=== PATIENT | male | born 1955 | race Caucasian/White ===

== ENCOUNTER → 2023-12-12 06:29 | Day surgery (SDC) | payer OTHER, SELFPAY | LOC: GI 06:29 | PROVIDERS: ATTENDING PHYSICIAN Internal Medicine Gastroenterology | DX: D12.4 Benign neoplasm of descending colon (principal); D12.6 Benign neoplasm of colon, unspecified; K57.30 Diverticulosis of large intestine without perforation or abscess without bleeding; K56.699 Other intestinal obstruction unspecified as to partial versus complete obstruction; K64.8 Other hemorrhoids; R19.5 Other fecal abnormalities; K22.70 Barrett's esophagus without dysplasia; K29.80 Duodenitis without bleeding; K22.89 Other specified disease of esophagus; K44.9 Diaphragmatic hernia without obstruction or gangrene; K31.89 Other diseases of stomach and duodenum; R10.13 Epigastric pain | CPT/HCPCS: 45385; 45381; 43239; 88305; 88342 ==

== ENCOUNTER → 2024-07-21 12:49 | Outpatient (REF) | payer OTHER, SELFPAY | LOC: HWRAD 12:49 | PROVIDERS: ATTENDING PHYSICIAN Internal Medicine | DX: R06.02 Shortness of breath (principal) | CPT/HCPCS: 71046 ==

== ENCOUNTER 2024-07-25 10:20 | Inpatient (IN) | payer OTHER, SELFPAY ==
[2024-07-25] VITALS (37 sets, daily range): BP systolic 90–123; BP diastolic 72–101; PULSE 2–160; BMI 23.4; BMI 22.1
[2024-07-25] MEDS: DUONEB 3 ML INH ×3 (05:49→19:24)
[2024-07-25] MEDS: DECADRON 10 MG IV (05:49)
--- NOTE | 2024-07-25 05:53 | ED.GENMED ---
History of Present Illness
<VIKI Smith - Last Filed: 07/25/24 22:09>
General
Chief Complaint: Breathing Problem
Source: patient and family
Exam Limitations: none
Time Seen by Provider: 07/25/24 05:28
Nursing documentation reviewed up to this point in time: agreed with
History of Present Illness
History of Present Illness:
Patient is a 68yo M w/ newly diagnosed COPD who presents w/ increased work of breathing x3wks. Saw PCP Sunday, dx w/ PNA, and started on Augmentin, azithromycin, prednisone, and albuterol. Pt is visibly SOB w/ accessory muscle use. Family states he
has been like this the past few nights but pt refused to come to ER. Reports PCP told them if sxs worsen or don't improve go to ER. He admits to mild nausea, chronic dry cough, and sore throat. His family states he has not eaten in 3 days due to
SOB. He denies chest pain, palpitations, and diaphoresis.
Past History
<VIKI Smith - Last Filed: 07/25/24 22:09>
Past History
ED Past Medical History: HTN and Other (Hip DJD)
ED Past Surgical History: Orthopedic (Bilateral total hip replacement)
Social History
Tobacco: Smoker
Alcohol: None
Drug: Former user
Living: with family
Employment: Not employed
Family History
Family History: Hypertension; Negative Early CAD or CAD
Review of Systems
<VIKI Smith - Last Filed: 07/25/24 22:09>
Review of Systems
Constitutional: Reports fatigue and chills; Denies fever
EENT: Reports sore throat
Respiratory: Reports cough and trouble breathing
Cardiac: Denies chest pain
ABD/GI: Reports nausea; Denies abdominal pain, vomiting, diarrhea or constipated
: Denies dysuria
Musculoskeletal: Denies joint pain, muscle pain or back pain
Neurological: Denies dizzy, headache, weakness or numbness
Phy Exam
<VIKI Smith - Last Filed: 07/25/24 22:09>
General Physical Exam
General Presentation: severe distress
General age: appears stated age
General Skin: warm and dry
General Habitus: normal
General Mental: alert
Cardiovascular Exam
Cardiovascular Exam: no edema, no gallop, no murmur and irregularly irregular
Pulmonary Exam
Pulmonary Exam: accessory muscle use, generalized wheezing and respiratory distress
Neurological Exam
Neurological Exam: alert, oriented x3, no motor deficits, no sensory deficits and speech normal
Scores
<VIKI Smith - Last Filed: 07/25/24 22:09>
Heart Failure Risk
HF Risk Score: 5
Admission Status: VERY HIGH RISK 39.8% Consider admission to hospital
<Ramez Fernandez DO - Last Filed: 07/25/24 07:25>
Heart Failure Risk
Heart Failure Risk Score: Yes
History of Stroke or TIA: No
History of intubation for respiratory distress: No
Heart rate on ED arrival >/= 110: Yes
SaO2 <90% on arrival on room air: Yes
HR >/=110 during 3min walk test (or too ill to perform test): Yes
ECG has acute ischemic changes: No
Urea >/=12mmol/L (BUN 33.6mg/dL): Yes
Serum CO2>/=35mmol/L: No
Troponin I or T elevated to [place] Level (0.4mg/dL): No
NT-proBNP >/=5,000ng/L (5,000pg/ml): Yes
HF Risk Score: 5
Admission Status: VERY HIGH RISK 39.8% Consider admission to hospital
Sepsis
<VIKI Smith - Last Filed: 07/25/24 22:09>
Sepsis Screening
Sepsis Assessment: Sepsis Ruled Out
Sepsis Screen
Sepsis Screen: Sepsis Ruled Out
Date: 07/25/24
Time: 22:09
Course
<VIKI Smith - Last Filed: 07/25/24 22:09>
Orders/Labs/Results
Orders:
Orders
07/25/24 05:29
EKG [Electrocardiogram (*1)] Urgent
Reason for Study: Shortness of Breath
EKG- Treatment ONCE
07/25/24 05:34
Cardiac Monitoring- Treatment ONCE
07/25/24 05:35
CR Chest Portable - 1 View Urgent
Comment:
Reason For Exam: dyspneA
Reason Study Needs to be Portable: Patient Unstable
07/25/24 05:42
Dexamethasone Sod Phosphate [Decadron] 10 mg IV NOW STA
Ipratropium/Albuterol Sulfate [Duoneb] 3 ml INH R NOW ONE
07/25/24 05:46
Complete Blood Count/With Diff Urgent
Comprehensive Metabolic Panel Urgent
Magnesium Urgent
NT-proBNP Urgent
PTT Urgent
Prothrombin Time Urgent
Troponin I Urgent
07/25/24 Breakfast
Cholesterol Lowering
At Your Request: Limited Participation
Fluid Restriction: 1440 mL/day (48 oz)
Cholesterol Lowering: Sodium, 2 Gram
07/25/24 07:12
Furosemide [Lasix] 60 mg IV NOW STA
Bipap [RESP] Urgent
Patient to use own unit?: No
Inspiratory Pressure (cm H2O): 12
Expiratory Pressure (cm H2O): 5
07/25/24 07:29
Diltiazem HCl [Cardizem] 10 mg IV NOW STA
07/25/24 08:37
Diltiazem 125 mg/125 ml Nss [Cardizem] 125 mg in 125 ml IV NOW
Initial dose in mg/hr, then titrate:: 5
Titrate to keep:: Heart rate 80-100 bpm
Titrate by mg/hr:: 5 mg/hr
Frequency of titrations (minutes):: 15
Maximum dose in mg/hr:: 15
07/25/24 10:02
Admit/Transfer Patient As Directed
Co-Sign Provider:
Level of Care: Inpatient admission
Assign to:: IMU- Intermediate Care
Physician / Group: lazaro/medicine
Diagnosis: acute hypoxic resp failure
Reason for Hospitalization: acute hypoxic resp failure
Expected length of stay greater than two midnights?: Yes
ELOS- Estimated Length of Stay in days: 3
I certify the patient meets the requirements for IP care: Yes
07/25/24 10:03
PRN Pain Medication Management As Directed
May give lesser potent ordered pain med per pt: Yes
preference::
Protocol:: Medication orders for pain may be administered in a
manner that supports deferring to patient preference
when the pt is:
- Requesting an ordered lesser potent pain medication.
Least to most potent pain medications are defined
as: acetaminophen < NSAID < tramadol < opioids
(morphine, oxycodone, hydromorphone).
- Requesting a lesser dose of the same medication IF
ORDERED.
- Requesting a less intrusive route of administration
if both routes are prescribed by the provider (PO <
IV).
07/25/24 10:04
Code Status As Directed
Resuscitation Status: Full Code
07/25/24 11:03
Diltiazem 125 mg/125 ml Nss [Cardizem] 125 mg in 125 ml IV PER PROTOCOL
Initial dose in mg/hr, then titrate:: 5
Titrate to keep:: Heart rate 80-100 bpm
Titrate by mg/hr:: 5 mg/hr
Frequency of titrations (minutes):: 15
Maximum dose in mg/hr:: 15
Diltiazem Extended Release [Cardizem Cd] 120 mg PO DAILY
Ipratropium/Albuterol Sulfate [Duoneb] 3 ml INH R Q4HPRN PRN
07/25/24 11:03
Echo 2D MMode Color/Doppler Urgent
Reason for Study: heart failure
CARDIOLOGY CONSULT Routine
Consulting Provider: Blake Jalloh
Was physician already notified: Yes
HF DIETARY CONSULT Routine
HF EDUCATOR CONSULT Routine
Comment:
Activity As Directed
Activity Level: As Tolerated
Intake/ Output As Directed
Frequency: Per unit guidelines
Patient Education As Directed
Type: CHF folder
Comment: give on admission. Document in Interdisciplinary Education record
Sleep Apnea Assessment by RN As Directed
Comment:
Physician Instructions:
Vital Signs As Directed
Frequency: Other
Additional Instructions:: Q12 or per unit guidelines if more frequent.
Weight As Directed
Frequency: Daily
Type of Scale: Standing Scale
Comment: Daily morning weight. If unable to stand, use balanced bed scale.
Weight As Directed
Frequency: Once
Type of Scale: Standing Scale
Comment: Upon Admission. If unable to stand, use balanced bed scale.
Copd Education [RESP] Routine
Pulse Ox/cont/shift [RESP] Routine
Quantity: 1
Special Instructions: Daily pulse oximetry at rest. If greater than 92% at rest also obtain pulse oximetry
while ambulating as tolerated.
Ot Eval And Treat Routine
Pt Eval And Treat Routine
Activity Level: As Tolerated
US Abdomen Complete/Upper Routine
Comment:
Reason For Exam: transaminitis
DX Deep Vein Thrombosis Video Routine
07/25/24 11:28
COVID-19 Antigen Routine
Source: Nasal Swab
TSH Reflex To Free T4 Urgent
Troponin I Q6H
Comment: at admission & every 6 hours x 2 (3 total), ECG to be done with each level
Vancomycin MRSA PCR Screen Routine
WILLIE Source: Nose
Specimen Description:
07/25/24 12:00
Ipratropium/Albuterol Sulfate [Duoneb] 3 ml INH R QID
07/25/24 16:00
Furosemide [Lasix] 80 mg IV BID AT 0800,1600
Heparin 5,000 units SC Q8
07/25/24 18:15
Troponin I Q6H
Comment: at admission & every 6 hours x 2 (3 total), ECG to be done with each level
07/25/24 23:03
Troponin I Q6H
Comment: at admission & every 6 hours x 2 (3 total), ECG to be done with each level
07/26/24 06:00
Complete Blood Count/No Diff IN AM
Comprehensive Metabolic Panel IN AM
Magnesium IN AM
07/26/24 08:00
Rosuvastatin Calcium [Crestor] 20 mg PO DAILY
07/27/24 06:00
Complete Blood Count/No Diff IN AM
Comprehensive Metabolic Panel IN AM
07/28/24 06:00
Complete Blood Count/No Diff IN AM
Comprehensive Metabolic Panel IN AM
Abnormal Lab Results
07/25/24
05:46
WBC 19.7 H 10^3/uL
(4.8-10.8)
RBC 4.28 L 10^6/uL
(4.70-6.10)
MCV 100.5 H fL
(80.0-94.0)
MCH 36.0 H pg
(27.0-31.0)
Abs Immat Gran (auto) 0.2 H 10^3/uL
(0-0.05)
Absolute Neuts (auto) 15.9 H 10^3/uL
(1.4-6.5)
Absolute Monos (auto) 1.6 H 10^3/uL
(0.1-0.6)
Immature Gran % 0.8 H %
(0-0.5)
Neutrophils % 80.7 H %
(42.2-75.2)
Lymphocytes % 10.0 L %
(20.5-51.1)
PT 17.1 H Sec
(11.4-14.6)
Sodium 133 L mmol/L
(135-145)
Carbon Dioxide 12 L* mmol/L
(22-30)
BUN 45 H mg/dl
(9-20)
Creatinine 1.7 H mg/dL
(0.7-1.3)
Glucose 118 H mg/dl
(70-99)
Total Bilirubin 1.5 H mg/dl
(0.2-1.3)
AST 122 H U/L
(17-59)
ALT 139 H U/L
(0-50)
Troponin I 0.041 H* ng/ml
07/25/24 05:46
07/25/24 05:46
Vital Signs
Initial and Last Documented VS:
Initial Vital Signs
Pulse Resp Pulse Ox
177 30 96
07/25/24 05:25 07/25/24 05:25 07/25/24 05:25
Last Documented Vital Signs
Temp Pulse Resp BP Pulse Ox
97.8 F 128 15 115/78 93
07/25/24 19:19 07/25/24 22:02 07/25/24 19:27 07/25/24 22:02 07/25/24 19:27
Mariselalt;Ramez Fernandez, - Last Filed: 07/25/24 07:25>
Orders/Labs/Results
Orders:
Orders
07/25/24 05:29
EKG [Electrocardiogram (*1)] Urgent
Reason for Study: Shortness of Breath
EKG- Treatment ONCE
07/25/24 05:34
Cardiac Monitoring- Treatment ONCE
07/25/24 05:35
CR Chest Portable - 1 View Urgent
Comment:
Reason For Exam: dyspneA
Reason Study Needs to be Portable: Patient Unstable
07/25/24 05:42
Dexamethasone Sod Phosphate [Decadron] 10 mg IV NOW STA
Ipratropium/Albuterol Sulfate [Duoneb] 3 ml INH R NOW ONE
07/25/24 05:46
Complete Blood Count/With Diff Urgent
Comprehensive Metabolic Panel Urgent
Magnesium Urgent
NT-proBNP Urgent
PTT Urgent
Prothrombin Time Urgent
Troponin I Urgent
07/25/24 Breakfast
Cholesterol Lowering
At Your Request: Limited Participation
Fluid Restriction: 1440 mL/day (48 oz)
Cholesterol Lowering: Sodium, 2 Gram
07/25/24 07:12
Furosemide [Lasix] 60 mg IV NOW STA
Bipap [RESP] Urgent
Patient to use own unit?: No
Inspiratory Pressure (cm H2O): 12
Expiratory Pressure (cm H2O): 5
07/25/24 07:29
Diltiazem HCl [Cardizem] 10 mg IV NOW STA
07/25/24 08:37
Diltiazem 125 mg/125 ml Nss [Cardizem] 125 mg in 125 ml IV NOW
Initial dose in mg/hr, then titrate:: 5
Titrate to keep:: Heart rate 80-100 bpm
Titrate by mg/hr:: 5 mg/hr
Frequency of titrations (minutes):: 15
Maximum dose in mg/hr:: 15
07/25/24 10:02
Admit/Transfer Patient As Directed
Co-Sign Provider:
Level of Care: Inpatient admission
Assign to:: IMU- Intermediate Care
Physician / Group: lazaro/medicine
Diagnosis: acute hypoxic resp failure
Reason for Hospitalization: acute hypoxic resp failure
Expected length of stay greater than two midnights?: Yes
ELOS- Estimated Length of Stay in days: 3
I certify the patient meets the requirements for IP care: Yes
07/25/24 10:03
PRN Pain Medication Management As Directed
May give lesser potent ordered pain med per pt: Yes
preference::
Protocol:: Medication orders for pain may be administered in a
manner that supports deferring to patient preference
when the pt is:
- Requesting an ordered lesser potent pain medication.
Least to most potent pain medications are defined
as: acetaminophen < NSAID < tramadol < opioids
(morphine, oxycodone, hydromorphone).
- Requesting a lesser dose of the same medication IF
ORDERED.
- Requesting a less intrusive route of administration
if both routes are prescribed by the provider (PO <
IV).
07/25/24 10:04
Code Status As Directed
Resuscitation Status: Full Code
07/25/24 11:03
Diltiazem 125 mg/125 ml Nss [Cardizem] 125 mg in 125 ml IV PER PROTOCOL
Initial dose in mg/hr, then titrate:: 5
Titrate to keep:: Heart rate 80-100 bpm
Titrate by mg/hr:: 5 mg/hr
Frequency of titrations (minutes):: 15
Maximum dose in mg/hr:: 15
Diltiazem Extended Release [Cardizem Cd] 120 mg PO DAILY
Ipratropium/Albuterol Sulfate [Duoneb] 3 ml INH R Q4HPRN PRN
07/25/24 11:03
Echo 2D MMode Color/Doppler Urgent
Reason for Study: heart failure
CARDIOLOGY CONSULT Routine
Consulting Provider: Blake Jalloh
Was physician already notified: Yes
HF DIETARY CONSULT Routine
HF EDUCATOR CONSULT Routine
Comment:
Activity As Directed
Activity Level: As Tolerated
Intake/ Output As Directed
Frequency: Per unit guidelines
Patient Education As Directed
Type: CHF folder
Comment: give on admission. Document in Interdisciplinary Education record
Sleep Apnea Assessment by RN As Directed
Comment:
Physician Instructions:
Vital Signs As Directed
Frequency: Other
Additional Instructions:: Q12 or per unit guidelines if more frequent.
Weight As Directed
Frequency: Daily
Type of Scale: Standing Scale
Comment: Daily morning weight. If unable to stand, use balanced bed scale.
Weight As Directed
Frequency: Once
Type of Scale: Standing Scale
Comment: Upon Admission. If unable to stand, use balanced bed scale.
Copd Education [RESP] Routine
Pulse Ox/cont/shift [RESP] Routine
Quantity: 1
Special Instructions: Daily pulse oximetry at rest. If greater than 92% at rest also obtain pulse oximetry
while ambulating as tolerated.
Ot Eval And Treat Routine
Pt Eval And Treat Routine
Activity Level: As Tolerated
US Abdomen Complete/Upper Routine
Comment:
Reason For Exam: transaminitis
DX Deep Vein Thrombosis Video Routine
07/25/24 11:28
COVID-19 Antigen Routine
Source: Nasal Swab
TSH Reflex To Free T4 Urgent
Troponin I Q6H
Comment: at admission & every 6 hours x 2 (3 total), ECG to be done with each level
Vancomycin MRSA PCR Screen Routine
WILLIE Source: Nose
Specimen Description:
07/25/24 12:00
Ipratropium/Albuterol Sulfate [Duoneb] 3 ml INH R QID
07/25/24 16:00
Furosemide [Lasix] 80 mg IV BID AT 0800,1600
Heparin 5,000 units SC Q8
07/25/24 18:15
Troponin I Q6H
Comment: at admission & every 6 hours x 2 (3 total), ECG to be done with each level
07/25/24 23:03
Troponin I Q6H
Comment: at admission & every 6 hours x 2 (3 total), ECG to be done with each level
07/26/24 06:00
Complete Blood Count/No Diff IN AM
Comprehensive Metabolic Panel IN AM
Magnesium IN AM
07/26/24 08:00
Rosuvastatin Calcium [Crestor] 20 mg PO DAILY
07/27/24 06:00
Complete Blood Count/No Diff IN AM
Comprehensive Metabolic Panel IN AM
07/28/24 06:00
Complete Blood Count/No Diff IN AM
Comprehensive Metabolic Panel IN AM
Abnormal Lab Results
07/25/24
05:46
WBC 19.7 H 10^3/uL
(4.8-10.8)
RBC 4.28 L 10^6/uL
(4.70-6.10)
MCV 100.5 H fL
(80.0-94.0)
MCH 36.0 H pg
(27.0-31.0)
Abs Immat Gran (auto) 0.2 H 10^3/uL
(0-0.05)
Absolute Neuts (auto) 15.9 H 10^3/uL
(1.4-6.5)
Absolute Monos (auto) 1.6 H 10^3/uL
(0.1-0.6)
Immature Gran % 0.8 H %
(0-0.5)
Neutrophils % 80.7 H %
(42.2-75.2)
Lymphocytes % 10.0 L %
(20.5-51.1)
PT 17.1 H Sec
(11.4-14.6)
Sodium 133 L mmol/L
(135-145)
Carbon Dioxide 12 L* mmol/L
(22-30)
BUN 45 H mg/dl
(9-20)
Creatinine 1.7 H mg/dL
(0.7-1.3)
Glucose 118 H mg/dl
(70-99)
Total Bilirubin 1.5 H mg/dl
(0.2-1.3)
AST 122 H U/L
(17-59)
ALT 139 H U/L
(0-50)
Troponin I 0.041 H* ng/ml
07/25/24 05:46
07/25/24 05:46
Vital Signs
Initial and Last Documented VS:
Initial Vital Signs
Pulse Resp Pulse Ox
177 30 96
07/25/24 05:25 07/25/24 05:25 07/25/24 05:25
Last Documented Vital Signs
Temp Pulse Resp BP Pulse Ox
97.8 F 128 15 115/78 93
07/25/24 19:19 07/25/24 22:02 07/25/24 19:27 07/25/24 22:02 07/25/24 19:27
<VIKI Smith - Last Filed: 07/25/24 22:09>
*Critical Care Note
Total Time (30-74mins, 75-104mins- exclusive of procedures): Not Applicable
<Ramez Fernandez DO - Last Filed: 07/25/24 07:25>
*Radiology
Radiology exam reviewed: radiology read reviewed
*Pulse Oximetry
Patient hypoxic: yes
*Critical Care Note
Total Time (30-74mins, 75-104mins- exclusive of procedures): 45 (Critical care statement: A total of 45 minutes of critical care time was provided for this patient. This time is separate from time utilized to perform the aforementioned documented
procedures. Aggregate critical care time includes only time during which I was engaged in work directl)
<VIKI Smith - Last Filed: 07/25/24 22:09>
Update Note
Update Note:
07/25/2024 06:50 AM - Patient states he does not feel any better after breathing tx. Continues to endorse SOB and deny chest pain. Pt appears in less respiratory distress than before.
ED Attending Note
<VIKI Smith - Last Filed: 07/25/24 22:09>
-
Portions of this chart may have been created with voice recognition software.� Occasional wrong word or��sound alike� substitutions may have occurred due to the inherent limitations of voice recognition software.
<Ramez Fernandez DO - Last Filed: 07/25/24 07:25>
ED Attending Note
Patient seen and examined by attending physician: Yes
I performed the substantive portion of visit, reviewed & personally made and approve the management plan that is documented in note by myself or LISA.: Yes
ED Attending Note:
This a pleasant 68-year-old male presents to the emergency department with 8 days of severe shortness of breath. According to family he has been struggling with breathing and has progressively been worsening. Family states that he has been in his
current condition for the last 4 days. He does not have home oxygen. He is a lifelong smoker, but he quit recently. Patient has refused to come to the emergency department until tonight. Patient reports no chest pain. He denies any weight gain.
He does have some nausea with a dry cough. He denies any vomiting. Patient has not been able to eat or speak in complete sentences for the last 3 days due to his severe shortness of breath. Patient was seen by his family doctor and advised to
come to the emergency department several days ago.
Vital signs are stable. Patient is hypoxic on room air
Nursing note reviewed. I agree with nursing documentation up to this point in time.
Home Meds and allergies reviewed.
NUMBER AND COMPLEXITY OF PROBLEMS ADDRESSED AT THE ENCOUNTER
� Chronic conditions affecting care: Chronic smoker,
� Acute Exacerbation and/or Progression of Chronic Illness: Exacerbation of newly diagnosed COPD.
� Differential Diagnosis includes: Suspicion of congestive heart failure, COPD exacerbation, pneumonia
AMOUNT AND/OR COMPLEXITY OF DATA TO BE REVIEWED AND ANALYZED
I performed an independent evaluation of the following and my interpretation is:
EKG: EKG shows a atrial fibrillation with rapid ventricular response rate of 172 right axis.
Pulse Ox: Hypoxic on room air
Swaging Machine Adjuster: Sinus Rhythm
CT:
X-rays: Chest x-ray shows pulmonary vascular congestion consistent with congestive heart failure. There are curly B-lines present.
Ultrasound:
Laboratory Studies: White blood cell count of 19.7. proBNP of 21,000. Bicarb of 12. Troponin of 0.041.
Other:
Review of other/old records: Echocardiogram from 2018 minimally thickened mitral valve leaflets with mild mitral regurg. Otherwise normal
Clinical information was obtained by an independent historian:
Prescriptions/Medications Considered but not given:
Further testing considered but not performed:
RISK OF COMPLICATIONS AND/OR MORBIDITY OR MORTALITY OF PATIENT MANAGEMENT
Social determinants of health affecting care: Poor medical compliance
Discussion with other providers:
Escalation of care including admission/observation vs risk of discharge considered: After being observed in the emergency department, patient is unstable for discharge and will be admitted for congestive heart failure
CRITICAL CARE NOTE:
Critical care statement: A total of 45 minutes of critical care time was provided for this patient. This time is separate from time utilized to perform the aforementioned documented procedures. Aggregate critical care time includes only time
during which I was engaged in work directly related to the patient's care, as described above, whether at the bedside or elsewhere in the Emergency Department.
Total Time (exclusive of procedures):
Update:
Discharge Plan
Departure
Patient Disposition: Admit
Date of Disposition: 07/25/24
Time of Disposition: 07:21
Admit to: ICU
Presentation/result/management discussed w/ accepting MD/DO: Hospitalist
Condition: Critical
Discharge Problem:
CHF (congestive heart failure), COPD (chronic obstructive pulmonary disease)
Interventions
Interventions:
*Risk Screen - Suicide Last Done: 07/25/24 05:32
*General Assessment Last Done: 07/25/24 06:06
*Neglect/Abuse Screening Last Done: 07/25/24 06:06
ED- Fall Risk Assessment Last Done: 07/25/24 06:02
*ED COVID-19 Vaccine History Last Done: 07/25/24 06:06
*Nursing Disposition Last Done: 07/25/24 11:26
ED- Cardiac Assessment Last Done: 07/25/24 06:02
ED- Pulmonary Assessment Last Done: 07/25/24 06:02
Discharge Date and Time
Discharge Date/Time: 07/25/24 11:27
[2024-07-25 05:58] LABS: % Basophils 0.2 % (0-2); % Immature Granulocytes 0.8 % (0-0.5); % Monocytes 8.3 % (1.7-9.3); % Neutrophils 80.7 % (42.2-75.2); Absolute Immature Granulocytes 0.2 10^3/uL (0-0.05); Absolute Monocytes 1.6 10^3/uL (0.1-0.6); Absolute Neutrophils 15.9 10^3/uL (1.4-6.5); Hemoglobin 15.4 g/dL (13.0-18.0); Mean Corp Hgb Conc. 35.8 g/dL (33.0-37.0); Mean Corpuscular Volume 100.5 fL (80.0-94.0); Mean Platelet Volume 10.3 fL (7.4-10.4); Nucleated Red Blood Cells % 0 % (-); Platelet Count 221 10^3/uL (130-400); Red Blood Cell Count 4.28 10^6/uL (4.70-6.10); Red Cell Dist. Width 13.3 % (11.5-14.5); White Blood Cell Count 19.7 10^3/uL (4.8-10.8)
[2024-07-25 06:08] LABS: APTT 24.8 Sec (23.4-35.0); INR 1.34; PT 17.1 Sec (11.4-14.6)
[2024-07-25 06:16] LABS: AST (SGOT) 122 U/L (17-59); Albumin 4.4 g/dl (3.5-5.0); Alkaline Phosphatase 118 U/L (38-126); Blood Urea Nitrogen 45 mg/dl (9-20); Calcium 9.8 mg/dl (8.4-10.2); Carbon Dioxide 12 mmol/L (22-30); Chloride 98 mmol/L (98-107); Estimated Creatinine Clearance 43 ml/min; Glucose 118 mg/dl (70-99); Magnesium 2.3 mg/dl (1.6-2.3); Potassium 4.6 mmol/L (3.5-5.1); Sodium 133 mmol/L (135-145); Total Bilirubin 1.5 mg/dl (0.2-1.3); Total Protein 6.7 g/dl (6.3-8.2); eGFR 43.37
[2024-07-25 06:22] LABS: NT-proBNP 21000 pg/ml
[2024-07-25 06:28] LABS: ALT (SGPT) 139 U/L (0-50)
[2024-07-25 06:35] LABS: Troponin I 0.041 ng/ml
[2024-07-25] MEDS: LASIX 60 MG IV (07:18)
[2024-07-25] MEDS: CARDIZEM 10 MG IV (07:52)
[2024-07-25] MEDS: CARDIZEM 125 IV ×2 (08:53→15:36)
--- NOTE | 2024-07-25 11:11 | PTCARENOTE ---
1055: Patient arrived to IMU with ED RN and RT. Patient wearing 6L NC with SpO2 94%. Patient slightly tachypneic. Patient in afib on tele with HR in the 160-170's. BP 99/84 with MAP of 90. Cardizem gtt running at 10 mg/hr. Dr. Ware, Dr. Peña,
and Tracy zepeda texted regarding HR and BP. Care going at this time.
[2024-07-25 11:51] LABS: COVID-19 Antigen Negative (Negative)
[2024-07-25 12:04] LABS: Troponin I 0.046 ng/ml
[2024-07-25 12:24] LABS: TSH Reflex To Free T4 2.57 uIU/ml (0.47-4.68)
--- NOTE | 2024-07-25 12:29 | CON.CAR ---
Addendum entered and electronically signed by Blake Jalloh MD 07/25/24 16:49:
I saw and examined the patient.
The Staffing Director's note was reviewed and I agree with the note.
Comment:
GEN: No distress, awake, Ox3
HEENT: supple, anicteric, mmm
LUNGS: bilat rhonchi
CV: Irreg, S1/S2, 1/6 syst LSB, S3+
ABD: soft, BS+, NT/ND
EXT: No edema
NEURO: Gross non-focal
SKIN: No rash
PLan:
68-year-old male with past medical history of hypertension, hyperlipidemia and COPD with longstanding tobacco and alcohol use presents with acute on chronic heart failure of unknown EF. He states for several weeks has had progressive shortness of
breath, orthopnea, PND, and cough. He was treated with antibiotics albuterol and prednisone with no improvement. He also was found to have a rapid heart rate and was sent to the emergency room he was found to be in new onset rapid atrial
fibrillation and acute congestive heart failure.
Check echocardiogram. I suspect his ejection fraction might be depressed.
Continue IV Cardizem for now. Heart rates remain very poorly controlled. Will start amiodarone with IV bolus and 400 mg p.o. 3 times daily load.
Start IV Lasix 80 mg IV twice daily and follow kidney function. Creatinine is at 1.7 we will need to follow this closely on IV Lasix.
Start IV heparin for anticoagulation. Clinically if he does not improved he likely will need a right and left heart catheterization on Sunday.
If ejection fraction is depressed we will need to initiate beta-simone therapy and wean off Cardizem. Would hold on SONU/ARB/aldosterone blocking agents with creatinine at 1.7. Continue to follow.
Original Note:
Consultation
Consultation Request
Date/Time Consultation Requested: 07/25/2024
Date/Time Consultation Performed: 07/25/2024
Requesting Provider: Dr. Ware
Performing Provider: Aisha Wolfe PA-C for Dr. Jalloh
Reason for Consultation: A-fib with rapid ventricular response
Medical History
-
History of Present Illness:
Patient is a 68-year-old male with past medical history significant for hypertension, hyperlipidemia, COPD with longstanding tobacco abuse and daily alcohol use who presents to emergency department 07/25/2024 with progressively worsening shortness of
breath. Patient and his family report his longtime smoker who has been weaning off cigarettes for approximately 6 months and recently stopped smoking 2 months ago. Patient has had ongoing dyspnea on exertion for at least 6 to 9 months. He is
rather sedentary and does little activity around the house or outside. Over the last 3-4 weeks shortness of breath has gotten worse and he has noted an ongoing cough. He saw primary care physician 07/21/2024 who ordered a chest x-ray which was
concerning for pneumonia and emphysema and he was started on azithromycin, Augmentin, Albuterol and prednisone. In the last 2 days patient developed chest heaviness associated with worsening dyspnea and rapid heartbeat prompting him to seek
emergency medical attention. Patient reports he has had poor appetite over the last 3 days and little oral intake.
In emergency department patient was found to be in atrial fibrillation with rapid ventricular response. Chest x-ray showed diffusely increased interstitial markings bilaterally with more focal opacities within the right midlung and left lung base.
proBNP elevated at 21,000. WBC 19.7, BUN/creatinine 45/1.7. Troponin initially 0.041. Patient was negative for COVID. Patient was given IV steroids, IV Lasix 60 mg and placed on IV diltiazem drip in emergency department. At time of this
evaluation patient is on 15 mL/h of diltiazem and heart rates remain poorly controlled. He continues to have shortness of breath and chest heaviness
Past medical history:
Hypertension
Hyperlipidemia
Tobacco abuse
COPD
Daily alcohol use
Bilateral hip replacements and shoulder replacement
Past Medical History
Past Medical History: Other (see HPI)
Past Surgical History: Orthopedic (Bilateral hip replacements and shoulder replacement)
Social History
Tobacco: Former Smoker (quit 2 months ago (May 2024))
Alcohol: Daily (3-4 vodka drinks daily)
Drug: None
Personal:
Living: With Family
Employment: Retired
Family History
Family History: Other (Father of brain aneurysm, hypertension. Brother of [place])
Allergies / Home Medications
Allergy/AdvReac Type Severity Reaction Status Date / Time
No Known Allergies Allergy Verified 07/25/24 05:24
�Medication �Instructions �Recorded �Confirmed �Type
amlodipine 10 mg tablet 10 mg PO DAILY Blood Pressure 07/25/24 07/25/24 History
amoxicillin 875 mg-potassium 1 tab PO Q12H Infection 07/25/24 07/25/24 History
clavulanate 125 mg tablet
azithromycin 250 mg tablet 250 mg PO DAILY Infection 07/25/24 07/25/24 History
bupropion HCl 150 mg 24 hr tablet, 300 mg PO DAILY Mental 07/25/24 07/25/24 History
extended release Health/Anxiety
ipratropium 0.5 mg-albuterol 3 mg 3 ml inhalation R BID 07/25/24 07/25/24 History
(2.5 mg base)/3 mL nebulization Lung/Breathing Issues
soln
prednisone 20 mg tablet 40 mg PO DAILY Anti-Inflammatory 07/25/24 07/25/24 History
rosuvastatin 20 mg tablet 20 mg PO DAILY High Cholesterol 07/25/24 07/25/24 History
umeclidinium 62.5 mcg-vilanterol 1 inh inhalation DAILY 07/25/24 07/25/24 History
25 mcg/actuation powdr for Lung/Breathing Issues
inhalation (Anoro Ellipta)
Review of Systems
-
History Source: Patient and Family
All other systems: Negative unless noted
Physical Exam
Vital Signs
Temp Pulse Resp BP Pulse Ox
97.8 F 157 27 101/77 94
07/25/24 11:02 07/25/24 12:15 11/08/24 12:15 07/25/24 12:00 07/25/24 12:18
GEN: Appears dyspneic with conversation on 6 L of oxygen lying in bed
HEENT: supple, anicteric, mmm
LUNGS: Diminished breath sounds otherwise CTA, no wheezes/rales
CV: Irregularly irregular, rapid/tachycardic, S1/S2, 1/6 syst murmur, no rub or gallop
ABD: soft, BS+, NT/ND
EXT: No edema, clubbing or cyanosis
NEURO: Gross non-focal
SKIN: No rash, warm, dry
Lab Results
07/25/24 05:46
07/25/24 05:46
Troponin I 0.046 ng/ml H* 07/25/24 11:28
Ruo-F-Ggcxykivdju Pept 17221 pg/ml 07/25/24 05:46
Impression / Plan
-
PCP: Antonieta Green
Can Crimper: Saw Dr. Sherice Perez once in 2018
Impression:
Presents 07/25/2024 with acute shortness of breath
Acute hypoxic respiratory insufficiency
Atrial fibrillation with rapid ventricular response, unknown duration
Acute heart failure with unknown ejection fraction, proBNP 21,000
MT
Abnormal LFTs
Abnormal troponin
Hypertension
Hyperlipidemia
Tobacco abuse
COPD
Daily alcohol use
Bilateral hip replacements and shoulder replacement
Echo 07/25/2024: Ordered
Echo 07/31/2018: EF 55 to 60%. Mild concentric LVH. Mild MR, mild TR, PAP 15 to 20 mmHg
Plan:
-Presents 07/25/2024 with acute shortness of breath
Acute hypoxic respiratory insufficiency initially arrived requiring BiPAP. Now on 6 L nasal cannula
--Longstanding history of tobacco abuse with abnormal PFTs in 2018 suggesting emphysema.
--Outpatient chest x-ray 07/21/2024 showed COPD with diaphragmatic flattening and increased retrosternal airspace as well as interstitial prominence and right perihilar distribution suggesting pneumonia. Treated with Augmentin and Zithromax by PCP
--Now on oral steroids and nebulizer. Would avoid albuterol and consider Xopenex given patient is in rapid atrial fibrillation
Atrial fibrillation with rapid ventricular response, unknown duration
--This is new diagnosis
-- Patient on diltiazem 15 mg/hr. Continues to have rapid ventricular response. May need to consider amiodarone as an alternative if heart rates remain difficult to control
--Would start heparin drip with eventual transition to oral anticoagulation
--Check echocardiogram once heart rate has improved
Acute heart failure with unknown ejection fraction, proBNP 21,000
--Patient got 60 mg IV Lasix in emergency department. Monitor and assess response. Continue IV diuresis
--Check echocardiogram when heart rate improves
--MT with admitting creatinine of 1.7. Continue to follow with diuresis. Creatinine was normal on outpatient labs in 2022
Abnormal troponin: Initial 0.041, repeat 0.046. Trend to peak. Suspect nonischemic myocardial injury secondary to atrial fibrillation with rapid ventricular response and acute heart failure exacerbation
Abnormal LFTs; suspect multifactorial secondary to hepatic congestion from acute heart failure as well as daily alcohol use
Daily alcohol use: Patient admits to having 1 vodka drink yesterday but normally has 3-4 drinks. Initiate MSAS protocol
HPI 07/25/2024:
Patient is a 68-year-old male with past medical history significant for hypertension, hyperlipidemia, COPD with longstanding tobacco abuse and daily alcohol use who presents to emergency department 07/25/2024 with progressively worsening shortness of
breath. Patient and his family report his longtime smoker who has been weaning off cigarettes for approximately 6 months and recently stopped smoking 2 months ago. Patient has had ongoing dyspnea on exertion for at least 6 to 9 months. He is
rather sedentary and does little activity around the house or outside. Over the last 3-4 weeks shortness of breath has gotten worse and he has noted an ongoing cough. He saw primary care physician 07/21/2024 who ordered a chest x-ray which was
concerning for pneumonia and emphysema and he was started on azithromycin, Augmentin, Albuterol and prednisone. In the last 2 days patient developed chest heaviness associated with worsening dyspnea and rapid heartbeat prompting him to seek
emergency medical attention. Patient reports he has had poor appetite over the last 3 days and little oral intake.
In emergency department patient was found to be in atrial fibrillation with rapid ventricular response. Chest x-ray showed diffusely increased interstitial markings bilaterally with more focal opacities within the right midlung and left lung base.
proBNP elevated at 21,000. WBC 19.7, BUN/creatinine 45/1.7. Troponin initially 0.041. Patient was negative for COVID. Patient was given IV steroids, IV Lasix 60 mg and placed on IV diltiazem drip in emergency department. At time of this
evaluation patient is on 15 mL/h of diltiazem and heart rates remain poorly controlled. He continues to have shortness of breath and chest heaviness
Data Reviewed
-
EKG: Report Reviewed by me, Discussed with Physician, Discussed with Nurse, Discussed with Patient and Discussed with Family
Radiology: Report Reviewed by me, Discussed with Physician, Discussed with Nurse, Discussed with Patient and Discussed with Family
Labs: Labs Reviewed by me, Discussed with Physician, Discussed with Nurse, Discussed with Patient and Discussed with Family
Old Records: Reviewed
--- NOTE | 2024-07-25 13:56 | PTCARENOTE ---
Patients HR remains elevated 150's-180's BP 123/85. Patient c/o of nausea and is dry heaving. 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
[2024-07-25] MEDS: ATIVAN 1 MG PO ×2 (14:07→22:00)
[2024-07-25] MEDS: VITAMIN B1 100 MG PO (14:07)
[2024-07-25] MEDS: FOLVITE 1 MG PO (14:07)
[2024-07-25] MEDS: HEPARIN 25000 UNITS/250 ML IV (14:19)
[2024-07-25] MEDS: CORDARONE 103 MG IV (14:36)
[2024-07-25 14:47] LABS: Hematocrit 42.5 % (39.0-52.0); Hemoglobin 15.4 g/dL (13.0-18.0); Mean Corp Hgb Conc. 36.2 g/dL (33.0-37.0); Mean Corpuscular Hgb 36.8 pg (27.0-31.0); Mean Corpuscular Volume 101.7 fL (80.0-94.0); Mean Platelet Volume 10.5 fL (7.4-10.4); Platelet Count 206 10^3/uL (130-400); Red Blood Cell Count 4.18 10^6/uL (4.70-6.10); Red Cell Dist. Width 13.3 % (11.5-14.5); White Blood Cell Count 11.3 10^3/uL (4.8-10.8)
[2024-07-25 14:52] LABS: APTT 26.3 Sec (23.4-35.0)
--- NOTE | 2024-07-25 14:54 | HPS.HSE ---
Family Physician
-
Family Physician: Jenna Green DO
Chief Complaint
-
Shortness of breath
History of Present Illness
60-year-old male with past medical history of hypertension, hyperlipidemia, recent diagnosis of COPD, daily alcohol use now presents for progressive shortness of breath. Over the last 3 to 4 weeks shortness of breath has gotten worse, associated
with coughing. Was started initially on antibiotics for possible pneumonia as well as COPD and started on Anora Ellipta as well as prednisone. Patient continues to have worsening symptoms along with palpitations seeking medical attention. Also
complains of poor appetite. Found to have rapid atrial fibrillation with RVR, x-ray with evidence of marked increased interstitial markings bilaterally with focal opacities within the right midlung and left lung, suspect fluid overload. proBNP
elevated at 21,000, white count 19.7 although on steroids. Creatinine 1.7. Troponin initially 0.041. SARS-CoV-2 negative. Was given IV steroids, IV Lasix, diltiazem drip. Patient was initially on noninvasive ventilation and quickly weaned down
to 6 L. Patient states he feels much better. Patient still requires additional regimen as patient is on diltiazem drip, max rate with borderline blood pressures with heart rate in the 140s.
Medical History
Past Medical History
Past Medical History: Reports Other
Additional Past Medical History:
Hypertension, hyperlipidemia, COPD, alcohol use
Past Surgical History: Reports None
Social History
Tobacco: Former Smoker
Alcohol: Daily
Drug: None
Personal:
Family History
Family History: Not pertinent
Allergies / Home Medications
Allergies reflects when Allergies were last updated in [employer].
Home Medications with original date entered in [employer]
Allergy/Medication List:
Allergies
Allergy/AdvReac Type Severity Reaction Status Date / Time
No Known Allergies Allergy Verified 07/25/24 05:24
Home Medications
amlodipine 10 mg tablet 10 mg PO DAILY Blood Pressure 07/25/24
amoxicillin 875 mg-potassium clavulanate 125 mg tablet 1 tab PO Q12H Infection 07/25/24
azithromycin 250 mg tablet 250 mg PO DAILY Infection 07/25/24
bupropion HCl 150 mg 24 hr tablet, extended release 300 mg PO DAILY Mental Health/Anxiety 07/25/24
ipratropium 0.5 mg-albuterol 3 mg (2.5 mg base)/3 mL nebulization soln 3 ml inhalation R BID Lung/Breathing Issues 07/25/24
prednisone 20 mg tablet 40 mg PO DAILY Anti-Inflammatory 07/25/24
rosuvastatin 20 mg tablet 20 mg PO DAILY High Cholesterol 07/25/24
umeclidinium 62.5 mcg-vilanterol 25 mcg/actuation powdr for inhalation (Anoro Ellipta) 1 inh inhalation DAILY Lung/Breathing Issues 07/25/24
Review of Systems
-
History Source: Patient
A 12 point ROS was completed and negative except as noted: Yes
Physical Exam
Vital Signs
Vital Signs
Temp Pulse Resp BP Pulse Ox
97.8 F 153 32 123/85 93
07/25/24 11:02 07/25/24 13:53 07/25/24 13:53 07/25/24 13:53 07/25/24 13:53
Physical Exam
General: Respiratory Distress and Appears in Distress
HEENT: NormoCephalic
Respiratory: Other (Diminished, 6 L)
Cardiac: Irregular Rhythm
GI: Non Tender
Musculoskeletal: No Clubbing
Skin: Warm and Dry
Neuro: Awake, Alert, Oriented and AO x 3
Hematologic/Lymphatic: No Lymphadenopathy
Psych: Calm
Laboratory Results
-
07/25/24 14:31
07/25/24 05:46
Laboratory Results
PT 17.1 Sec (11.4-14.6) H 07/25/24 05:46
INR 1.34 07/25/24 05:46
APTT 24.8 Sec (23.4-35.0) 07/25/24 05:46
Total Bilirubin 1.5 mg/dl (0.2-1.3) H 07/25/24 05:46
AST 122 U/L (17-59) H 07/25/24 05:46
ALT 139 U/L (0-50) H 07/25/24 05:46
Alkaline Phosphatase 118 U/L (38-126) 07/25/24 05:46
Troponin I 0.046 ng/ml H* 07/25/24 11:28
Data Reviewed
-
Diagnostic Radiology: Image Personally Visualized and interpreted and Report Reviewed by me
Lab Data: Labs Reviewed by me
Impression/Plan
-
IMPRESSION:
68-year-old male presenting for shortness of breath found to have atrial fibrillation with RVR, most likely CHF, COPD exacerbation
PLAN:
#Acute hypoxic respiratory failure
� Most likely secondary to CHF, atrial fibrillation, acute along with subsequent COPD exacerbation
� Treat COPD, CHF, A-fib
� Wean O2 as tolerated, was on noninvasive ventilation, weaned down to 6 L
� Doubt any pneumonia, monitor fever curve, blood pressure
� Low threshold to initiate antibiotics if needed
#Shortness of breath
Suspect secondary to atrial fibrillation, CHF, known type
� Troponins to rule out any cardiac ischemia
� Continue IV diuresis, 80 mg IV Lasix twice daily
� Echocardiogram
� Heart rate control
�DuoNebs standing, as needed
#Atrial fibrillation with RVR
� Diltiazem drip
� Starting amiodarone
� Start heparin drip
� Check cardiac echocardiogram
#COPD exacerbation
� Suspect exacerbation due to bronchospasm from CHF, atrial fibrillation
� Can continue prednisone for now, likely improving with IV diuretics
#Elevate troponin
� Mostly nonischemic myocardial injury
� Trend to peak
#Leukocytosis
� Mostly secondary steroids, acute stress
Monitor fever curve
#Metabolic acidosis
� Mostly secondary MT
� Continue to monitor with resuscitation
#MT
� Continue to monitor with diuresis, most likely cardiorenal
#Transaminitis
� Most likely congestive hepatopathy
� No right upper quadrant tenderness
� Follow-up complete abdominal ultrasound
#Alcohol abuse
� [facility] protocol
[2024-07-25] MEDS: DUONEB INH (15:46)
[2024-07-25] MEDS: LASIX 80 MG IV (16:25)
[2024-07-25] MEDS: PACERONE 400 MG PO ×2 (16:25→22:02)
--- NOTE | 2024-07-25 16:52 | PTCARENOTE ---
Patient AOx3. Patient can be anxious at times. MSAS completed per order and medication provided per order and MAR. Patient wearing 6L NC with SpO2 94%. Patient is tachypneic with RR in 20's. A fib on tele with HR in 130's-160's. Amiodarone bolus
completed per order. Cardizem gtt running per order. Heparin gtt running per order. Call mtz within reach, bed in lowest position and wheels locked.
[2024-07-25 18:49] LABS: Troponin I 0.052 ng/ml
[2024-07-25 21:54] LABS: APTT 44.2 Sec (23.4-35.0)
[2024-07-25] MEDS: OCEAN, SALINE MIST 1 SPRAYS NASAL (22:04)
[2024-07-26] VITALS (54 sets, daily range): BP systolic 75–126; BP diastolic 45–96; PULSE 87–88; O2SAT 92; BMI 22.0
[2024-07-26] MEDS: CARDIZEM 125 IV (00:01)
[2024-07-26 04:26] LABS: Hematocrit 43.3 % (39.0-52.0); Hemoglobin 15.2 g/dL (13.0-18.0); Mean Corp Hgb Conc. 35.1 g/dL (33.0-37.0); Mean Corpuscular Volume 102.6 fL (80.0-94.0); Mean Platelet Volume 10.8 fL (7.4-10.4); Platelet Count 199 10^3/uL (130-400); Red Blood Cell Count 4.22 10^6/uL (4.70-6.10); Red Cell Dist. Width 13.4 % (11.5-14.5); White Blood Cell Count 15.3 10^3/uL (4.8-10.8)
[2024-07-26 04:35] LABS: APTT 55.1 Sec (23.4-35.0)
[2024-07-26 04:55] LABS: Albumin 4.3 g/dl (3.5-5.0); Alkaline Phosphatase 101 U/L (38-126); Blood Urea Nitrogen 63 mg/dl (9-20); Calcium 9.1 mg/dl (8.4-10.2); Carbon Dioxide 10 mmol/L (22-30); Chloride 96 mmol/L (98-107); Estimated Creatinine Clearance 29 ml/min; Glucose 131 mg/dl (70-99); Magnesium 2.4 mg/dl (1.6-2.3); Potassium 4.9 mmol/L (3.5-5.1); Sodium 131 mmol/L (135-145); Total Bilirubin 1.7 mg/dl (0.2-1.3); Total Protein 6.7 g/dl (6.3-8.2); eGFR 28.67
--- NOTE | 2024-07-26 05:17 | PTCARENOTE ---
EKG to confirm Pt converted to SR early this morning, night PRACTICE MANAGEMENT CONSULTANT made aware along with morning labs that were critical. Cardizem gtt going at 5. Pt scoring low on MSAS throughout the night. Pt heparin gtt currently going at 12.5ml/hr. Assessment care
and vitals as charted.
[2024-07-26 05:21] LABS: ALT (SGPT) 1484 U/L (0-50); AST (SGOT) 2182 U/L (17-59)
--- NOTE | 2024-07-26 06:02 | W.PN.UPDATE ---
Update Note
Progress Note Update
RN notified RECORD FILING CLERK, Significantly Elevated ALT AST, Patient with no new complaints. Abdomen distended and round, non tender. Patient on Amiodarone PO, will place hold and repeat CMP. Patient had transaminitis upon admission, US abdomen noted, will
repeat CMP, consider GI consult.
[2024-07-26 07:10] LABS: ALT (SGPT) 1785 U/L (0-50); Albumin 4.1 g/dl (3.5-5.0); Alkaline Phosphatase 103 U/L (38-126); Blood Urea Nitrogen 65 mg/dl (9-20); Calcium 8.8 mg/dl (8.4-10.2); Carbon Dioxide 14 mmol/L (22-30); Chloride 97 mmol/L (98-107); Estimated Creatinine Clearance 30 ml/min; Glucose 141 mg/dl (70-99); Sodium 133 mmol/L (135-145); Total Bilirubin 1.6 mg/dl (0.2-1.3); Total Protein 6.5 g/dl (6.3-8.2); eGFR 30.17
[2024-07-26 07:22] LABS: AST (SGOT) 2872 U/L (17-59)
[2024-07-26] MEDS: DUONEB 3 ML INH ×3 (08:16→15:11)
[2024-07-26] MEDS: LASIX IV ×2 (10:30→12:08)
--- NOTE | 2024-07-26 10:31 | W.PN.CARDCBS ---
Addendum entered and electronically signed by Mireille Bleivns MD 07/26/24 10:51:
Below please ignore statement regarding atrial fibrillation. Paroxysmal atrial fibrillation noted.
Given cardiogenic shock and severe cardiomyopathy immediately stop the diltiazem.
Oral amiodarone for rate control of atrial fibrillation. It was held inadvertently given LFT abnormality.
LFT abnormality is not related to amiodarone
Resuming amiodarone. If needed we will switch to IV.
Original Note:
Today's Communication / Plan
-
Cardiogenic shock with multisystem organ dysfunction start milrinone 0.3 mcg/kg/min
Diuresis as able
Consider cardiac catheterization both right heart cath and left heart cath as able when stabilized.
If no improvement with empiric milrinone s consider [place]-Sharri cath
Discussed with primary service and nursing consider transfer to intensive care unit.
ABG and lactate ordered.
Watch for alcohol withdrawal
Impression / Plan
-
PCP: Antonieta Green
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
Impression:
Cardiogenic shock with multisystem organ dysfunction
Presents 07/25/2024 with acute shortness of breath
Heart failure with reduced ejection fraction acute proBNP 21,000; mildly dilated RV with moderate hypokinesis.
Moderate to severe MR
Pulmonary hypertension, likely secondary to heart failure
Acute hypoxic respiratory insufficiency
Atrial fibrillation with rapid ventricular response, unknown duration
MT
Abnormal LFTs�severely elevated
Abnormal troponin
Hypertension
Hyperlipidemia
Tobacco abuse
COPD
Daily alcohol use
Bilateral hip replacements and shoulder replacement
Echo 07/25/2024: LVEF 10 to 15% with global hypokinesis. Mildly dilated right ventricle with moderate RV hypokinesis. Moderate to severe eccentric MR. Moderate TR with PA pressure 40 to 45 mmHg.
Echo 07/31/2018: EF 55 to 60%. Mild concentric LVH. Mild MR, mild TR, PAP 15 to 20 mmHg
Plan:
Cardiogenic shock with multisystem organ dysfunction. New severe heart failure with volume overload, biventricular dysfunction, increased pulmonary pressures and moderate to severe mitral regurgitation. Discussed degree of illness with patient.
Both acute liver dysfunction and renal dysfunction. Chronic smoker with COPD. Low bicarbonate. ABG and lactate pending.
-Presents 07/25/2024 with acute shortness of breath
Acute hypoxic respiratory insufficiency initially arrived requiring BiPAP. Now on 6 L nasal cannula in the setting of cardiogenic shock.
-Heart failure with reduced ejection fraction
-Start milrinone 0.3 mcg/kg/min
-Diuresis as able
-Multisystem organ dysfunction, follow
-Consider cardiac catheterization both right heart cath and left heart cath as able when stabilized. If no improvement consider [place]-Sharri catheter.
-Discussed with primary service and nursing consider transfer to intensive care unit.
-ABG and lactate ordered.
-COPD shortness of breath
--Longstanding history of tobacco abuse with abnormal PFTs in 2018 suggesting emphysema.
--Initial question of pneumonia defer to primary service
--Now on oral steroids and nebulizer. Would avoid albuterol and consider Xopenex given patient is in rapid atrial fibrillation
Atrial fibrillation with rapid ventricular response, unknown duration
--This is new diagnosis
-- Patient on diltiazem 15 mg/hr. Continues to have rapid ventricular response. May need to consider amiodarone as an alternative if heart rates remain difficult to control
--Would start heparin drip with eventual transition to oral anticoagulation
--Check echocardiogram once heart rate has improved
-MT likely on the basis of cardiogenic shock. Making urine. Continue to follow. Defer to primary service.
-Nonischemic troponin elevation peak so far 0.052. Suspect non-NM myocardial injury secondary to cardiogenic shock in the setting of reduced ejection fraction, atrial fibrillation with rapid ventricular response and acute heart failure exacerbation
-Shock liver likely with abnormal LFTs; suspect multifactorial secondary to hepatic congestion from acute heart failure, shock liver as well as daily alcohol use. Defer to primary service
Daily alcohol use: Feels a little shaky initiate MSAS protocol
Hiccups currently noted
Spoke with primary service/hospitalist and nursing.
33 minutes total critical care time.
HPI 07/25/2024:
Patient is a 68-year-old male with past medical history significant for hypertension, hyperlipidemia, COPD with longstanding tobacco abuse and daily alcohol use who presents to emergency department 07/25/2024 with progressively worsening shortness of
breath. Patient and his family report his longtime smoker who has been weaning off cigarettes for approximately 6 months and recently stopped smoking 2 months ago. Patient has had ongoing dyspnea on exertion for at least 6 to 9 months. He is
rather sedentary and does little activity around the house or outside. Over the last 3-4 weeks shortness of breath has gotten worse and he has noted an ongoing cough. He saw primary care physician 07/21/2024 who ordered a chest x-ray which was
concerning for pneumonia and emphysema and he was started on azithromycin, Augmentin, Albuterol and prednisone. In the last 2 days patient developed chest heaviness associated with worsening dyspnea and rapid heartbeat prompting him to seek
emergency medical attention. Patient reports he has had poor appetite over the last 3 days and little oral intake.
In emergency department patient was found to be in atrial fibrillation with rapid ventricular response. Chest x-ray showed diffusely increased interstitial markings bilaterally with more focal opacities within the right midlung and left lung base.
proBNP elevated at 21,000. WBC 19.7, BUN/creatinine 45/1.7. Troponin initially 0.041. Patient was negative for COVID. Patient was given IV steroids, IV Lasix 60 mg and placed on IV diltiazem drip in emergency department. At time of this
evaluation patient is on 15 mL/h of diltiazem and heart rates remain poorly controlled. He continues to have shortness of breath and chest heaviness
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
Subjective
Date of Service: July 26, 2024
Feels short of breath. Now has hiccups. Denies chest pain.
Objective
Labs:
07/26/24 03:48
07/26/24 06:14
Labs
Hgb 15.2 g/dL (13.0-18.0) 07/26/24 03:48
Hct 43.3 % (39.0-52.0) 07/26/24 03:48
Plt Count 199 10^3/uL (130-400) 07/26/24 03:48
PT Cancelled 07/26/24 03:48
INR Cancelled 07/26/24 03:48
APTT 55.1 Sec (23.4-35.0) H 07/26/24 03:48
Sodium 133 mmol/L (135-145) L 07/26/24 06:14
Potassium 4.0 mmol/L (3.5-5.1) 07/26/24 06:14
BUN 65 mg/dl (9-20) H 07/26/24 06:14
Creatinine 2.3 mg/dL (0.7-1.3) H 07/26/24 06:14
Glucose 141 mg/dl (70-99) H 07/26/24 06:14
Troponins
07/25/24 07/25/24 07/25/24
05:46 11:28 18:15
Troponin I 0.041 H* 0.046 H* 0.052 H*
07/25/24
23:03
Troponin I Cancelled
Vital Signs and I&O:
Vital Signs
Temp Pulse Resp BP Pulse Ox
97.1 F 91 20 121/83 94
07/26/24 07:29 07/26/24 08:20 07/26/24 08:20 07/26/24 06:00 07/26/24 08:20
Vital Signs
Temp Pulse Resp BP Pulse Ox
97.1 F 91 20 121/83 94
07/26/24 07:29 07/26/24 08:20 07/26/24 08:20 07/26/24 06:00 07/26/24 08:20
Intake & Output
07/24/24 07/25/24 07/26/24 07/27/24
06:59 06:59 06:59 06:59
Intake Total 833 / 833
Output Total 375 / 375
Balance 458 / 458
Physical Exam
Physical Exam
General: Ill-appearing man on oxygen
Neck: JVD to mandible
Heart: Distant heart sounds a right
Lungs: Oxygen in place with coarse breath sounds.
Abdomen: distended.
Neuro: Grossly nonfocal, awake, alert and oriented x3.
[2024-07-26 10:33] LABS: B.E. -4.2 mmol/L; HCO3 17.5 mmol/L (21-28); O2 Saturation % 83.7 % (94-98); PCO2 24 mmHg (35-48); pH 7.47 (7.35-7.45)
[2024-07-26 10:34] LABS: O2 Therapy 94% on 4 L NC
[2024-07-26 10:35] LABS: PO2 52 mmHg (83-108)
[2024-07-26] MEDS: VITAMIN B1 100 MG PO (10:37)
[2024-07-26] MEDS: PACERONE 400 MG PO ×2 (10:37→16:59)
[2024-07-26] MEDS: FOLVITE 1 MG PO (10:37)
[2024-07-26] MEDS: DELTASONE 40 MG PO (10:37)
[2024-07-26] MEDS: CRESTOR 20 MG PO (10:38)
[2024-07-26 10:54] LABS: Lactic Acid 3.4 mmol/L (0.7-2.0)
[2024-07-26 11:08] LABS: APTT 75.1 Sec (23.4-35.0)
[2024-07-26] MEDS: PRIMACOR 20 MG 100 IV (12:04)
--- NOTE | 2024-07-26 13:04 | CHAP ---
Mr. Mcmahan was welcoming - said he's doing okay. He mentioned quitting smoking a while back, and wondered if that was related to his present situation. He said he has good support - enjoys fishing with his son and gardening. He declined prayer.
Emotional support provided.
--- NOTE | 2024-07-26 14:48 | PTCARENOTE ---
this am dose lasix not given d/t low urine output, low bp., increased creatinine. 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 ptt therapeutic at 1030 am draw. abgs and lactic acid sent per order and results relayed to . cardizem drip stopped and milrinone
initiated at 0.3 mcg/kg. pt ordered for transfer to icu. report given to Jose and pt transferred with belongings.
--- NOTE | 2024-07-26 14:57 | PTCARENOTE ---
Pt transferred to ICU awake and alert. denies pain. NS with BBB. Lungs are diminished throughout. BENNETT on 6L. abd soft, NT. cont b&b 200 yellow urine in urinal. skin CDI. No edema, weak PP b/l. MSAS per protocol. monitoring Heparin and milirione Gtt.
Next PTT ordered. CB in reach.
--- NOTE | 2024-07-26 15:22 | W.PN.HOSP.TC ---
Today's Communication/Plan
-
Restart amiodarone, please do not stop unless confirmed by cardiology. Transaminitis not related to amiodarone
Appropriately stopped Cardizem
Continue heparin drip
Switch to Xopenex, ipratropium nebs in setting of atrial fibrillation with RVR
Monitor LFTs closely with treatment of shock
Initiate milrinone
Continue aggressive IV diuresis
Maintain MAP greater than 65
Monitor urine output
Remain on O2, NIV as tolerated; O2 goal greater than 90%
Ativan as needed, CIWA protocol
Can continue prednisone for now
Follow-up repeat lactate
CBC, CMP closely
Assessment / Plan
Assessment / Plan
Physical Exam
General: 4L NC
HEENT: NormoCephalic
Respiratory: Other (Diminished, 4 L)
Cardiac: Irregular Rhythm; JVP
GI: Non Tender
Musculoskeletal: No Clubbing
Skin: Warm and Dry
Neuro: Awake, Alert, Oriented and AO x 3
Hematologic/Lymphatic: No Lymphadenopathy
Psych: Calm
68-year-old male presenting for shortness of breath found to have atrial fibrillation with RVR, most likely Cardiogenic Shock +/- COPD exacerbation
PLAN:
#Acute hypoxic respiratory failure
� Most likely secondary to Cardiogenic Shock and atrial fibrillation, +/- COPD exacerbation
� Treat COPD, CHF, A-fib
� Wean O2 as tolerated, was on noninvasive ventilation, weaned down to 6 L
�May benefit from NIV at this time, as needed
� Doubt any pneumonia, monitor fever curve, blood pressure
� Low threshold to initiate antibiotics if needed
#Cardiogenic shock with multisystem organ failure
#Acute HFrEF
#Lactic acidosis
�EF 10% with global hypokinesis, moderate to severe eccentric MR
� Continue IV diuresis as tolerated
� Maintain maps greater than 65
� Start milrinone
� Cardiac arrhythmia precludes norepinephrine, epinephrine use at this time
� Should consider cardiac cath once stabilized, monitoring serum creatinine
� Transfer over to ICU
�Trend lactate until under 2
#Atrial fibrillation with RVR, paroxysmal
� Stop diltiazem drip due to heart failure
� Restart amiodarone, please do not hold at this time�unrelated to transaminitis
� heparin drip
#COPD exacerbation
� Suspect exacerbation due to bronchospasm from CHF, atrial fibrillation
� Can continue prednisone for now, likely improving with IV diuretics, volume status
�Switch to Xopenex
#Elevate troponin
� Mostly nonischemic myocardial injury secondary to seizure exacerbation, shock, atrial fibrillation
� No chest pain
� Trend to peak
� Will need right/left heart cath
#Leukocytosis
� Mostly secondary steroids, acute stress
Monitor fever curve
#Metabolic acidosis
� Mostly secondary MT
� Continue to monitor with resuscitation
#MT�most likely cardiorenal, cardiogenic shock
� Still urinating, monitor I's and O's, urine output
� Continue to monitor with diuresis, shock treatment
#Transaminitis
� Most likely congestive hepatopathy, shock liver
� No right upper quadrant tenderness
-� Alk phos normal, bili mildly elevated, low clinical suspicion of gallbladder pathology
-monitor and engage GI if worsening
#Hyponatremia
# Mild�continue to monitor
#Alcohol abuse
� [facility] protocol
- ativan prn
# Abdominal aortic aneurysm measuring 3.7 cm in diameter.
#DVT ppx
-heparin ggt
Total time spent on today's encounter was 55 minutes which included time spent in counseling the patient/family regarding diagnosis and treatment plan as listed above, goals of care, and symptom management. Case was discussed with nursing staff,
specialists, and care coordinators/case management. All labs and imaging personally reviewed by me. Remainder the time spent in detailed review of previous records, lab data, imaging, and other medical provider documentation.
Anticipated Discharge: > 48 hours
Subjective/Interval History
-
Date of Service: July 26, 2024
Remained on 4 L, states he feels better than yesterday
Objective Data
-
Labs:
Laboratory Results
07/26/24 07/26/24 07/26/24
03:48 06:14 10:25
WBC 15.3 H
Hgb 15.2
Hct 43.3
Plt Count 199
PT Cancelled
INR Cancelled
APTT 55.1 H
HCO3 17.5 L
Sodium 131 L 133 L
Potassium 4.9 4.0
Chloride 96 L 97 L
Carbon Dioxide 10 L* 14 L*
BUN 63 H 65 H
Creatinine 2.4 H 2.3 H
Glucose 131 H 141 H
Calcium 9.1 8.8
Total Bilirubin 1.7 H 1.6 H
AST 2182 H* 2872 H*
ALT 1484 H* 1785 H*
Alkaline Phosphatase 101 103
07/26/24 07/26/24
10:35 17:00
WBC
Hgb
Hct
Plt Count
PT
INR
APTT 75.1 H Pending
HCO3
Sodium
Potassium
Chloride
Carbon Dioxide
BUN
Creatinine
Glucose
Calcium
Total Bilirubin
AST
ALT
Alkaline Phosphatase
Vital Signs:
Vital Signs
Temp Pulse Resp BP Pulse Ox
98.3 F 85 22 95/64 95
07/26/24 14:42 07/26/24 15:11 07/26/24 15:11 07/26/24 15:00 07/26/24 15:11
I&O
07/25/24 07/26/24 07/27/24
06:59 06:59 06:59
Intake Total 833 / 833 712.6 / 712.6
Output Total 375 / 375 450 / 450
Balance 458 / 458 262.6 / 262.6
Review of Systems
-
History Source: Patient
All other systems: Not reviewed unless documented
Data Reviewed
-
Diagnostic Radiology: Image personally visualized and interpreted and Report Reviewed by me
CT Scan: Image personally visualized and interpreted
Ultrasound: Image personally visualized and interpreted
Labs: Labs Reviewed by me
[2024-07-26] MEDS: ATROVENT NEBULES INH (15:54)
--- NOTE | 2024-07-26 16:06 | CON.INTV ---
Consultation
Consultation Request
Date/Time Consultation Requested: 07/26/2024
Date/Time Consultation Performed: 07/26/2024
Requesting Provider: Dr. Ware
Performing Provider: Dr. Sunil Henry
Reason for Consultation: Cardiogenic shock
Medical History
-
History of Present Illness:
60-year-old man with a past medical history significant for hypertension, hyperlipidemia, COPD, alcohol abuse who presented with exertional shortness of breath. Reports 3 to 4 weeks of progressive symptoms associated with coughing. Initially
treated for COPD with inhalers and steroids. Found to have rapid atrial fibrillation and x-ray suggestive of pulmonary edema. proBNP was significantly elevated.
He was found to be on acute kidney injury with increased troponins as well.
Patient was managed with IV Cardizem and diuretics. Also required noninvasive mechanical ventilation for increased work of breathing and supplemental oxygen.
Subsequently developed shock liver, metabolic acidosis and worsening acute kidney injury.
Discussed with cardiology, repeat echocardiogram showed ejection fraction of 10%. Patient was seen by cardiology several years ago and he lost to follow-up.
He was transferred to the critical care unit for inotrope support.
Past Medical History
Past Medical History: Other (See assessment and plan)
Social History
Tobacco: Former Smoker
Alcohol: Daily
Drug: None
Personal:
Living: With Family
Family History
Family History: Reviewed & Not Pertinent
Allergies / Home Medications
Allergies
Allergy/AdvReac Type Severity Reaction Status Date / Time
No Known Allergies Allergy Verified 07/25/24 05:24
Home Medications
�Medication �Instructions �Recorded �Confirmed �Last Taken �Type
amlodipine 10 mg tablet 10 mg PO DAILY Blood Pressure 07/25/24 07/25/24 07/24/24 History
amoxicillin 875 mg-potassium 1 tab PO Q12H Infection 07/25/24 07/25/24 07/24/24 History
clavulanate 125 mg tablet
azithromycin 250 mg tablet 250 mg PO DAILY Infection 1107/25/24 07/24/24 History
bupropion HCl 150 mg 24 hr tablet, 300 mg PO DAILY Mental 07/25/24 07/25/24 07/24/24 History
extended release Health/Anxiety
ipratropium 0.5 mg-albuterol 3 mg 3 ml inhalation R BID 07/25/24 07/25/24 07/24/24 History
(2.5 mg base)/3 mL nebulization Lung/Breathing Issues
soln
prednisone 20 mg tablet 40 mg PO DAILY Anti-Inflammatory 07/25/24 07/25/24 07/24/24 History
rosuvastatin 20 mg tablet 20 mg PO DAILY High Cholesterol 07/25/24 07/25/24 07/24/24 History
umeclidinium 62.5 mcg-vilanterol 1 inh inhalation DAILY 07/25/24 07/25/24 07/24/24 History
25 mcg/actuation powdr for Lung/Breathing Issues
inhalation (Anoro Ellipta)
Review of Systems
-
History Source: Patient
All other systems: Negative unless noted
Vitals / Labs / Diagnostic Testing
Vital Signs
Temp Pulse Resp BP Pulse Ox
98.3 F 86 20 100/64 95
07/26/24 14:42 07/26/24 15:45 07/26/24 15:45 07/26/24 15:45 07/26/24 15:45
Lab Data
07/26/24 03:48
07/26/24 06:14
Laboratory Results
07/25/24 07/26/24 07/26/24
21:33 03:48 10:25
PT Cancelled
INR Cancelled
APTT 44.2 H 55.1 H
pH 7.47 H
pCO2 24 L
pO2 52 L*
HCO3 17.5 L
O2 Delivery Level 94% on 4 l nc
07/26/24
10:35
PT
INR
APTT 75.1 H
pH
pCO2
pO2
HCO3
O2 Delivery Level
Microbiology
07/25/24 11:28 Nose Nasal Screen MRSA (PCR) - Final
MRSA not detected - performed by PCR methodology.
Diagnostic Testing:
Physical Exam
-
HEENT: Normocephalic
Cardiovascular: S1/S2
Respiratory: Wheeze (n) and Rales
GI: Soft
Neurology: Awake, Alert, AO x 3 and No Motor Deficits
Skin: Warm
General: Respiratory Distress (Mild with activity)
Assessment
-
Cardiogenic shock
Systolic cardiomyopathy, probably mediated by atrial fibrillation plus or minus alcohol
Cannot rule out coronary artery disease.
Echocardiogram 07/25/2024: Ejection fraction 10-15%. Stage II diastolic dysfunction. Global hypokinesis. RV hypokinesis. Moderate to severe MR. Moderate TR. Pulmonary pressures of 40 to 45 mmHg. Decreased compared to prior
Chest x-ray: Reviewed 07/26/2024: Mild pulmonary vascular congestion. Bilateral pleural effusion
Atrial fibrillation with rapid ventricular response-heart rate improved
Increased troponin: Non-HI
Acute kidney injury-cardiorenal syndrome
Anion gap metabolic acidosis-secondary to shock
Shock liver
COPD with possible exacerbation
Leukocytosis possibly reactive
Conditions present prior admission:
COPD
Former smoker
Alcohol abuse
Assessment and plan:
Critically ill, cardiogenic shock with ischemic liver, acute kidney injury, respiratory failure requiring noninvasive mechanical ventilation.
AB. on 4 L
-
Ejection fraction decreased to 10% compared to 2018.
Cardizem has been discontinued
Amiodarone has been started for rate control
Heparin drip-follow PTT
Discussed with cardiology: Inotrope support-milrinone. Dobutamine also may be an option down the line.
Continue with goal-directed therapy for heart failure per cardiology
Continue oxygen implementation currently 6 L nasal cannula with pulse ox 96%.
Will obtain a PICC line
Patient may need right heart catheterization and left heart catheterization.
Arterial line may be necessary depending on hemodynamics
Meza urinary output and renal function
Trend lactic acid
-
Follow LFTs
Ultrasound of the liver was normal
-
From the COPD perspective, not significantly bronchospastic.
Okay to continue prednisone taper
Avoid beta agonist
Okay to use Xopenex/Atrovent for nebulizer.
-
Okay to use BiPAP as needed at at bedtime for hemodynamic support.
-
MSAS protocol
Currently he calm and cooperative
Folic and thiamine
-
Continue diet
Aspiration precaution
-
High risk situation
-
Critical care statement: A total of 45 minutes of critical care time was provided for this patient today. This includes management of unstable vital signs, evaluation of the patient at bedside, reviewing the patient's pertinent medical records
including ventilator settings, arterial blood gases, radiographs, microbiology, laboratory evaluations and discussion with primary team, critical care nursing, and respiratory therapy.
[2024-07-26] MEDS: LASIX 80 MG IV (16:59)
[2024-07-26 17:19] LABS: APTT 105.1 Sec (23.4-35.0)
[2024-07-26 17:20] LABS: Lactic Acid 1.8 mmol/L (0.7-2.0)
--- NOTE | 2024-07-26 17:31 | PTCARENOTE ---
PTT therapeutic x2. Continue same dose per protocol. Lactic <2. 94% on 6L, continues with BENNETT/rest. Discussed Lasix r/t BP. 200ml urine output. Pt remains awake and alert with family at bedside. CB in reach
[2024-07-26] MEDS: ATIVAN 1 MG PO (17:52)
--- NOTE | 2024-07-26 17:57 | PTCARENOTE ---
Pt HR increased 160's. obtain EKG Afib RVR. pt only complaint of feeling w/d MSAS 6 continue with protocol. reaching out to cardiology. new orders rc'd. family updated.
[2024-07-26] MEDS: CORDARONE 103 MG IV (18:30)
[2024-07-26] MEDS: CORDARONE 518 MG IV (18:35)
--- NOTE | 2024-07-26 18:40 | PTCARENOTE ---
updated cardiology d/t afib RVR. Picc placed, pending CXR. amiodarone bolus and gtt. see MAR
[2024-07-26] MEDS: XOPENEX 1.25 MG INHALANT SOLUTION INH (19:31)
[2024-07-26] MEDS: ATROVENT NEBULES 0.5 MG INH (19:54)
--- NOTE | 2024-07-26 20:00 | PTCARENOTE ---
Received pt via handoff. Pt AAOx3, MSAS of 6, ALBRIGHT. Patient in rapid Afib, palpable pulses on all extremities w/ no edema. Pt 96% on 6L, lung sounds diminished throughout. Hypoactive bowel sounds in all 4Q. Pt using urinal, clear yellow urine. Skin
intact with scattered ecchymosis. Right double lumen PICC placed. Amio, Milrinone and heparin gtts running see flowsheet. Call mtz at bedside, will continue to monitor.
--- NOTE | 2024-07-26 23:12 | PTCARENOTE ---
Pt's rapid AFIB broke. Call mtz at bedside, will continue to monitor.
[2024-07-27] VITALS (53 sets, daily range): BP systolic 81–114; BP diastolic 40–84; PULSE 2–103; O2SAT 91; BMI 22.4
[2024-07-27] MEDS: PRIMACOR 20 MG 100 IV ×2 (00:22→16:18)
--- NOTE | 2024-07-27 00:33 | PTCARENOTE ---
Pt placed on Bipap, tolerating well. Gtts running per worklist.
--- NOTE | 2024-07-27 03:59 | PTCARENOTE ---
Pt requested Bipap mask to be removed, back on 6L NC. Labs drawn and hygiene performed.
[2024-07-27 04:04] LABS: Hematocrit 34.7 % (39.0-52.0); Hemoglobin 12.9 g/dL (13.0-18.0); Mean Corp Hgb Conc. 37.2 g/dL (33.0-37.0); Mean Corpuscular Hgb 36.5 pg (27.0-31.0); Mean Corpuscular Volume 98.3 fL (80.0-94.0); Mean Platelet Volume 10.9 fL (7.4-10.4); Platelet Count 177 10^3/uL (130-400); Red Blood Cell Count 3.53 10^6/uL (4.70-6.10); Red Cell Dist. Width 12.9 % (11.5-14.5); White Blood Cell Count 16.1 10^3/uL (4.8-10.8)
[2024-07-27 04:32] LABS: APTT 181.6 Sec (23.4-35.0)
[2024-07-27 04:35] LABS: Albumin 3.5 g/dl (3.5-5.0); Alkaline Phosphatase 106 U/L (38-126); Blood Urea Nitrogen 67 mg/dl (9-20); Calcium 8.1 mg/dl (8.4-10.2); Carbon Dioxide 23 mmol/L (22-30); Chloride 96 mmol/L (98-107); Estimated Creatinine Clearance 35 ml/min; Glucose 169 mg/dl (70-99); Magnesium 2.5 mg/dl (1.6-2.3); Phosphorus 4.3 mg/dl (2.5-4.5); Potassium 3.3 mmol/L (3.5-5.1); Sodium 133 mmol/L (135-145); Total Bilirubin 0.9 mg/dl (0.2-1.3); Total Protein 5.8 g/dl (6.3-8.2); eGFR 35.68
[2024-07-27 04:42] LABS: ALT (SGPT) 1368 U/L (0-50); AST (SGOT) 1073 U/L (17-59)
[2024-07-27] MEDS: KCL 270 MEQ IV (06:01)
[2024-07-27] MEDS: ATROVENT NEBULES 0.5 MG INH ×2 (07:53→11:20)
[2024-07-27] MEDS: XOPENEX 1.25 MG INHALANT SOLUTION INH ×2 (07:53→11:20)
[2024-07-27] MEDS: FOLVITE 1 MG PO (07:56)
[2024-07-27] MEDS: CRESTOR 20 MG PO (07:56)
[2024-07-27] MEDS: VITAMIN B1 100 MG PO (07:56)
[2024-07-27] MEDS: DELTASONE 40 MG PO (07:57)
--- NOTE | 2024-07-27 09:22 | W.PN.INTV ---
Today's Communication / Plan
Recommendations
Continue milrinone per cardiology
Follow hemodynamics
Follow renal function
Potassium has been repleted
Continue nebulizer
Prednisone taper
Eventual catheterization during this admission
MSAS protocol continues
Assessment
-
68-year-old man with history of tobacco abuse, alcohol abuse, initially admitted with shortness of breath, hypoxemia. Treated for COPD exacerbation, found to be in heart failure. Subsequently developed rapid atrial fibrillation-acute kidney
injury, liver injury. Clinical picture consistent with cardiogenic shock-he was transferred to the critical care unit 07/26/2024 for inotrope support.
Cardiogenic shock
Systolic cardiomyopathy, probably mediated by atrial fibrillation and alcohol abuse
Cannot rule out coronary artery disease.
Echocardiogram 07/25/2024: Ejection fraction 10-15%. Stage II diastolic dysfunction. Global hypokinesis. RV hypokinesis. Moderate to severe MR. Moderate TR. Pulmonary pressures of 40 to 45 mmHg. Decreased compared to prior in 2018 when it
was normal.
Chest x-ray: 07/26/2024: Mild pulmonary vascular congestion. Bilateral pleural effusion
Atrial fibrillation with rapid ventricular response-heart rate improved
Increased troponin: Non-OH
Acute kidney injury-cardiorenal syndrome
Anion gap metabolic acidosis-secondary to shock
Shock liver
COPD with possible milid exacerbation
Leukocytosis possibly reactive
Conditions present prior admission:
COPD
Former smoker
Alcohol abuse
Assessment and plan:
Critically ill, cardiogenic shock with ischemic liver, acute kidney injury, respiratory failure requiring noninvasive mechanical ventilation. Transferred to the critical care unit 07/26/2024
Ejection fraction decreased to 10% compared to 2018.
-
Overnight remain on milrinone-titrate per cardiology
IV diuretics as able
PICC line has been placed
Blood pressures remain borderline
Renal function improved
LFTs improved
Lactic acid trending lower-1.8 on 07/26/2024
-
Cardizem has been discontinued
Amiodarone has been started for rate control
Heparin drip-follow PTT
Continue with goal-directed therapy for heart failure per cardiology
Patient will need right heart catheterization and left heart catheterization-dorimg this hospital stay - Cardiology planning possibly Sunday, depending on renal function.
Arterial line may be necessary depending on hemodynamics
Follow urinary output and renal function
-
Follow YHQm-twffsapar-rxealk shock liver
Ultrasound of the liver was normal
-
Hypokalemia: Repleted
Follow BMP/magnesium later today.
-
From the COPD perspective, not significantly bronchospastic.
Patient states that he stopped smoking 3 months ago.
Patient has a CT of the chest from 05/02/2018: Reviewed, showed at that time moderate emphysema. Small 3 mm lung nodule on the left mainstem bronchus. No other significant abnormalities. Patient is due for low-dose radiation CAT scan for lung
cancer screening. He is aware.
Chest x-ray this admission: Cardiomegaly, possible layering bilateral pleural effusion.
On Anoro in outpx, recently started-no PFT available. He has not seen pulmonary.
Continue oxygen implementation currently 6 L nasal cannula with pulse ox 96%. Not previously on supplemental oxygen.
ABG 07/26/2024: 7.47/
Okay to continue prednisone taper
Avoid beta agonist-atrial fibrillation
Continue Xopenex/Atrovent for nebulizer.
-
Okay to use BiPAP-at bedtime and as needed.
-
MSAS protocol
Currently he calm and cooperative
Folic and thiamine
-
Continue diet
Aspiration precaution
-
Critical care statement: A total of 35 minutes of critical care time was provided for this patient today. This includes management of unstable vital signs, evaluation of the patient at bedside, reviewing the patient's pertinent medical records
including ventilator settings, arterial blood gases, radiographs, microbiology, laboratory evaluations and discussion with primary team, critical care nursing, and respiratory therapy.
Subjective Dataa
Subjective Data
Date of Service:
Date of Service: July 27, 2024
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
Subjective:
Patient offers no new complaints
Denies lightheadedness or chest pain
Denies nausea or vomiting
Review of Systems
General: Fever (n)
Cardiopulmonary: Dyspnea (None at rest), Cough (Chronic) and Sputum Production (Not significant)
GI: Abdominal Pain (n) and Nausea (n)
Objective Data
Data Reviewed
Vital Signs / I&O / Oxygen:
Vital Signs
Temp Pulse Resp BP Pulse Ox
98.6 F 75 17 81/62 94
07/27/24 03:59 07/27/24 07:56 07/27/24 07:56 07/27/24 06:00 07/27/24 07:56
Intake and Output
07/26/24 07/27/24 07/28/24
06:59 06:59 06:59
Intake Total 833 / 833 1573.4 / 1606.8 100.2 / 100.2
Output Total 375 / 375 1050 / 1300 400 / 400
Balance 458 / 458 523.4 / 306.8 -299.8 / -299.8
SaO2 94
Nasal Cannula flow liters per 6
minute
Physical Exam
General: Comfortable
HEENT: Normocephalic
Cardiovascular: S1-S2
Respiratory: Non-Labored Respirations
GI: Soft and Non Distended
Neurology: Awake, Alert, AO x 3 and No Motor Deficits
Skin: Warm
Labs/Micro/Reports
Lab Data
07/27/24 03:40
07/27/24 03:40
Laboratory Results
07/26/24 07/26/24 07/26/24
10:25 10:35 16:57
APTT 75.1 H 105.1 H
pH 7.47 H
pCO2 24 L
pO2 52 L*
HCO3 17.5 L
O2 Delivery Level 94% on 4 l nc
07/27/24
03:40
APTT 181.6 H*
pH
pCO2
pO2
HCO3
O2 Delivery Level
Microbiology
07/25/24 11:28 Nose Nasal Screen MRSA (PCR) - Final
MRSA not detected - performed by PCR methodology.
[2024-07-27] MEDS: LASIX IV (09:59)
--- NOTE | 2024-07-27 10:39 | W.PN.CARDCBS ---
Today's Communication / Plan
-
Continue milrinone 0.3 mcg/kg/min. If blood pressure starts to decrease consider the addition of low-dose dobutamine 3 mcg/kg/min
Will resume Lasix later today 40 mg IV twice daily. Follow input/output and weights.
Cardiac catheterization as able , likely Sunday as long as renal function remains stable.
Contribution of critical illness from rapid atrial fibrillation continue to try to maintain sinus rhythm.
Continue heparin drip.
Switch IV to oral amiodarone.
QT interval is prolonged and likely multifactorial. Reassess EKG in the morning. Replete potassium. Avoid other QT prolonging medication. Follow on amiodarone.
Impression / Plan
-
PCP: Antonieta Green
Sporting Goods Salesperson: Saw Dr. Sherice Perez once in 2017
Impression:
Cardiogenic shock with multisystem organ dysfunction
Presents 07/25/2024 with acute shortness of breath
Heart failure with reduced ejection fraction acute proBNP 21,000; mildly dilated RV with moderate hypokinesis.
Prolonged QT
Moderate to severe MR
Pulmonary hypertension, likely secondary to heart failure
Acute hypoxic respiratory insufficiency
Atrial fibrillation with rapid ventricular response, unknown duration
MT
Abnormal LFTs�severely elevated
Abnormal troponin
Hypertension
Hyperlipidemia
Tobacco abuse
COPD
Daily alcohol use
Bilateral hip replacements and shoulder replacement
Echo 07/25/2024: LVEF 10 to 15% with global hypokinesis. Mildly dilated right ventricle with moderate RV hypokinesis. Moderate to severe eccentric MR. Moderate TR with PA pressure 40 to 45 mmHg.
Echo 07/31/2018: EF 55 to 60%. Mild concentric LVH. Mild MR, mild TR, PAP 15 to 20 mmHg
Plan:
Cardiogenic shock with multisystem organ dysfunction. New severe heart failure with volume overload, biventricular dysfunction, increased pulmonary pressures and moderate to severe mitral regurgitation. I once again today discussed degree of
illness with patient. On inotropic therapy he is feeling better and renal function/liver function have slightly improved. He is diuresing however given low blood pressure earlier today I held morning diuretic. Will resume at lower dose. Low
blood pressures earlier today now improved.
Both acute liver dysfunction and renal dysfunction noted. Chronic smoker with COPD. Alcohol use disorder.
-Initially he presented 07/25/2024 with acute shortness of breath. Acute hypoxic respiratory insufficiency initially arrived requiring BiPAP. Now on 6 L nasal cannula stable.
-Heart failure with reduced ejection fraction
-Given cardiogenic shock milrinone 0.3 mcg/kg/min was started 07/26/2024. Stable. Blood pressure acceptable. If blood pressure starts to decrease consider the addition of low-dose dobutamine 3 mcg/kg/min
-Diuresis as able, held a.m. 07/27/2024. Will resume later today at reduced dose 40 mg IV twice daily. Follow input/output and weights.
-Multisystem organ dysfunction, follow. Slightly improved.
-Cardiac catheterization both right heart cath and left heart cath as able when stabilized. Likely Sunday as long as renal function remains stable.
-Lactate improved with current treatment.
-Contribution from rapid atrial fibrillation continue to try to maintain sinus rhythm.
-Unclear if mitral regurgitation is a primary issue or secondary. Continue to follow.
-Guideline directed medical therapy for heart failure with reduced ejection fraction eventually when stabilized.
-COPD shortness of breath
--Longstanding history of tobacco abuse with abnormal PFTs in 2018 suggesting emphysema.
--Now on oral steroid taper and nebulizer.
Paroxysmal atrial fibrillation with rapid ventricular response, unknown duration now in sinus rhythm
--This is new diagnosis
--Avoid negative inotropic agents
--Continue heparin drip with eventual transition to oral anticoagulation
--On IV amiodarone. Switch to oral 200 mg 3 times daily.
-- QT interval is prolonged and likely multifactorial. Reassess EKG in the morning. Replete potassium. Magnesium is normal. Avoid other QT prolonging medication. Follow on amiodarone.
-MT likely on the basis of cardiogenic shock. Making urine. Continue to follow. Defer to primary service. Creatinine improving.
-Nonischemic troponin elevation peak so far 0.052. Suspect non-RI myocardial injury secondary to cardiogenic shock in the setting of reduced ejection fraction, atrial fibrillation with rapid ventricular response and acute heart failure exacerbation
-Shock liver likely with abnormal LFTs; suspect multifactorial secondary to hepatic congestion from acute heart failure, shock liver as well as daily alcohol use. Defer to primary service. Improving.
Daily alcohol use: Feels a little shaky initiate [facility] protocol
Discussed with traffic incident management manager and nursing. Patient understands the plan and the critical nature of his illness.
32 minutes total critical care time.
HPI 07/25/2024:
Patient is a 68-year-old male with past medical history significant for hypertension, hyperlipidemia, COPD with longstanding tobacco abuse and daily alcohol use who presents to emergency department 07/25/2024 with progressively worsening shortness of
breath. Patient and his family report his longtime smoker who has been weaning off cigarettes for approximately 6 months and recently stopped smoking 2 months ago. Patient has had ongoing dyspnea on exertion for at least 6 to 9 months. He is
rather sedentary and does little activity around the house or outside. Over the last 3-4 weeks shortness of breath has gotten worse and he has noted an ongoing cough. He saw primary care physician 07/21/2024 who ordered a chest x-ray which was
concerning for pneumonia and emphysema and he was started on azithromycin, Augmentin, Albuterol and prednisone. In the last 2 days patient developed chest heaviness associated with worsening dyspnea and rapid heartbeat prompting him to seek
emergency medical attention. Patient reports he has had poor appetite over the last 3 days and little oral intake.
In emergency department patient was found to be in atrial fibrillation with rapid ventricular response. Chest x-ray showed diffusely increased interstitial markings bilaterally with more focal opacities within the right midlung and left lung base.
proBNP elevated at 21,000. WBC 19.7, BUN/creatinine 45/1.7. Troponin initially 0.041. Patient was negative for COVID. Patient was given IV steroids, IV Lasix 60 mg and placed on IV diltiazem drip in emergency department. At time of this
evaluation patient is on 15 mL/h of diltiazem and heart rates remain poorly controlled. He continues to have shortness of breath and chest heaviness
Progress Note - Sporting Goods Salesperson
Subjective
Date of Service: July 27, 2024
Feeling a bit better today. Denies chest pain and palpitations.
Objective
Labs:
07/27/24 03:40
Labs
Hgb 12.9 g/dL (13.0-18.0) L 07/27/24 03:40
Hct 34.7 % (39.0-52.0) L 07/27/24 03:40
Plt Count 177 10^3/uL (130-400) 07/27/24 03:40
PT Cancelled 07/26/24 03:48
INR Cancelled 07/26/24 03:48
APTT 181.6 Sec (23.4-35.0) H* 07/27/24 03:40
Sodium 133 mmol/L (135-145) L 07/27/24 03:40
Potassium 3.3 mmol/L (3.5-5.1) L 07/27/24 03:40
BUN 67 mg/dl (9-20) H 07/27/24 03:40
Creatinine 2.0 mg/dL (0.7-1.3) H 07/27/24 03:40
Glucose 169 mg/dl (70-99) H 07/27/24 03:40
Troponins
07/25/24 07/25/24 07/25/24
05:46 11:28 18:15
Troponin I 0.041 H* 0.046 H* 0.052 H*
07/25/24
23:03
Troponin I Cancelled
Vital Signs and I&O:
Vital Signs
Temp Pulse Resp BP Pulse Ox
98.6 F 75 17 81/62 94
07/27/24 03:59 07/27/24 07:56 07/27/24 07:56 07/27/24 06:00 07/27/24 07:56
Vital Signs
Temp Pulse Resp BP Pulse Ox
98.6 F 75 17 81/62 94
07/27/24 03:59 07/27/24 07:56 07/27/24 07:56 07/27/24 06:00 07/27/24 07:56
Intake & Output
07/25/24 07/26/24 07/27/24 07/28/24
06:59 06:59 06:59 06:59
Intake Total 833 / 833 1573.4 / 1606.8 100.2 / 100.2
Output Total 375 / 375 1050 / 1300 400 / 400
Balance 458 / 458 523.4 / 306.8 -299.8 / -299.8
Physical Exam
Physical Exam
General: Ill-appearing man
Neck: JVD difficult to assess
Heart: N distant heart sounds RRR,
Lungs: Coarse breath sounds decreased at the bases
Extremities: No clubbing, cyanosis or edema bilaterally.
Neuro: Grossly nonfocal, awake, alert and oriented x3.
[2024-07-27] MEDS: KCL ELIXIR 40 MEQ PO (10:43)
[2024-07-27] MEDS: PACERONE 200 MG PO ×3 (10:48→21:12)
[2024-07-27] MEDS: HEPARIN 25000 UNITS/250 ML IV (10:50)
--- NOTE | 2024-07-27 11:08 | PTCARENOTE ---
Pt remains awake and alert. offers no c/o pain. tolerated breakfast, AM hygiene. AM lasix held. MSAS and heparin protocols continue. HR NS with BBB. No change in assessment. CB in reach.
[2024-07-27 11:50] LABS: APTT 119.7 Sec (23.4-35.0)
--- NOTE | 2024-07-27 13:00 | CM ---
CM following re: d/c planning.
Pt remains in ICU.
CM completed IA.
Pt reports he resides in the home with , daughter, and son in law.
He reports he is independent with mobility and ADLs.
No DME (aside from neb) or VN.
PCP is Dr. Green and pharmacy [facility].
Pt drives,
Pt acknowledges etoh use, but denies abuse, nor is he interested in any treatment.
CM remains available if d/c needs arise.
--- NOTE | 2024-07-27 14:18 | W.PN.HOSP.TC ---
Today's Communication/Plan
-
Switch to p.o. amiodarone
Continue IV heparin
Continue IV diuresis
Continue milrinone
Stop standing Xopenex, ipratropium�continue as needed
Add Spiriva
Steroid taper, course per pulmonology/compensation intern
Monitor LFTs, Renal Function - plan for possible left and right heart cath Sunday as long as renal function stable/improves
MSAS protocol
Assessment / Plan
Assessment / Plan
Physical Exam
General: 4L NC
HEENT: NormoCephalic
Respiratory: Other (Diminished, 4 L)
Cardiac: Irregular Rhythm; JVP
GI: Non Tender
Musculoskeletal: No Clubbing
Skin: Warm and Dry
Neuro: Awake, Alert, Oriented and AO x 3
Hematologic/Lymphatic: No Lymphadenopathy
Psych: Calm
68-year-old male presenting for shortness of breath found to have atrial fibrillation with RVR, most likely Cardiogenic Shock +/- COPD exacerbation
PLAN:
#Acute hypoxic respiratory failure
� Most likely secondary to Cardiogenic Shock and atrial fibrillation, +/- COPD exacerbation
� Treat COPD, CHF, A-fib
� Wean O2 as tolerated, was on noninvasive ventilation, weaned down to 6 L
�May benefit from NIV, as needed
� Doubt any pneumonia, monitor fever curve, blood pressure
� Low threshold to initiate antibiotics if needed
#Cardiogenic shock with multisystem organ failure
#Acute HFrEF
#Lactic acidosis
�EF 10% with global hypokinesis, moderate to severe eccentric MR
� Continue IV diuresis as tolerated
� Maintain maps greater than 65
� Continue milrinone
� Cardiac arrhythmia precludes norepinephrine, epinephrine use at this time
� Should consider cardiac cath once stabilized, monitoring serum creatinine; tentative Sunday as long as renal function remains stable, improved
� Transfer over to ICU
�Trend lactate until under 2
#Atrial fibrillation with RVR, paroxysmal
� Stop diltiazem drip due to heart failure
� Can switch IV amiodarone to oral
� heparin drip
#COPD exacerbation
� Suspect exacerbation due to bronchospasm from CHF, atrial fibrillation
� Can continue prednisone, switch to taper
�Switch to Xopenex, make as needed
� Add Spiriva
#Elevate troponin
� Mostly nonischemic myocardial injury secondary to seizure exacerbation, shock, atrial fibrillation
� No chest pain
� Trend to peak
� Will need right/left heart cath
#Leukocytosis
� Mostly secondary steroids, acute stress
Monitor fever curve
#Metabolic acidosis
� Mostly secondary MT
� Continue to monitor with resuscitation
#MT�most likely cardiorenal, cardiogenic shock
� Still urinating, monitor I's and O's, urine output
� Continue to monitor with diuresis, shock treatment
#Transaminitis
� Most likely congestive hepatopathy, shock liver
� Improving
� No right upper quadrant tenderness
-� Alk phos normal, bili mildly elevated, low clinical suspicion of gallbladder pathology
-monitor and engage GI if worsening
#Hypokalemia
Monitor and replete
#Hyponatremia
# Mild�continue to monitor
#Alcohol abuse
� CIWA protocol
- ativan prn
# Abdominal aortic aneurysm measuring 3.7 cm in diameter.
#DVT ppx
-heparin ggt
Total time spent on today's encounter was 51 minutes which included time spent in counseling the patient/family regarding diagnosis and treatment plan as listed above, goals of care, and symptom management. Case was discussed with nursing staff,
specialists, and care coordinators/case management. All labs and imaging personally reviewed by me. Remainder the time spent in detailed review of previous records, lab data, imaging, and other medical provider documentation.
Anticipated Discharge: > 48 hours
Subjective/Interval History
-
Date of Service: July 27, 2024
Converted to sinus rhythm yesterday evening
Objective Data
-
Labs:
Laboratory Results
07/27/24 07/27/24 07/27/24
03:40 11:31 15:00
WBC 16.1 H
Hgb 12.9 L
Hct 34.7 L
Plt Count 177
APTT 181.6 H* 119.7 H
Sodium 133 L Pending
Potassium 3.3 L Pending
Chloride 96 L Pending
Carbon Dioxide 23 Pending
BUN 67 H Pending
Creatinine 2.0 H Pending
Glucose 169 H Pending
Calcium 8.1 L Pending
Total Bilirubin 0.9
AST 1073 H*
ALT 1368 H*
Alkaline Phosphatase 106
07/27/24
18:00
WBC
Hgb
Hct
Plt Count
APTT Pending
Sodium
Potassium
Chloride
Carbon Dioxide
BUN
Creatinine
Glucose
Calcium
Total Bilirubin
AST
ALT
Alkaline Phosphatase
Vital Signs:
Vital Signs
Temp Pulse Resp BP Pulse Ox
97.8 F 90 25 107/76 91
07/27/24 11:05 07/27/24 13:00 07/27/24 13:00 07/27/24 13:00 07/27/24 12:30
I&O
07/26/24 07/27/24 07/28/24
06:59 06:59 06:59
Intake Total 833 / 833 1573.4 / 1606.8 591.8 / 591.8
Output Total 375 / 375 1050 / 1300 680 / 680
Balance 458 / 458 523.4 / 306.8 -88.2 / -88.2
Review of Systems
-
History Source: Patient
All other systems: Not reviewed unless documented
Data Reviewed
-
Diagnostic Radiology: Image personally visualized and interpreted and Report Reviewed by me
CT Scan: Image personally visualized and interpreted
Ultrasound: Image personally visualized and interpreted
Labs: Labs Reviewed by me
[2024-07-27] MEDS: ATIVAN 1 MG PO (14:37)
--- NOTE | 2024-07-27 14:41 | PTCARENOTE ---
PO ativan administered per protocol
[2024-07-27] MEDS: SPIRIVA RESPIMAT 2.5 MCG INH (15:43)
[2024-07-27 16:03] LABS: Blood Urea Nitrogen 58 mg/dl (9-20); Carbon Dioxide 23 mmol/L (22-30); Chloride 97 mmol/L (98-107); Estimated Creatinine Clearance 42 ml/min; Glucose 166 mg/dl (70-99); Sodium 134 mmol/L (135-145); eGFR 43.37
[2024-07-27] MEDS: LASIX 40 MG IV (16:09)
[2024-07-27 16:12] LABS: Calcium 9.1 mg/dl (8.4-10.2); Magnesium 2.6 mg/dl (1.6-2.3); Potassium 4.6 mmol/L (3.5-5.1)
[2024-07-27 18:01] LABS: APTT 101.7 Sec (23.4-35.0)
--- NOTE | 2024-07-27 18:15 | PTCARENOTE ---
Ptt resulted 101.7. No change in heparin gtt per protocol. continues with Milrinone gtt and MSAS protocol. No change in assessment. Family at bedside. CB in reach.
--- NOTE | 2024-07-27 19:28 | PTCARENOTE ---
Received pt via handoff. Pt AAOx3, ALBRIGHT. NSR, palpable pulses on all extremities w/ no edema. Pt 96% on 6L, lung sounds diminished throughout. Hypoactive bowel sounds in all 4Q. Pt using urinal, clear yellow urine. Skin intact with scattered
ecchymosis. Right double lumen PICC placed. Milrinone and heparin gtts running see flowsheet. Call mtz at bedside.
--- NOTE | 2024-07-27 23:48 | PTCARENOTE ---
All systems reassessed, ptt drawn, gtt running see flowsheet, call mtz at bedside.
[2024-07-28] VITALS (48 sets, daily range): BP systolic 84–121; BP diastolic 38–97; PULSE 78–80; O2SAT 93; BMI 22.2
[2024-07-28 00:10] LABS: APTT 102.8 Sec (23.4-35.0)
[2024-07-28 04:00] LABS: Hematocrit 34.9 % (39.0-52.0); Hemoglobin 12.6 g/dL (13.0-18.0); Mean Corp Hgb Conc. 36.1 g/dL (33.0-37.0); Mean Corpuscular Hgb 36.3 pg (27.0-31.0); Mean Corpuscular Volume 100.6 fL (80.0-94.0); Platelet Count 175 10^3/uL (130-400); Red Blood Cell Count 3.47 10^6/uL (4.70-6.10); Red Cell Dist. Width 13.3 % (11.5-14.5)
[2024-07-28 04:06] LABS: APTT 92.4 Sec (23.4-35.0)
[2024-07-28] MEDS: PRIMACOR 20 MG 100 IV ×2 (04:31→20:12)
[2024-07-28 04:47] LABS: AST (SGOT) 370 U/L (17-59); Albumin 3.3 g/dl (3.5-5.0); Alkaline Phosphatase 113 U/L (38-126); Blood Urea Nitrogen 47 mg/dl (9-20); Calcium 8.3 mg/dl (8.4-10.2); Carbon Dioxide 25 mmol/L (22-30); Chloride 100 mmol/L (98-107); Estimated Creatinine Clearance 50 ml/min; Glucose 143 mg/dl (70-99); Potassium 4.1 mmol/L (3.5-5.1); Sodium 135 mmol/L (135-145); Total Bilirubin 0.9 mg/dl (0.2-1.3); Total Protein 5.6 g/dl (6.3-8.2); eGFR 54.75
[2024-07-28 05:07] LABS: ALT (SGPT) 1012 U/L (0-50)
--- NOTE | 2024-07-28 05:12 | PTCARENOTE ---
All systems reassessed, labs drawn. Call mtz at bedside.
--- NOTE | 2024-07-28 07:02 | RESPNOTE ---
PT refused the BIPAP for the night , he only wanted the nasal O2.
--- NOTE | 2024-07-28 07:30 | PTCARENOTE ---
Received patient from maintenance supervisor 2nd shift. patient is awake, pleasant, oriented to time, place situation. unsure of the day, but per patient and family, he never knows what day it is. He is still having tremors, MSAS 4 due to tremors and HR. He is on
6L nasal cannula, did not use bipap last night. slight inspiratory wheeze on right side. coarse non productive cough, 93% oxygen saturation. Patient is sinus rhythm on monitor. AMIO gtt is off, oral due this morning. On milrinone gtt and
heparin gtt as ordered. no edema. Patient is NPO for cath this morning, using urinal appropriately, all meds to be given except for lasix. skin is intact, some scattered ecchymosis. Milrinone infusing into right double lumen picc. will review
all orders. call mtz within reach, patient is able to make needs known.
[2024-07-28] MEDS: CRESTOR 20 MG PO (07:39)
[2024-07-28] MEDS: VITAMIN B1 100 MG PO (07:39)
[2024-07-28] MEDS: DELTASONE 40 MG PO (07:39)
[2024-07-28] MEDS: PACERONE 200 MG PO ×2 (07:39→15:08)
[2024-07-28] MEDS: FOLVITE 1 MG PO (07:40)
[2024-07-28] MEDS: SPIRIVA RESPIMAT 2.5 MCG 2 PUFF INH (07:55)
--- NOTE | 2024-07-28 08:04 | W.PN.INTV ---
Today's Communication / Plan
Recommendations
Continue milrinone per cardiology + monitor for arrhythmias
Start ASA; hold statin given high LFTs
PO amio
Maintain MAP>65
Trend sCr + BNP
Prednisone x 5 days
Spiriva with prn xopenex/atrovent
NPO for LHC/RHC tomorrow
MSAS
Outpatient pulmonary follow up for PFTs and discuss LDCT chest for lung cancer screening
Patient is stable for downgrade out of ICU to IVU. Given his reported history of COPD with acute exacerbation, acute respiratory failure on supplemental oxygen, with recent need for NIV, pulmonary service will continue to briefly follow along.
Assessment
-
68-year-old man with history of tobacco abuse, alcohol abuse, initially admitted with shortness of breath, hypoxemia. Treated for COPD exacerbation, found to be in heart failure. Subsequently developed rapid atrial fibrillation-acute kidney
injury, liver injury. Clinical picture consistent with cardiogenic shock-he was transferred to the critical care unit 07/26/2024 for inotrope support.
Impression:
Cardiogenic shock on milrinone
Systolic cardiomyopathy, probably mediated by atrial fibrillation and alcohol abuse
Cannot rule out coronary artery disease.
Echocardiogram 07/25/2024: Ejection fraction 10-15%. Stage II diastolic dysfunction. Global hypokinesis. Moderate RV hypokinesis. Moderate to severe MR. Moderate TR. Systolic pulmonary pressures of 40 to 45 mmHg. Decreased LVEF compared to
prior in 2018 when it was normal.
Chest x-ray: 07/26/2024: Mild pulmonary vascular congestion. Bilateral pleural effusions
Atrial fibrillation with rapid ventricular response - now in NSR
Increased troponin: Likely due to demand ischemia with type II PR (peaked at 0.052 on 07/25/24)
Acute kidney injury-cardiorenal syndrome
Anion gap metabolic acidosis-secondary to shock - acidosis now resolved
Shock liver - improving
COPD with suspected acute exacerbation (mild)
Leukocytosis possibly reactive
Conditions present prior admission:
COPD
Former smoker
Alcohol abuse
Assessment and plan:
Although he remains on milrinone, he is improving both objectively and subjectively.
He was transferred to the ICU on 07/26/2024 due to requiring noninvasive mechanical ventilation.
He is now stable on supplemental oxygen and no longer requires PAP
-
Continue with milrinone as per cardiology with plans for left heart catheterization tomorrow (07/29/2024); would favor also doing RHC as well
NPO past midnight
Continue IV lasix 40mg BID --> trend UOP, strict I/O and trend sCr
PICC line in place
Maintain MAP>65
Trend LFTs --> hold statin for now
Lactate has normalized on 07/26, so no longer need to continue trending
-
Cardizem has been discontinued
Continue PO amiodarone; hold if HR<50 or if MAP<65
Heparin drip-follow PTT
Continue with goal-directed therapy for heart failure per cardiology
Start ASA
-
Hypokalemia: Keep K>4, Mg>2
-
From the COPD perspective, not bronchospastic as of 07/28/2024
Patient states that he stopped smoking 3 months ago.
Patient has a CT of the chest from 05/02/2018: Reviewed - showed at that time moderate emphysema. Small 3 mm lung nodule on the left mainstem bronchus, likely mucous No other significant abnormalities. Patient is due for low-dose radiation CT scan
for lung cancer screening. He is aware - this can be addressed in the outpatient setting
On Anoro in outpx, recently started-no PFT available. He has not seen pulmonary.
Continue oxygen implementation currently 6 L nasal cannula with pulse ox 96%. Not previously on supplemental oxygen.
ABG 07/26/2024: 7.47/24/52
Okay to continue prednisone course - start at 40mg daily x 5 days then stop
Avoid beta agonist-atrial fibrillation
Continue prn Xopenex/Atrovent and spiriva
-
He needed BiPAP due to respiratory distress - he is now breathing comfortably
- Can DC BiPAP
-
MSAS protocol
Currently he is calm and cooperative
Folic and thiamine
No need for precedex at this time
Can consider libirum taper if need better control of withdrawal symptoms as long as not severe
-
Continue cardiac diet
Aspiration precautions
Patient is stable for downgrade out of ICU to IVU. Given his reported history of COPD with acute exacerbation, acute respiratory failure on supplemental oxygen, with recent need for NIV, pulmonary service will continue to briefly follow along.
Outpatient follow-up will be arranged.
-
Total time spent today was 77 minutes for this encounter. Time includes reviewing laboratory test/imaging results, reviewing pertinent medical records, obtaining and reviewing medical history, performing an appropriate exam, ordering medications,
tests and procedures. Time also includes documentation of this encounter, coordinating patient care and communicating with other healthcare professionals. Total time does not include separately billed tests performed on this date of service.
Subjective Dataa
Subjective Data
Date of Service:
Date of Service: July 28, 2024
Chief Complaint: Vibration Analyst Follow Up (Cardiogenic shock)
Subjective:
Pt seen and evaluated this AM. Patient's mmzibub-[id number], Unruly, at bedside � all questions were answered . Pt's HR 85, BP 121/97. Still at milrinone gtt at 0.3mcg/kg/min, and heparin gtt. Saturating 95% on 6L/min. MSAS this AM is 4. He is not
confused, and has minimal complaints. He has a mild cough with clear phlegm production but it is not bothersome. He says he feels a lot better overall compared to when he first was admitted. He currently denies chest pain, MORALES, abdominal pain,
nausea, vomiting, diarrhea, fevers or
Review of Systems
General: Other (Negative unless mentioned above)
Objective Data
Data Reviewed
Vital Signs / I&O / Oxygen:
Vital Signs
Temp Pulse Resp BP Pulse Ox
98.2 F 80 24 93/72 94
07/28/24 07:37 07/28/24 08:02 07/28/24 08:02 07/28/24 07:39 07/28/24 08:02
Intake and Output
07/27/24 07/28/24 07/29/24
06:59 06:59 06:59
Intake Total 1573.4 / 1606.8 1802.6 / 1818.3 31.4 / 31.4
Output Total 1050 / 1300 2405 / 2405 300 / 300
Balance 523.4 / 306.8 -602.4 / -586.7 -268.6 / -268.6
SaO2 94
Nasal Cannula flow liters per 6
minute
Physical Exam
General: Respiratory Distress (negative), Comfortable, Chills (negative) and Sweats (negative)
HEENT: Normocephalic and Anicteric
Cardiovascular: S1-S2 and Peripheral Edema (negative)
Respiratory: Wheeze (negative), Crackles (bibasilar), Rhonchi (negative) and Non-Labored Respirations
GI: Soft, Non Distended, Non Tender and Normal Bowel Sounds
Neurology: AO x 3 and Tremors (negative)
Skin: Warm, Dry, Cyanosis (negative) and Jaundice (negative)
Labs/Micro/Reports
Lab Data
07/28/24 03:13
07/28/24 03:13
Laboratory Results
07/27/24 07/27/24 07/27/24
17:27 23:42
APTT 119.7 H 101.7 H 102.8 H
07/28/24
03:13
APTT 92.4 H
Microbiology
07/25/24 11:28 Nose Nasal Screen MRSA (PCR) - Final
MRSA not detected - performed by PCR methodology.
[2024-07-28] MEDS: LASIX 40 MG IV ×2 (08:35→15:07)
--- NOTE | 2024-07-28 08:43 | PTCARENOTE ---
Per Dr. Espinal, patient will go to lab rep tomorrow due to creatinine. [facility] patient updated
--- NOTE | 2024-07-28 09:52 | W.PN.CARDCBS ---
Today's Communication / Plan
-
Remains hypoxic but renal function continues to improve on IV milrinone and Lasix and will continue
Plan on cardiac catheterization 07/29 depending on renal function
Continue amiodarone 200 mg p.o. 3 times daily and follow QT interval on ECG
Start aspirin
Impression / Plan
-
PCP: Antonieta Green
Manager Cardiac: Saw Dr. Sherice Perez once in 2017
Impression:
Cardiogenic shock with multisystem organ dysfunction
Heart failure with reduced ejection fraction acute proBNP 21,000; mildly dilated RV with moderate hypokinesis.
Prolonged QT
Moderate to severe MR
Pulmonary hypertension, likely secondary to heart failure
Acute hypoxic respiratory insufficiency
Atrial fibrillation with rapid ventricular response, spontaneously converted to sinus rhythm
MT
Abnormal LFTs�improving
Non-[place] myocardial ischemic troponin elevation
Hypertension
Hyperlipidemia
Tobacco abuse
COPD
Daily alcohol use
Bilateral hip replacements and shoulder replacement
Echo 07/25/2024: LVEF 10 to 15% with global hypokinesis. Mildly dilated right ventricle with moderate RV hypokinesis. Moderate to severe eccentric MR. Moderate TR with PA pressure 40 to 45 mmHg.
Echo 07/31/2018: EF 55 to 60%. Mild concentric LVH. Mild MR, mild TR, PAP 15 to 20 mmHg
Plan:
His renal function continues to improve with creatinine down to 1.4.
He remains hypoxic on 6 L
Will continue IV milrinone as well as IV Lasix
Will plan on cardiac catheterization possibly on 07/29/2024 depending on renal function
Will continue IV heparin until catheterization is performed
Start aspirin
Eventual change to Eliquis given atrial fibrillation which spontaneously converted to sinus rhythm
Continue amiodarone 200 mg 3 times daily which was started on 07/27/2024
Continue to follow QT interval on amiodarone
Liver function test continue to improve as well
Unclear if mitral regurgitation is a primary or secondary issue. Consider rechecking echocardiogram prior to discharge
Guideline directed medical therapy may be difficult given hypotension but will consider when off of milrinone
Continue therapy for COPD with steroids and nebulizer
Discussed with head knitting machine fixer, hospitalist and nursing. Patient understands the plan
Progress Note - Manager Cardiac
Subjective
Date of Service: July 28, 2024
No complaints
Objective
Labs:
07/28/24 03:13
07/28/24 03:13
Labs
Hgb 12.6 g/dL (13.0-18.0) L 07/28/24 03:13
Hct 34.9 % (39.0-52.0) L 07/28/24 03:13
Plt Count 175 10^3/uL (130-400) 07/28/24 03:13
PT Cancelled 07/26/24 03:48
INR Cancelled 07/26/24 03:48
APTT 92.4 Sec (23.4-35.0) H 07/28/24 03:13
Sodium 135 mmol/L (135-145) 07/28/24 03:13
Potassium 4.1 mmol/L (3.5-5.1) 07/28/24 03:13
BUN 47 mg/dl (9-20) H 07/28/24 03:13
Creatinine 1.4 mg/dL (0.7-1.3) H 07/28/24 03:13
Glucose 143 mg/dl (70-99) H 07/28/24 03:13
Troponins
07/25/24 07/25/24 07/25/24
11:28 18:15 23:03
Troponin I 0.046 H* 0.052 H* Cancelled
Vital Signs and I&O:
Vital Signs
Temp Pulse Resp BP Pulse Ox
98.2 F 82 22 108/77 95
07/28/24 07:37 07/28/24 09:23 07/28/24 09:23 07/28/24 09:23 07/28/24 08:30
Vital Signs
Temp Pulse Resp BP Pulse Ox
98.2 F 82 22 108/77 95
07/28/24 07:37 07/28/24 09:23 07/28/24 09:23 07/28/24 09:23 07/28/24 08:30
Intake & Output
07/26/24 07/27/24 07/28/24 07/29/24
06:59 06:59 06:59 06:59
Intake Total 833 / 833 1573.4 / 1606.8 1802.6 / 1818.3 287.1 / 287.1
Output Total 375 / 375 1050 / 1300 2405 / 2405 750 / 750
Balance 458 / 458 523.4 / 306.8 -602.4 / -586.7 -462.9 / -462.9
Physical Exam
Physical Exam
General: Well developed, well nourished in NAD.
Neck: Supple, no JVD, HJR, carotids +2 B/L, no bruits bilaterally.
Heart: Non displaced PMI, RRR, no murmurs, No S3, S4, no rubs.
Lungs: Scattered rhonchi
Extremities: No clubbing, cyanosis or edema bilaterally.
Neuro: Grossly nonfocal, awake, alert and oriented x3.
[2024-07-28] MEDS: ASPIRIN ENTERIC COATED 325 MG PO (11:24)
[2024-07-28] MEDS: HEPARIN 25000 UNITS/250 ML IV (11:38)
--- NOTE | 2024-07-28 12:00 | PTCARENOTE ---
No change in patient's assessment. Patient in chair at bedside, worked with PT.
[2024-07-28 12:26] LABS: Vitamin D, 25-OH*** 14.6 ng/mL (30-80)
[2024-07-28 12:59] LABS: Vitamin B12 > 1000 pg/ml (239-931)
--- NOTE | 2024-07-28 13:52 | W.PN.HOSP.TC ---
Today's Communication/Plan
-
Milrinone
heparin drip
Diuresis
Assessment / Plan
Assessment / Plan
68-year-old male presented with shortness of breath found to have A-fib.
CVS: S1-S2 irregular, systolic murmur at apex and right heart border
Chest: Rales bilaterally
Abdomen: Soft, NT / Bowel sounds present
Extremities: No edema
# Acute hypoxic respiratory failure
Likely secondary to cardiogenic shock and A-fib
Possible COPD exacerbation also entertained
Was on noninvasive ventilation-now weaned down to nasal cannula
# Cardiogenic shock with multisystem organ failure. Hold amlodipine
# Acute HFrEF-proBNP over 21,000
IV diuresis as tolerated
On milrinone
May need a cardiac catheterization once stable renal function
Planning for 07/29/2024
Echo 07/25/2024-EF 10 to 15% with global hypokinesis. Mildly dilated RV with moderate RV hypokinesis. Moderate to severe eccentric MR. Moderate TR with PA pressure 40 to 45 mmHg.
# Lactic acidosis-resolved
# Atrial fibrillation with RVR-new diagnosis
Diltiazem stopped
Continue heparin drip and amiodarone
# COPD exacerbation
On Anoro Ellipta as outpatient
Continue Xopenex, Spiriva
Steroids-prednisone
# Elevated troponin-nonischemic myocardial injury likely recent
Will need cardiac catheterization
Continue aspirin and hold statin
# Prolonged QTc
# Moderate to severe MR
# Pulmonary hypertension
# Leukocytosis
# Acute kidney injury-likely cardiorenal from cardiogenic shock
# Transaminitis likely secondary to hepatic congestion and shock liver. Hold statin. Watch with Amio.
# Hyperlipidemia-hold statin secondary elevated LFTs
# Hypokalemia-replace as needed
# Aycpvggatorg-sebbaxmbvegm-tkoydqrs diuresis as possible
# Alcohol abuse- MSAS protocol, thiamine
# Aortic lwcshhzr-jwfphwkvx-0.7 cm
# Depression-on Wellbutrin 300 mg daily as outpatient
# Ex Smoker
# DVT prophylaxis-heparin drip
# Full code
D/W RN at bed side
D/W Cards
D/W Tapping Machine Operator
seen earlier. Late documentation
Total Critical Care Time 32 minutes. I was immediately available to the patient and staff. I personally examined, reviewed labs, diagnostic images/reports, interpretations, treatment plans, discussed patient care with other providers and ,
entered orders as appropriate and documented the medical record.
Part of this note was created using voice recognition system. Occasional wrong word or��sound alike� substitutions may have inadvertently occurred due to the inherent limitations of voice recognition software. If noted kindly bring it to my
attention for correction.
Anticipated Discharge: > 48 hours
Subjective/Interval History
-
Date of Service: July 28, 2024
Objective Data
-
Labs:
Laboratory Results
07/28/24
03:13
WBC 16.0 H
Hgb 12.6 L
Hct 34.9 L
Plt Count 175
APTT 92.4 H
Sodium 135
Potassium 4.1
Chloride 100
Carbon Dioxide 25
BUN 47 H
Creatinine 1.4 H
Glucose 143 H
Calcium 8.3 L
Total Bilirubin 0.9
AST 370 H
ALT 1012 H*
Alkaline Phosphatase 113
Vital Signs:
Vital Signs
Temp Pulse Resp BP Pulse Ox
98 F 69 17 98/70 95
07/28/24 11:20 07/28/24 11:00 07/28/24 11:00 07/28/24 11:00 07/28/24 11:00
I&O
07/27/24 07/28/24 07/29/24
06:59 06:59 06:59
Intake Total 1573.4 / 1606.8 1802.6 / 1818.3 438.5 / 438.5
Output Total 1050 / 1300 2405 / 2405 1550 / 1550
Balance 523.4 / 306.8 -602.4 / -586.7 -1111.5 / -1111.5
[2024-07-28] MEDS: DRISDOL (VITAMIN D2) 50000 UNITS PO (14:20)
--- NOTE | 2024-07-28 14:58 | CM ---
CM following re: discharge planning.
Reviewed pt's chart, met with pt.
Pt reports he lives with spouse and a son with his family in a 2[place], has 2 supportive sons and a stepson. Pt described himself as independent in all areas [employer]. Pt reports he has a cane and a walker at them and uses them as needed.
PT and OT evaluations noted - home PT/OT recommended. Pt is aware, expressed his agreement. A list of VN vendors provided. pt preferred [facility].
Pt admitted to significant h/o alcohol abuse, has been drinking for years, currently drinking 5-6 shots of vodka daily. Pt reports he drinks with his but she drinks less then he does. Pt expressed no desire in inpatient or outpatient D&A
related treatment, pt stated he has many friends that are sober for years and he will get a good experience from them. In the beginning, pt declined meeting with [facility] and as interview progresses pt expressed his agreement to meet with [facility] team.
Pt stated he lost his siblings due to their drinking habits and pt stated 'i want to live'. A referral to [facility] made, spoke to JHON Villatoro and he will meet with the pt tomorrow.
D/C plan: home with [facility] and [facility] to follow.
CM will follow with discharge plan updates as hospitalization progresses
[2024-07-28] MEDS: LOPRESSOR 5 MG IV (17:07)
[2024-07-28] MEDS: ATIVAN 1 MG IV (17:21)
[2024-07-28] MEDS: ProAmatine 10 MG PO (17:56)
[2024-07-28] MEDS: CORDARONE 518 MG IV (17:56)
[2024-07-28] MEDS: CORDARONE 103 MG IV (17:56)
--- NOTE | 2024-07-28 18:34 | PTCARENOTE ---
Addendum entered by Jade Heart RN 07/28/24 18:40:
Did give Ativan per MSAS for possible withdrawal symptoms with HR. MSAS now at q2 hours.
Original Note:
Patient back into afib rhythm 150s-160s. Asymptomatic, did not feel as though his heart was racing. Dr. Hernandez at bedside. Gave metoprolol, gave midodrine, started amio gtt bolus/drip. Patient back in sinus rhythm at 1820.
--- NOTE | 2024-07-28 20:30 | PTCARENOTE ---
conduit bender, pt aaox3, MSAS continues, SR HR 60s, LA IV/RUE PICC WNL- Milrinone, Amio, Heparin gtt infusing per work list. Sat 94% on 4LNC. POC discussed, call mtz w/patient, bed alarm on.
[2024-07-29] VITALS (40 sets, daily range): BP systolic 88–108; BP diastolic 57–82; PULSE 60; BMI 22.0
--- NOTE | 2024-07-29 00:16 | PTCARENOTE ---
vss, reported called to IVU for transfer.
--- NOTE | 2024-07-29 01:57 | PTCARENOTE ---
Received pt from ICU,report from Aide THRASHER,pt tolerated transfer well.Pt asking about pending cardiac cath.NPO at this time.Physical assessment preformed,pt turns without difficulty,slight sob,pt on 4lnc.Amiodarone gtt, Milrinone gtt and Heparin gtt
maintained.VS stable,SR court monitor.Sleeping after assessment close observation ongoing throughout the night.
--- NOTE | 2024-07-29 02:17 | PTCARENOTE ---
Pt s bp 89/70 map of 78,88/62 map of 78.SR 60s,O2 sat 94% on 4lnc,resp rate 14,pt comfortable.This Rn notified Ed PA in CVICU,regarding numbers,informed him of Amiodarone gtt and Milrinone gtt,we are to watch patient closely at this time.
[2024-07-29 05:04] LABS: Hematocrit 37.3 % (39.0-52.0); Hemoglobin 13.4 g/dL (13.0-18.0); Mean Corp Hgb Conc. 35.9 g/dL (33.0-37.0); Mean Corpuscular Hgb 36.5 pg (27.0-31.0); Mean Corpuscular Volume 101.6 fL (80.0-94.0); Mean Platelet Volume 10.9 fL (7.4-10.4); Platelet Count 178 10^3/uL (130-400); Red Blood Cell Count 3.67 10^6/uL (4.70-6.10); White Blood Cell Count 17.3 10^3/uL (4.8-10.8)
[2024-07-29 05:13] LABS: APTT 109.8 Sec (23.4-35.0)
[2024-07-29 05:32] LABS: NT-proBNP 9540 pg/ml
[2024-07-29 05:35] LABS: AST (SGOT) 346 U/L (17-59); Albumin 3.3 g/dl (3.5-5.0); Alkaline Phosphatase 122 U/L (38-126); Blood Urea Nitrogen 44 mg/dl (9-20); Calcium 8.6 mg/dl (8.4-10.2); Carbon Dioxide 29 mmol/L (22-30); Chloride 96 mmol/L (98-107); Estimated Creatinine Clearance 50 ml/min; Glucose 107 mg/dl (70-99); Magnesium 2.2 mg/dl (1.6-2.3); Phosphorus 3.2 mg/dl (2.5-4.5); Potassium 4.1 mmol/L (3.5-5.1); Sodium 133 mmol/L (135-145); Total Protein 5.5 g/dl (6.3-8.2); eGFR 54.75
[2024-07-29 05:41] LABS: ALT (SGPT) 871 U/L (0-50)
[2024-07-29] MEDS: LASIX 40 MG IV (07:34)
[2024-07-29] MEDS: FLUSH (NSS) 1 FLUSH IV (07:37)
[2024-07-29] MEDS: VITAMIN B1 100 MG PO ×2 (07:39→20:30)
[2024-07-29] MEDS: ASPIR LOW (ENTERIC COATED) 81 MG PO (07:39)
[2024-07-29] MEDS: FOLVITE 1 MG PO (07:39)
[2024-07-29] MEDS: SPIRIVA RESPIMAT 2.5 MCG 2 PUFF INH (07:40)
[2024-07-29] MEDS: DELTASONE 40 MG PO (07:40)
[2024-07-29] MEDS: VITAMIN D3 (cholecalciferol) 25 MCG PO (07:42)
--- NOTE | 2024-07-29 09:30 | W.PN.PUL.V3 ---
Today's Communication / Plan
-
Wean oxygen
Prednisone 40 mg with slow taper
Nebulizers if needed
Diuresis
Potential cardiac catheterization
Outpatient pulmonary follow-up
Assessment
-
68-year-old man with history of tobacco abuse, alcohol abuse, initially admitted with shortness of breath, hypoxemia. Treated for COPD exacerbation, found to be in heart failure. Subsequently developed rapid atrial fibrillation-acute kidney
injury, liver injury. Clinical picture consistent with cardiogenic shock-he was transferred to the critical care unit 07/26/2024 for inotrope support.
Impression:
Cardiogenic shock on milrinone
Systolic cardiomyopathy, probably mediated by atrial fibrillation and alcohol abuse
Cannot rule out coronary artery disease.
Echocardiogram 07/25/2024: Ejection fraction 10-15%. Stage II diastolic dysfunction. Global hypokinesis. Moderate RV hypokinesis. Moderate to severe MR. Moderate TR. Systolic pulmonary pressures of 40 to 45 mmHg. Decreased LVEF compared to
prior in 2018 when it was normal.
Chest x-ray: 07/26/2024: Mild pulmonary vascular congestion. Bilateral pleural effusions
Atrial fibrillation with rapid ventricular response - now in NSR
Increased troponin: Likely due to demand ischemia with type II NV (peaked at 0.052 on 07/25/24)
Acute kidney injury-cardiorenal syndrome
Anion gap metabolic acidosis-secondary to shock - acidosis now resolved
Shock liver - improving
COPD with suspected acute exacerbation (mild)
Leukocytosis possibly reactive
Conditions present prior admission:
COPD
Former smoker-quit 04/2024
Alcohol abuse
Plan
Respiratory status slowly improving
Supplemental oxygen as needed
Avoiding beta agonist with his atrial fibrillation
Continue Xopenex/Atrovent as needed in addition to Spiriva-on Anoro as an outpatient
Prednisone 40 mg with taper
NIV/BiPAP as needed
Aspiration precautions
Incentive spirometry
Diuresis as tolerated
Monitor renal function, electrolytes, intake/output, lower extremity edema and weight
Replace electrolytes as needed
Cardiology following-correspondence reviewed
Milrinone per cardiology
Amiodarone 200 mg 3 times a day
Heparin drip
Aspirin initiated
Cardiac catheterization-left and right heart 07/29/2024-depending on renal function-serum creatinine currently 1.4
Alcohol withdrawal treatment protocol
Follow MSAS
Thiamine and folic acid continue
DVT prophylaxis-on heparin
Nutrition
Early mobilization
Outpatient pulmonary xhzoxx-qk-[id number], yearly low-dose lung cancer screening CT, ongoing smoking cessation counseling
Data:
Patient has a CT of the chest from 05/02/2018: - showed at that time moderate emphysema. Small 3 mm lung nodule on the left mainstem bronchus, likely mucous No other significant abnormalities.
Subjective Data
-
Date of Service:
Date of Service: July 29, 2024
Chief Complaint: Pulmonary Follow Up and Dyspnea Follow Up
Subjective:
Denies any shortness of breath at rest, chest pain, productive cough, pleurisy, abdominal pain
Review of Systems
General: Other (Per HPI)
Objective Data
Data Reviewed
Vital Signs / I&O:
Vital Signs
Temp Pulse Resp BP Pulse Ox
98.0 F 67 20 90/66 94
07/29/24 07:05 07/29/24 07:43 07/29/24 07:43 07/29/24 06:00 07/29/24 07:43
Intake and Output
07/28/24 07/29/24 07/30/24
06:59 06:59 06:59
Intake Total 1802.6 / 1818.3 1520.1 / 1520.1
Output Total 2405 / 2405 3025 / 3025
Balance -602.4 / -586.7 -1504.9 / -1504.9
SaO2: 94
Nasal Cannula flow liters per minute: 6
Physical Exam
General: Respiratory Distress (n) and Comfortable
HEENT: Normocephalic, Anicteric and Moist Mucous Membranes
Cardiovascular: Regular Rhythm and Murmur
Respiratory: Clear (Diminished breath sounds and prolonged expiratory time), Wheeze (n), Crackles (n), Rhonchi (n), Non-Labored Respirations, Accessory Resp Muscle Use (n) and Stridor (n)
GI: Soft, Non Distended and Non Tender
Neurology: Awake, Alert and No Motor Deficits
Skin: Warm, Good Color, Cyanosis (n) and Jaundice (n)
Labs/Micro/Reports
Lab Data
07/29/24 04:46
07/29/24 04:46
Laboratory Results
07/29/24
04:46
APTT 109.8 H
--- NOTE | 2024-07-29 10:42 | ITS.CL.CATH ---
Diagnostic Radiologist - Catheterization
Cardiac Catheterization
Procedure Report:
LEFT AND RIGHT HEART CATHETERIZATION
Date of Procedure: July 29, 2024
Referring: Dutch Espinal
PROCEDURES:
1. Left heart catheterization, coronary angiogram.
2. Right heart catheterization.
3. Ultrasound-guided access
INDICATION: Cardiomyopathy, LVEF of 10 to 15%, recent cardiogenic shock with MT and acute liver injury on milrinone
ACCESS:
1. Right radial artery, 6 Arabic sheath, under ultrasound guidance.
2. Right common femoral vein, 6 Arabic sheath, under ultrasound guidance using a micropuncture kit
HEMODYNAMICS : (mmHg)
RA (m) : 10
RV (s/d,m) : 45/8, 14
PA (s/d, m) : 46/19, 29
PCWP (m) : 25
PA saturation: 63.5% on 2 L of oxygen via nasal cannula
AO saturation: 90.8% on 2 L of oxygen via nasal cannula
RA saturation: 62.4% on 2 L of oxygen via nasal cannula
Cardiac Output : 3.91 L/min
Cardiac Index : 2.1 L/min/m-2
Systemic vascular resistance: 1310 dsc^(-5)
Pulmonary vascular resistance:1.02 amato unit
Heart rate: 64 beats minute
AO (s/d) : 92/57
LV (s/d) : 92/12
LVEDP : 28
CORONARY FINDINGS
DOMINANCE: Right
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 The left coronary artery extends into the LAD. There is 20% ostial stenosis
LEFT ANTERIOR DESCENDING: The left coronary artery is a medium to large caliber vessel which gives rise to 1 major diagonal branch as it courses to the anterior interventricular groove towards the apex. There is mild diffuse atherosclerotic plaque.
Ostial diagonal branch has eccentric 40% stenosis
CIRCUMFLEX: The left circumflex artery has an anomalous takeoff from the right coronary cusp just below the RCA takeoff and was selectively engaged using a 6 Arabic MPA-1 diagnostic catheter. There is 20 to 30% stenosis in the proximal portion.
OM1 has moderate degree of tortuosity with 30% stenosis diffusely in the proximal portion.
RIGHT CORONARY ARTERY: The right coronary artery is a medium to large caliber, dominant vessel which gives rise to the right posterior descending artery and the right posterolateral system. There is mild to moderate degree of tortuosity in the
proximal portion. There is mild diffuse atherosclerotic plaque.
SEDATION:39 minutes of procedural sedation was utilized. An independent medical laboratory manager was present to assist with and help manage the patient's level of consciousness and physiologic status.
RADIATION SUMMARY: Fluoro Time (min): 6.1, Dose (mGy): 363.09, DAP (Gy.cm2) : 26.5
Closure Device:
1. Vascular band over right radial artery, 10 cc of air.
2. Manual pressure was held over the right common femoral venous access site with successful hemostasis.
CONCLUSIONS
1. No obstructive coronary artery disease.
2. 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
3. Significantly elevated right and left-sided filling pressures with borderline cardiac output.
RECOMMENDATIONS
1. Optimization of goal-directed medical therapy for nonischemic cardiomyopathy with attempt to wean milrinone.
2. Continue aggressive IV diuresis.
3. Aggressive management of cardiovascular risk factors.
4. Wean radial band per protocol.
5. Eventual referral for outpatient cardiac rehab.
Copy to: Dutch Espinal
Nery Olivares MD, [facility], [facility]
--- NOTE | 2024-07-29 10:56 | W.PN.HOSP.TC ---
Today's Communication/Plan
-
Cath today
Assessment / Plan
Assessment / Plan
68-year-old male presented with shortness of breath found to have A-fib.
CVS: S1-S2 irregular, systolic murmur at apex and right heart border
Chest: Rales bilaterally
Abdomen: Soft, NT / Bowel sounds present
Extremities: No edema
Echo 07/25/2024-EF 10 to 15% with global hypokinesis. Mildly dilated RV with moderate RV hypokinesis. Moderate to severe eccentric MR. Moderate TR with PA pressure 40 to 45 mmHg.
# Acute hypoxic respiratory failure
Likely secondary to cardiogenic shock and A-fib
Possible COPD exacerbation also entertained
Was on noninvasive ventilation-now weaned down to nasal cannula
# Cardiogenic shock with multisystem organ failure. Shock resolved. Hold amlodipine
# Acute HFrEF-proBNP over 21,000
EF 10 to 15%
IV diuresis as tolerated
On milrinone
Cardiac catheterization planned today 07/29/24.
Will do Bicarb prophylaxis with elevated creat
# Lactic acidosis-resolved
# Atrial fibrillation with RVR-new diagnosis
Diltiazem stopped
Continue heparin drip and amiodarone
# COPD exacerbation
On Anoro Ellipta as outpatient
Continue Xopenex, Spiriva
Steroids-prednisone
# Elevated troponin-nonischemic myocardial injury likely recent
Will need cardiac catheterization
Continue aspirin and hold statin
# Prolonged QTc
# Moderate to severe MR
# Pulmonary hypertension
# Leukocytosis
# Acute kidney injury-likely cardiorenal from cardiogenic shock
# Transaminitis likely secondary to hepatic congestion and shock liver. Hold statin. Watch with Amio.
# Hyperlipidemia-hold statin secondary elevated LFTs
# Hypokalemia-replace as needed
# Mmcsrkmpcabs-afnpwsbxanaw-seonjeul diuresis as possible
# Alcohol abuse- MSAS protocol, thiamine
# Aortic fbbethyy-gwhkygahk-6.7 cm
# Depression-on Wellbutrin 300 mg daily as outpatient, restarted
# Ex Smoker
# DVT prophylaxis-heparin drip
# Full code
D/W RN
Spoke to son and updated.
Part of this note was created using voice recognition system. Occasional wrong word or��sound alike� substitutions may have inadvertently occurred due to the inherent limitations of voice recognition software. If noted kindly bring it to my
attention for correction.
Anticipated Discharge: > 48 hours
Subjective/Interval History
-
Date of Service: July 29, 2024
Objective Data
-
Labs:
Laboratory Results
07/29/24
04:46
WBC 17.3 H
Hgb 13.4
Hct 37.3 L
Plt Count 178
APTT 109.8 H
Sodium 133 L
Potassium 4.1
Chloride 96 L
Carbon Dioxide 29
BUN 44 H
Creatinine 1.4 H
Glucose 107 H
Calcium 8.6
Total Bilirubin 1.0
AST 346 H
ALT 871 H*
Alkaline Phosphatase 122
Vital Signs:
Vital Signs
Temp Pulse Resp BP Pulse Ox
98.0 F 68 20 99/73 94
07/29/24 07:05 07/29/24 08:00 07/29/24 07:43 07/29/24 09:00 07/29/24 09:30
I&O
07/28/24 07/29/24 07/30/24
06:59 06:59 06:59
Intake Total 1802.6 / 1818.3 1520.1 / 1520.1
Output Total 2405 / 2405 3025 / 3025 800 / 800
Balance -602.4 / -586.7 -1504.9 / -1504.9 -800 / -800
--- NOTE | 2024-07-29 11:55 | CM ---
Pricing on Eliquis is $47 for a 30 day supply through the patients prescription plan.
Pricing on Xarelto is $47 for a 30 day supply through the patients prescription plan.
--- NOTE | 2024-07-29 12:11 | CM ---
Chart reviewed. Patient is independent of ADLS lives with his , son and DIL, in a 2 STH, 2 LISSETTE, 0 DME but has a SPC and RW at home. Patient is current with [facility]. Plan is to resume services once medically stable for discharge. Plan is for
the patient to return home with [facility]. CM to follow
[2024-07-29] MEDS: PRIMACOR 20 MG 100 IV (12:25)
[2024-07-29] MEDS: WELLBUTRIN XL (24 hour extended release) 300 MG PO (12:29)
--- NOTE | 2024-07-29 13:48 | VNURNOTE ---
Home Health Liaison spoke with patient's spouse to discuss [facility] nurse/therapy, visits, schedule and homebound status. She is agreeable and understands that visits at home will be 2-3 x per week to assess and teach medical management. Spouse is
aware that [facility] will contact them for start of care in 1-2 days after discharge from .
[facility] referral completed in [facility].
[2024-07-29] MEDS: LASIX 80 MG IV (16:10)
[2024-07-29] MEDS: PACERONE 200 MG PO ×2 (17:15→21:09)
--- NOTE | 2024-07-29 18:00 | PTCARENOTE ---
Pt received this am with no c/o of any chest pain or sob. O2 decreased to 2LNC, sat 95%. Pt returned post cath with right rad band and right groin sites WNL. Pt encouraged to sit oob in the chair but pt preferred to stay in bed.
[2024-07-29] MEDS: MELATONIN 5 MG PO (21:08)
[2024-07-30] VITALS (12 sets, daily range): BP systolic 99–112; BP diastolic 70–80; PULSE 70–72; O2SAT 94; BMI 21.3
[2024-07-30 02:20] LABS: APTT 25.2 Sec (23.4-35.0)
[2024-07-30] MEDS: HEPARIN 25000 UNITS/250 ML IV (02:38)
[2024-07-30] MEDS: PRIMACOR 20 MG 100 IV ×2 (04:19→23:50)
[2024-07-30 04:42] LABS: Hematocrit 41.7 % (39.0-52.0); Hemoglobin 14.9 g/dL (13.0-18.0); Mean Corp Hgb Conc. 35.7 g/dL (33.0-37.0); Mean Corpuscular Hgb 36.2 pg (27.0-31.0); Mean Corpuscular Volume 101.2 fL (80.0-94.0); Mean Platelet Volume 11.1 fL (7.4-10.4); Platelet Count 165 10^3/uL (130-400); Red Blood Cell Count 4.12 10^6/uL (4.70-6.10); Red Cell Dist. Width 12.5 % (11.5-14.5); White Blood Cell Count 16.1 10^3/uL (4.8-10.8)
[2024-07-30 05:04] LABS: Calcium 8.8 mg/dl (8.4-10.2); Glucose 103 mg/dl (70-99); Magnesium 2.2 mg/dl (1.6-2.3); Potassium 3.7 mmol/L (3.5-5.1)
[2024-07-30 05:12] LABS: Blood Urea Nitrogen 44 mg/dl (9-20); Carbon Dioxide 27 mmol/L (22-30); Chloride 97 mmol/L (98-107); Estimated Creatinine Clearance 48 ml/min; Sodium 134 mmol/L (135-145); eGFR 54.75
[2024-07-30] MEDS: SPIRIVA RESPIMAT 2.5 MCG 2 PUFF INH (07:11)
--- NOTE | 2024-07-30 08:17 | W.PN.HOSP.TC ---
Today's Communication/Plan
-
diuresis
heparin gtt
replete K
appreciate cardiology
Assessment / Plan
Assessment / Plan
68-year-old male presented with shortness of breath found to have A-fib.
CVS: S1-S2 irregular, systolic murmur at apex and right heart border
Chest: Rales bilaterally
Abdomen: Soft, NT / Bowel sounds present
Extremities: No edema
Echo 07/25/2024-EF 10 to 15% with global hypokinesis. Mildly dilated RV with moderate RV hypokinesis. Moderate to severe eccentric MR. Moderate TR with PA pressure 40 to 45 mmHg.
Cardiac Cath 07/29/24
CONCLUSIONS
1. No obstructive coronary artery disease.
2. 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
3. Significantly elevated right and left-sided filling pressures with borderline cardiac output.
# Acute hypoxic respiratory failure
Likely secondary to cardiogenic shock in setting of A-fib
Possible COPD exacerbation also entertained - prednisone now stopped
Was on noninvasive ventilation-now weaned down to nasal cannula
# Cardiogenic shock with multisystem organ failure. Shock resolved. Hold amlodipine
# Acute HFrEF-proBNP over 21,000
# Moderate to severe MR
# Pulmonary hypertension
EF 10 to 15%
continue IV lasix
s/p cardiac cath on 07/29/24
s/p bicarb prophylaxis
appreciate Cardiology
# Lactic acidosis-resolved
# Atrial fibrillation with RVR-new diagnosis
Diltiazem stopped
Continue heparin drip and amiodarone
# COPD exacerbation
On Anoro Ellipta as outpatient
Continue Xopenex, Spiriva
Steroids-prednisone
# Elevated troponin-nonischemic myocardial injury likely recent
Continue aspirin and hold statin given transaminitis
# Prolonged QTc
# Leukocytosis
# Acute kidney injury-likely cardiorenal from cardiogenic shock
# Transaminitis likely secondary to hepatic congestion and shock liver. Hold statin. Watch with Amio.
-add on liver enzymes today
# Hyperlipidemia-hold statin secondary elevated LFTs
# Hypokalemia-replace as needed
# Srbcdymgdzri-ajiggwyvivcc-ytpshikc diuresis as possible
# Alcohol abuse- MSAS protocol, thiamine
# Aortic tbhbzowd-hzxzbfmou-6.7 cm
# Depression-on Wellbutrin 300 mg daily as outpatient, restarted
# Ex Smoker
# DVT prophylaxis-heparin drip
# Full code
D/W RN
Anticipated Discharge: > 48 hours
Subjective/Interval History
-
Date of Service: July 30, 2024
feeling better than when came in
Objective Data
-
Labs:
Laboratory Results
07/30/24 07/30/24 07/30/24
02:05 04:09 06:00
WBC 16.1 H
Hgb 14.9
Hct 41.7
Plt Count 165
APTT 25.2 Cancelled
Sodium 134 L
Potassium 3.7
Chloride 97 L
Carbon Dioxide 27
BUN 44 H
Creatinine 1.4 H
Glucose 103 H
Calcium 8.8
07/30/24
08:45
WBC
Hgb
Hct
Plt Count
APTT Pending
Sodium
Potassium
Chloride
Carbon Dioxide
BUN
Creatinine
Glucose
Calcium
Vital Signs:
Vital Signs
Temp Pulse Resp BP Pulse Ox
97.3 F 62 20 104/71 95
07/30/24 07:20 07/30/24 07:16 07/30/24 07:20 07/30/24 03:55 07/30/24 07:20
I&O
07/29/24 07/30/24 07/31/24
06:59 06:59 06:59
Intake Total 1520.1 / 1520.1 381 / 381
Output Total 3025 / 3025 3525 / 3525
Balance -1504.9 / -1504.9 -3144 / -3144
Review of Systems
-
History Source: Patient
All other systems: Reviewed and negative
Physical Exam
-
General: No Apparent Distress
HEENT: PERRLA
Respiratory: Decreased Breath Sounds
Cardiac: Regular Rhythm and S1/S2
GI: Soft and Nontender
Musculoskeletal: No Edema
Skin: Warm and Dry; Negative Rash
Neuro: AO x 3
Psych: Calm
Data Reviewed
-
Diagnostic Radiology: Report Reviewed by me
Labs: Labs Reviewed by me
[2024-07-30] MEDS: ASPIR LOW (ENTERIC COATED) 81 MG PO (08:48)
[2024-07-30] MEDS: VITAMIN B1 100 MG PO ×2 (08:48→20:18)
[2024-07-30] MEDS: KCL 40 MEQ PO (08:48)
[2024-07-30] MEDS: DELTASONE 40 MG PO (08:49)
[2024-07-30] MEDS: WELLBUTRIN XL (24 hour extended release) 300 MG PO (08:49)
[2024-07-30] MEDS: LASIX 80 MG IV ×2 (08:50→17:13)
[2024-07-30] MEDS: PACERONE 200 MG PO ×2 (08:50→20:18)
[2024-07-30] MEDS: VITAMIN D3 (cholecalciferol) 25 MCG PO (08:51)
[2024-07-30] MEDS: FOLVITE 1 MG PO (08:51)
--- NOTE | 2024-07-30 09:20 | W.PN.PUL.V3 ---
Today's Communication / Plan
-
Wean oxygen
Continue diuresis
Outpatient pulmonary follow-up
Pulmonary will sign off-please call with questions
Assessment
-
68-year-old man with history of tobacco abuse, alcohol abuse, initially admitted with shortness of breath, hypoxemia. Treated for COPD exacerbation, found to be in heart failure. Subsequently developed rapid atrial fibrillation-acute kidney
injury, liver injury. Clinical picture consistent with cardiogenic shock-he was transferred to the critical care unit 07/26/2024 for inotrope support.
Impression:
Cardiogenic shock on milrinone
Systolic cardiomyopathy, probably mediated by atrial fibrillation and alcohol abuse
Cannot rule out coronary artery disease.
Echocardiogram 07/25/2024: Ejection fraction 10-15%. Stage II diastolic dysfunction. Global hypokinesis. Moderate RV hypokinesis. Moderate to severe MR. Moderate TR. Systolic pulmonary pressures of 40 to 45 mmHg. Decreased LVEF compared to
prior in 2018 when it was normal.
Chest x-ray: 07/26/2024: Mild pulmonary vascular congestion. Bilateral pleural effusions
Atrial fibrillation with rapid ventricular response - now in NSR
Increased troponin: Likely due to demand ischemia with type II CA (peaked at 0.052 on 07/25/24)
Acute kidney injury-cardiorenal syndrome
Anion gap metabolic acidosis-secondary to shock - acidosis now resolved
Shock liver - improving
COPD with suspected acute exacerbation (mild)
Leukocytosis possibly reactive
Conditions present prior admission:
COPD
Former smoker-quit 04/2024
Alcohol abuse
Plan
Respiratory status continues to improve
Supplemental oxygen as needed-attempt to wean-assess discharge supplemental oxygen needs prior to discharge-currently on 1 L
Avoiding beta agonist with his atrial fibrillation
Continue Xopenex/Atrovent as needed in addition to Spiriva-on Anoro as an outpatient
Prednisone discontinued
NIV/BiPAP as needed-currently not needing
Aspiration precautions
Incentive spirometry
Diuresis continues as tolerated
Monitor renal function, electrolytes, intake/output, lower extremity edema and weight
Replace electrolytes as needed
Cardiology following-correspondence reviewed
Milrinone per cardiology
Amiodarone 200 mg 3 times a day
Heparin drip
Aspirin initiated
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
left-sided filling pressures-recommend continue aggressive diuresis
Alcohol withdrawal treatment protocol
Follow MSAS
Thiamine and folic acid continue
DVT prophylaxis-on heparin
Nutrition
Early mobilization
Respiratory status improved-continue to wean oxygen, continue inhalers and diuresis-pulmonary will sign off-please call with questions
Outpatient pulmonary ppjwsz-yi-[id number], yearly low-dose lung cancer screening CT, ongoing smoking cessation counseling
Data:
Patient has a CT of the chest from 05/02/2018: - showed at that time moderate emphysema. Small 3 mm lung nodule on the left mainstem bronchus, likely mucous No other significant abnormalities.
Subjective Data
-
Date of Service:
Date of Service: July 30, 2024
Chief Complaint: Pulmonary Follow Up and Dyspnea Follow Up
Subjective:
Feels better, less short of breath, no complaints of shortness of breath at rest, chest pain, chest tightness, productive cough, abdominal pain
Review of Systems
General: Other (Per HPI)
Objective Data
Data Reviewed
Vital Signs / I&O:
Vital Signs
Temp Pulse Resp BP Pulse Ox
97.3 F 67 20 107/76 95
07/30/24 07:20 07/30/24 08:50 07/30/24 07:20 07/30/24 08:50 07/30/24 07:20
Intake and Output
07/29/24 07/30/24 07/31/24
06:59 06:59 06:59
Intake Total 1520.1 / 1520.1 381 / 381
Output Total 3025 / 3025 3525 / 3525
Balance -1504.9 / -1504.9 -3144 / -3144
SaO2: 95
Nasal Cannula flow liters per minute: 1
Physical Exam
General: Respiratory Distress (n) and Comfortable
HEENT: Normocephalic, Anicteric and Moist Mucous Membranes
Cardiovascular: Regular Rhythm and Murmur
Respiratory: Clear (Diminished breath sounds and prolonged expiratory time), Wheeze (n), Crackles (n), Rhonchi (n), Non-Labored Respirations, Accessory Resp Muscle Use (n) and Stridor (n)
GI: Soft, Non Distended and Non Tender
Neurology: Awake, Alert and No Motor Deficits
Skin: Warm, Good Color, Cyanosis (n) and Jaundice (n)
Labs/Micro/Reports
Lab Data
07/30/24 04:09
07/30/24 04:09
Laboratory Results
07/30/24 07/30/24
02:05 06:00
APTT 25.2 Cancelled
[2024-07-30 09:26] LABS: ALT (SGPT) 695 U/L (0-50); AST (SGOT) 176 U/L (17-59); Alkaline Phosphatase 129 U/L (38-126)
[2024-07-30 10:50] LABS: APTT 51.7 Sec (23.4-35.0)
--- NOTE | 2024-07-30 11:28 | CM ---
Chart reviewed. Patient is independent of ADLS, lvies with his , son and DIL in a 2 STH, 2 LISSETTE, ambulates with a RW and SPC. Plan is to return home with CT Transitional RN. CM to follow
[2024-07-30 12:10] LABS: Lactic Acid 1.3 mmol/L (0.7-2.0)
--- NOTE | 2024-07-30 13:37 | W.PN.CARDCBS ---
Addendum entered and electronically signed by Nery Olivares MD 07/30/24 16:55:
I saw and examined the patient.
The Flap Curer's note was reviewed and I agree with the note.
Comment: Overall patient is doing well and doesnt offer any complaints. No issues at the right radial or femoral access sites. Patient has not been out of bed ambulating yet.
Vital signs and lab work reviewed. On exam patient is well-appearing in no acute distress, awake, alert and oriented x 3, fine bibasilar Rales, normal S1 and S2, no murmurs no rubs or gallops, abdomen is soft, nontender, nondistended with active
bowel sounds, right radial and right femoral access site with dressing in place which is clean, dry and intact without evidence of hematoma or bruit, warm extremities without significant edema.
.
Recommendations:
1. Continued optimization of GDMT for NICM. We will check baseline lactate on current dose of milrinone, then decrease milrinone drop to 0.2mcg, assess overnight labs with hopes to DC milrinone tomorrow if tolerating well.
2. We will start adding afterload reduction with hydralazine 10mg TID, hoping to increase to 25mg tid tomorrow if BPs allow.
3. Hold off on BB for now as negative inotrope, plan to ad eventually.
4. With prolonged QTc on ECG this AM, decreased amiodarone as noted below. Daily ECGs for now.
5. Cont with IV diuresis for another 24-48hrs then switch to PO.
6. If tolerating all of the above with no plans for additional procedures, hoping to start eliquis tomorrow for pAF and DC heparin dripo.
Nery Olivares MD, [facility], [facility]
Original Note:
Today's Communication / Plan
-
decrease milrinone to 0.2
add hydralazine
continue IV lasix
wean supp O2
decrease amio to 200mg BID due to prolonged QTc
repeat EKG in AM
continue IV heparin. transition to eliquis in AM
repeat echo prior to DC
Impression / Plan
-
PCP: Antonieta Green
Hemodialysis Technician: Saw Dr. Sherice Perez once in 2017
Impression:
Cardiogenic shock with multisystem organ dysfunction
Acute heart failure with reduced ejection fraction acute proBNP 21,000; mildly dilated RV with moderate hypokinesis.
Nonischemic cardiomyopathy, EF 10-15% 07/25/24
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
Prolonged QT
Moderate to severe MR
Pulmonary hypertension, likely secondary to heart failure
Acute hypoxic respiratory insufficiency
Atrial fibrillation with rapid ventricular response, spontaneously converted to sinus rhythm
MT
Abnormal LFTs�improving
Non-WA myocardial ischemic troponin elevation
Hypertension
Hyperlipidemia
Tobacco abuse
COPD
Daily alcohol use
Bilateral hip replacements and shoulder replacement
Echo 07/25/2024: LVEF 10 to 15% with global hypokinesis. Mildly dilated right ventricle with moderate RV hypokinesis. Moderate to severe eccentric MR. Moderate TR with PA pressure 40 to 45 mmHg.
Echo 07/31/2018: EF 55 to 60%. Mild concentric LVH. Mild MR, mild TR, PAP 15 to 20 mmHg
Plan:
-Status post cardiac catheterization 07/29/2024 with nonobstructive CAD and PCWP 25. CI 2.1 on milrinone.
-Continue diuresis with IV Lasix 80 mg twice daily. Weight down trending. Creatinine stable at 1.4
-Continue to wean supplemental oxygen, down to 2 L nasal cannula
-Remains on milrinone, begin to wean today. Decreased from 0.3-0.2. Lactic acid 1.3, downtrending compared to prior
-Continue IV heparin today and plan to transition to Eliquis tomorrow
-Remains in sinus rhythm on review of telemetry. QTc prolonged on EKG this morning. Decrease amiodarone to 200 mg twice daily. Repeat EKG in a.m.
-LFTs improving
-Echocardiogram 07/25 with moderate to severe MR. Would plan to repeat echocardiogram to reassess EF and MR prior to discharge
-Add hydralazine 10 mg 3 times daily today
-Continue therapy for COPD with steroids and nebulizer
-check CVE in AM. continue crestor
Progress Note - Hemodialysis Technician
Subjective
Date of Service: July 30, 2024
reports good response to diuresis
Objective
Labs:
07/30/24 04:09
07/30/24 04:09
Labs
Hgb 14.9 g/dL (13.0-18.0) 07/30/24 04:09
Hct 41.7 % (39.0-52.0) 07/30/24 04:09
Plt Count 165 10^3/uL (130-400) 07/30/24 04:09
PT Cancelled 07/26/24 03:48
INR Cancelled 07/26/24 03:48
APTT 51.7 Sec (23.4-35.0) H 07/30/24 10:05
Sodium 134 mmol/L (135-145) L 07/30/24 04:09
Potassium 3.7 mmol/L (3.5-5.1) 07/30/24 04:09
BUN 44 mg/dl (9-20) H 07/30/24 04:09
Creatinine 1.4 mg/dL (0.7-1.3) H 07/30/24 04:09
Glucose 103 mg/dl (70-99) H 07/30/24 04:09
Vital Signs and I&O:
Vital Signs
Temp Pulse Resp BP Pulse Ox
97.8 F 67 20 107/76 92
07/30/24 11:06 07/30/24 10:00 07/30/24 11:06 07/30/24 08:50 07/30/24 11:06
Vital Signs
Temp Pulse Resp BP Pulse Ox
97.8 F 67 20 107/76 92
07/30/24 11:06 07/30/24 10:00 07/30/24 11:06 07/30/24 08:50 07/30/24 11:06
Intake & Output
07/28/24 07/29/24 07/30/24 07/31/24
07:59 07:59 07:59 07:59
Intake Total 1784.9 / 1800.6 1504.4 / 1504.4 381 / 706 325 / 325
Output Total 2455 / 2455 2725 / 2725 3525 / 3725 200 / 200
Balance -670.1 / -654.4 -1220.6 / -1220.6 -3144 / -3019 125 / 125
Physical Exam
Physical Exam
GEN: No distress, awake, alert, oriented x3. on supp O2. sitting in chair
HEENT: supple, anicteric, mmm, eomi
LUNGS: CTA B/L, no wheezes/rales
CV: Reg, S1/S2, 1/6 murmur
ABD: soft, BS+, NT/ND
EXT: No cyanosis, clubbing, edema
NEURO: Gross non-focal
SKIN: Warm, pink, dry. No rash
[2024-07-30] MEDS: APRESOLINE 10 MG PO ×2 (17:10→22:48)
[2024-07-30] MEDS: LASIX IV (17:17)
--- NOTE | 2024-07-30 17:33 | PTCARENOTE ---
Milrinone drip decreased to 0.2 mcg/kg/min. VSS. Will monitor.
[2024-07-30 18:09] LABS: APTT 93.3 Sec (23.4-35.0)
[2024-07-30] MEDS: MELATONIN 3 MG PO (22:48)
[2024-07-31] VITALS (9 sets, daily range): BP systolic 101–117; BP diastolic 68–81; BMI 20.7
[2024-07-31 00:32] LABS: APTT 111.1 Sec (23.4-35.0)
[2024-07-31] MEDS: HEPARIN 25000 UNITS/250 ML IV (04:59)
[2024-07-31 06:23] LABS: Hematocrit 44.4 % (39.0-52.0); Hemoglobin 15.7 g/dL (13.0-18.0); Mean Corp Hgb Conc. 35.4 g/dL (33.0-37.0); Mean Corpuscular Hgb 35.4 pg (27.0-31.0); Mean Corpuscular Volume 100.2 fL (80.0-94.0); Mean Platelet Volume 10.7 fL (7.4-10.4); Platelet Count 181 10^3/uL (130-400); Red Blood Cell Count 4.43 10^6/uL (4.70-6.10); Red Cell Dist. Width 12.9 % (11.5-14.5); White Blood Cell Count 16.9 10^3/uL (4.8-10.8)
[2024-07-31 06:35] LABS: APTT 108.5 Sec (23.4-35.0)
[2024-07-31 06:52] LABS: ALT (SGPT) 545 U/L (0-50); AST (SGOT) 86 U/L (17-59); Albumin 3.6 g/dl (3.5-5.0); Alkaline Phosphatase 133 U/L (38-126); Blood Urea Nitrogen 45 mg/dl (9-20); Calcium 9.2 mg/dl (8.4-10.2); Carbon Dioxide 33 mmol/L (22-30); Chloride 92 mmol/L (98-107); Estimated Creatinine Clearance 50 ml/min; Glucose 117 mg/dl (70-99); HDL Cholesterol 81 mg/dl; LDL Cholesterol, Calculated 81 mg/dl; Magnesium 2.2 mg/dl (1.6-2.3); Potassium 3.6 mmol/L (3.5-5.1); Sodium 134 mmol/L (135-145); Total Cholesterol 181 mg/dl (50-199); Triglyceride 95 mg/dl (10-149); Very Low Density Lipoprotein 19 mg/dl (0-30); eGFR 59.84
--- NOTE | 2024-07-31 07:35 | W.PN.HOSP.TC ---
Today's Communication/Plan
-
appreciate cardilogy
continue Diuresis
weaning Milrinone gtt
likely transition to Eliquis
adjust GDMT as able
wean O2 as able
Assessment / Plan
Assessment / Plan
68-year-old male presented with shortness of breath found to have A-fib.
CVS: S1-S2 irregular, systolic murmur at apex and right heart border
Chest: Rales bilaterally
Abdomen: Soft, NT / Bowel sounds present
Extremities: No edema
Echo 07/25/2024-EF 10 to 15% with global hypokinesis. Mildly dilated RV with moderate RV hypokinesis. Moderate to severe eccentric MR. Moderate TR with PA pressure 40 to 45 mmHg.
Cardiac Cath 07/29/24
CONCLUSIONS
1. No obstructive coronary artery disease.
2. 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
3. Significantly elevated right and left-sided filling pressures with borderline cardiac output.
# Acute hypoxic respiratory failure
Likely secondary to cardiogenic shock in setting of A-fib
Possible COPD exacerbation also entertained - prednisone course now stopped
Was on noninvasive ventilation-now weaned down to nasal cannula
# Cardiogenic shock with multisystem organ failure. Shock resolved. stop amlodipine and allow room for GDMT
# Acute HFrEF-proBNP over 21,000
# Moderate to severe MR
# Pulmonary hypertension
-EF 10 to 15%
-continue IV lasix
-IV Milrinone gtt - weaning off
s/p cardiac cath on 07/29/24 with PCWP 25, no obstructive CAD
s/p bicarb prophylaxis
appreciate Cardiology
-continue afterload reduction with Hydralazine - titrate up as needed
-eventual initiation of b-simone
# Lactic acidosis-resolved
# Atrial fibrillation with RVR-new diagnosis
Diltiazem stopped
continue amiodarone
plan to transition from heparin gtt to Eliquis today
# COPD exacerbation
On Anoro Ellipta as outpatient
Continue Xopenex, Spiriva
s/p 5 day prednisone course
# Elevated troponin-nonischemic myocardial injury likely recent
Continue aspirin and hold statin given transaminitis
# Prolonged QTc
# Leukocytosis
# Acute kidney injury-likely cardiorenal from cardiogenic shock
# Transaminitis likely secondary to hepatic congestion and shock liver. Hold statin. Watch with Amio.
-liver enzymes improving
# Hyperlipidemia-hold statin secondary elevated LFTs
# Hypokalemia-replace as needed
# Xgorjnuhhdzv-beildhhpczip-ufvqyxtp diuresis as possible
# Alcohol abuse- MSAS protocol, thiamine
# Aortic qkvgatvz-wjalpqpvx-1.7 cm
# Depression-on Wellbutrin 300 mg daily as outpatient, restarted
# Ex Smoker
# DVT prophylaxis-heparin drip
# Full code
D/W RN
Anticipated Discharge: > 48 hours
Subjective/Interval History
-
Date of Service: July 31, 2024
continuing to urinate
feeling better
Objective Data
-
Labs:
Laboratory Results
07/31/24 07/31/24
00:06 05:58
WBC 16.9 H
Hgb 15.7
Hct 44.4
Plt Count 181
APTT 111.1 H 108.5 H
Sodium 134 L
Potassium 3.6
Chloride 92 L
Carbon Dioxide 33 H
BUN 45 H
Creatinine 1.3
Glucose 117 H
Calcium 9.2
Total Bilirubin 1.0
AST 86 H
ALT 545 H*
Alkaline Phosphatase 133 H
Vital Signs:
Vital Signs
Temp Pulse Resp BP Pulse Ox
97.7 F 67 20 117/79 97
07/31/24 06:56 07/31/24 04:00 07/31/24 06:56 07/31/24 03:46 07/31/24 06:56
I&O
07/30/24 07/31/24 08/01/24
06:59 06:59 06:59
Intake Total 381 / 381 1394.1 / 1394.1
Output Total 3525 / 3525 2450 / 2450
Balance -3144 / -3144 -1055.9 / -1055.9
Review of Systems
-
History Source: Patient
All other systems: Reviewed and negative
Physical Exam
-
General: No Apparent Distress
HEENT: PERRLA
Respiratory: Decreased Breath Sounds
Cardiac: Regular Rhythm and S1/S2
GI: Soft and Nontender
Musculoskeletal: No Edema
Skin: Warm and Dry; Negative Rash
Neuro: AO x 3
Psych: Calm
Data Reviewed
-
Diagnostic Radiology: Report Reviewed by me
Labs: Labs Reviewed by me
[2024-07-31] MEDS: SPIRIVA RESPIMAT 2.5 MCG 2 PUFF INH (08:09)
[2024-07-31] MEDS: LASIX 80 MG IV (08:35)
--- NOTE | 2024-07-31 08:46 | W.PN.CARDCBS ---
Addendum entered and electronically signed by Blake Jalloh MD 07/31/24 09:27:
I saw and examined the patient.
The Transmission Worker's note was reviewed and I agree with the note.
Comment:
GEN: No distress, awake, Ox3
HEENT: supple, anicteric, mmm
LUNGS: CTA, no wheezes/rales
CV: Reg, S1/S2, 1/6 syst LSB, no gallop
ABD: soft, BS+, NT/ND
EXT: No edema
NEURO: Gross non-focal
SKIN: No rash
Plan:
Clinically much improved. Will wean off milrinone today. Stop heparin and start Eliquis 5 mg p.o. twice daily.
Will continue IV Lasix for another 24 hours. Replete potassium.
QT C is prolonged. Decrease amiodarone to 100 mg once daily. Follow EKG.
Hopefully start carvedilol in AM. Continue hydralazine for now but eventually would like to switch to SONU/ARB if blood pressure and creatinine tolerates.
Creatinine is improved and down to 1.3.
Will repeat echo tomorrow to reevaluate LVEF and mitral valve
Original Note:
Today's Communication / Plan
-
stop IV heparin. start eliquis 5mg BID
continue IV lasix
replete K
consider stopping milrinone
wean supp O2
decrease amio to 200mg daily as remains with prolonged QTc. repeat EKG in AM
increase hydralazine
follow up echo in AM
Impression / Plan
-
PCP: Antonieta Green
Cartography/Mapping Technician: Saw Dr. Sherice Perez once in 2018
Impression:
Cardiogenic shock with multisystem organ dysfunction
Acute heart failure with reduced ejection fraction acute proBNP 21,000; mildly dilated RV with moderate hypokinesis.
Nonischemic cardiomyopathy, EF 10-15% 07/25/24
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
Prolonged QT
Moderate to severe MR
Pulmonary hypertension, likely secondary to heart failure
Acute hypoxic respiratory insufficiency
Atrial fibrillation with rapid ventricular response, spontaneously converted to sinus rhythm
MT
Abnormal LFTs�improving
Non-SD myocardial ischemic troponin elevation
Hypertension
Hyperlipidemia
Tobacco abuse
COPD
Daily alcohol use
Bilateral hip replacements and shoulder replacement
Echo 07/25/2024: LVEF 10 to 15% with global hypokinesis. Mildly dilated right ventricle with moderate RV hypokinesis. Moderate to severe eccentric MR. Moderate TR with PA pressure 40 to 45 mmHg.
Echo 07/31/2018: EF 55 to 60%. Mild concentric LVH. Mild MR, mild TR, PAP 15 to 20 mmHg
Plan:
-Status post cardiac catheterization 07/29/2024 with nonobstructive CAD and PCWP 25. CI was 2.1 on milrinone @0.3.
-Continue diuresis with IV Lasix 80 mg twice daily. Weight down trending. Creatinine continues to improve, 1.3 on 07/31
-Continue to wean supplemental oxygen as able, presently on 2 L nasal cannula
-currently on milrinone @0.2, consider stopping today
-stop IV heparin. transition to eliquis 5mg BID
-Remains in sinus rhythm on review of telemetry. QTc remains prolonged on EKG this morning. will plan to decrease amiodarone to 200mg daily. replete K, 3.6 on 07/31. mag 2.2
-LFTs continue to improve
-Echocardiogram 07/25 with moderate to severe MR. Would plan for follow up echocardiogram to reassess EF and MR in AM
-uptitrate hydralazine to 25mg TID. consider addition of BB prior to DC
-Continue therapy for COPD with steroids and nebulizer
-LDL 81. continue crestor
-increase ambulation
-d/w nursing
Progress Note - Cartography/Mapping Technician
Subjective
Date of Service: July 31, 2024
no issues overnight. reports good urine output with lasix
Objective
Labs:
07/31/24 05:58
07/31/24 05:58
Labs
Hgb 15.7 g/dL (13.0-18.0) 07/31/24 05:58
Hct 44.4 % (39.0-52.0) 07/31/24 05:58
Plt Count 181 10^3/uL (130-400) 07/31/24 05:58
PT Cancelled 07/26/24 03:48
INR Cancelled 07/26/24 03:48
APTT 108.5 Sec (23.4-35.0) H 07/31/24 05:58
Sodium 134 mmol/L (135-145) L 07/31/24 05:58
Potassium 3.6 mmol/L (3.5-5.1) 07/31/24 05:58
BUN 45 mg/dl (9-20) H 07/31/24 05:58
Creatinine 1.3 mg/dL (0.7-1.3) 07/31/24 05:58
Glucose 117 mg/dl (70-99) H 07/31/24 05:58
Vital Signs and I&O:
Vital Signs
Temp Pulse Resp BP Pulse Ox
97.7 F 65 16 110/76 96
07/31/24 06:56 07/31/24 08:35 07/31/24 08:10 07/31/24 08:35 07/31/24 08:10
Vital Signs
Temp Pulse Resp BP Pulse Ox
97.7 F 65 16 110/76 96
07/31/24 06:56 07/31/24 08:35 07/31/24 08:10 07/31/24 08:35 07/31/24 08:10
Intake & Output
07/29/24 07/30/24 07/31/24 08/01/24
07:59 07:59 07:59 07:59
Intake Total 1504.4 / 1504.4 381 / 706 1394.1 / 1394.1
Output Total 2725 / 2725 3525 / 3725 2450 / 2450
Balance -1220.6 / -1220.6 -3144 / -3019 -1055.9 / -1055.9
Physical Exam
Physical Exam
GEN: No distress, awake, alert, oriented x3. on supp O2.
HEENT: supple, anicteric, mmm, eomi
LUNGS: CTA B/L, no wheezes/rales
CV: Reg, S1/S2, 1/6 murmur
ABD: soft, BS+, NT/ND
EXT: No cyanosis, clubbing, edema
NEURO: Gross non-focal
SKIN: Warm, pink, dry. No rash. R wrist site c/d/i
[2024-07-31] MEDS: ASPIR LOW (ENTERIC COATED) 81 MG PO (08:48)
[2024-07-31] MEDS: VITAMIN D3 (cholecalciferol) 25 MCG PO (08:49)
[2024-07-31] MEDS: VITAMIN B1 100 MG PO ×2 (08:49→21:00)
[2024-07-31] MEDS: PACERONE 200 MG PO (08:49)
[2024-07-31] MEDS: FOLVITE 1 MG PO (08:49)
[2024-07-31] MEDS: WELLBUTRIN XL (24 hour extended release) 300 MG PO (08:49)
[2024-07-31] MEDS: ELIQUIS 5 MG PO ×2 (09:20→21:00)
[2024-07-31] MEDS: KCL 40 MEQ PO (09:21)
[2024-07-31] MEDS: APRESOLINE 10 MG PO ×2 (09:26→21:00)
[2024-07-31] MEDS: APRESOLINE PO (09:28)
--- NOTE | 2024-07-31 10:55 | CM ---
Chart reviewed. Patient is independent of ADLS, lives with his , son and DIL in a [address], [facility], does not use any DME but has a SPC and RW at home. Plan is for the patient to return home with [facility]. CM to follow
--- NOTE | 2024-07-31 11:57 | PTCARENOTE ---
Pt verbalized feeling warm and also midsternal ACW pressure that started 5 minutes prior. Pt rated this pressure as 3 out of 10. Pt noted to be diaphoretic. VSS, EKG obtained. PA notified.
--- NOTE | 2024-07-31 12:00 | PTCARENOTE ---
Pt sat up higher in bed and belched. Pt stated that it was getting better. Will monitor.
--- NOTE | 2024-07-31 12:05 | W.PN.UPDATE ---
Update Note
Progress Note Update
CTSP as c/o 11/24 chest discomfort with associated 'warm and sweaty' feelings. reports he belched with improvement. discomfort essentially gone. reviewed EKG which is abnormal however stable compared to prior. cath this admission with nonobstructive
CAD. d/w nursing. will continue to monitor
--- NOTE | 2024-07-31 12:48 | CM ---
Pricing on Farxiga 10mg daily is $47 for a 30 day supply. Ii placed a free 30 day coupon in the patient's red discharge folder.
--- NOTE | 2024-07-31 14:59 | PTCARENOTE ---
Addendum entered by Elicia Ribera RN 07/31/24 15:31:
1600 Lasix decreased to 40 IVP
Addendum entered by Elicia Ribera RN 07/31/24 15:13:
Jelly ENGLE aware of BP and HR ordered to give 80 mg iv Lasix and hold Hydralazine PO.
Original Note:
Assumed care of the pt @ 1400. Pt c/o mild dizziness sitting in the chair BP 101/68 HR 50-60's SB Sats 96% on RA. Pt was assisted back to back.
--- NOTE | 2024-07-31 15:23 | W.PN.UPDATE ---
Update Note
Progress Note Update
informed by nursing patient with some mild dizziness while sitting in chair. helped back to bed with improvement. BP 101/62. HR 50-60s. will hold 4PM hydralazine dose and decrease back to 10mg TID. will reduce afternoon lasix dose to 40mg IV. await
AM labs prior to additional lasix, may be getting dry.
[2024-07-31] MEDS: LASIX 40 MG IV (15:43)
[2024-07-31] MEDS: MELATONIN 5 MG PO (23:06)
[2024-08-01] VITALS (9 sets, daily range): BP systolic 97–114; BP diastolic 67–83; PULSE 68; BMI 20.1
[2024-08-01 04:06] LABS: Hematocrit 48.7 % (39.0-52.0); Hemoglobin 17.2 g/dL (13.0-18.0); Mean Corp Hgb Conc. 35.3 g/dL (33.0-37.0); Mean Corpuscular Hgb 36.1 pg (27.0-31.0); Mean Corpuscular Volume 102.3 fL (80.0-94.0); Mean Platelet Volume 10.4 fL (7.4-10.4); Platelet Count 178 10^3/uL (130-400); Red Blood Cell Count 4.76 10^6/uL (4.70-6.10); Red Cell Dist. Width 13.2 % (11.5-14.5); White Blood Cell Count 14.3 10^3/uL (4.8-10.8)
[2024-08-01 04:29] LABS: ALT (SGPT) 440 U/L (0-50); AST (SGOT) 67 U/L (17-59); Albumin 3.8 g/dl (3.5-5.0); Alkaline Phosphatase 124 U/L (38-126); Blood Urea Nitrogen 44 mg/dl (9-20); Calcium 9.2 mg/dl (8.4-10.2); Carbon Dioxide 32 mmol/L (22-30); Chloride 94 mmol/L (98-107); Estimated Creatinine Clearance 49 ml/min; Glucose 91 mg/dl (70-99); Potassium 4.1 mmol/L (3.5-5.1); Sodium 137 mmol/L (135-145); Total Protein 6.4 g/dl (6.3-8.2); eGFR 59.84
[2024-08-01] MEDS: WELLBUTRIN XL (24 hour extended release) 300 MG PO (07:45)
[2024-08-01] MEDS: VITAMIN B1 100 MG PO ×2 (07:46→19:36)
[2024-08-01] MEDS: FOLVITE 1 MG PO (07:46)
[2024-08-01] MEDS: PACERONE 200 MG PO (07:46)
[2024-08-01] MEDS: ELIQUIS 5 MG PO ×2 (07:46→19:36)
[2024-08-01] MEDS: VITAMIN D3 (cholecalciferol) 25 MCG PO (07:47)
--- NOTE | 2024-08-01 07:50 | W.PN.HOSP.TC ---
Today's Communication/Plan
-
repeat echo this morning
follow up further cardiology recommendations
Assessment / Plan
Assessment / Plan
68-year-old male presented with shortness of breath found to have A-fib.
CVS: S1-S2 irregular, systolic murmur at apex and right heart border
Chest: Rales bilaterally
Abdomen: Soft, NT / Bowel sounds present
Extremities: No edema
Echo 07/25/2024-EF 10 to 15% with global hypokinesis. Mildly dilated RV with moderate RV hypokinesis. Moderate to severe eccentric MR. Moderate TR with PA pressure 40 to 45 mmHg.
Cardiac Cath 07/29/24
CONCLUSIONS
1. No obstructive coronary artery disease.
2. 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
3. Significantly elevated right and left-sided filling pressures with borderline cardiac output.
# Acute hypoxic respiratory failure
Likely secondary to cardiogenic shock in setting of A-fib
Possible COPD exacerbation also entertained - prednisone course now stopped
Was on noninvasive ventilation-now weaned down to nasal cannula
# Cardiogenic shock with multisystem organ failure. Shock resolved. stop amlodipine and allow room for GDMT
# Acute HFrEF-proBNP over 21,000
# Moderate to severe MR
# Pulmonary hypertension
-EF 10 to 15%
-s/p IV lasix - follow up further cardiology recommendations; repeat TTE ordered this morning
-IV Milrinone gtt weaned off
s/p cardiac cath on 07/29/24 with PCWP 25, no obstructive CAD
s/p bicarb prophylaxis
appreciate Cardiology
-continue afterload reduction with Hydralazine - titrate up as needed
-eventual initiation of b-simone
# Lactic acidosis-resolved
# Atrial fibrillation with RVR-new diagnosis
Diltiazem stopped
continue amiodarone
transitioned from heparin gtt to Eliquis
# COPD exacerbation
On Anoro Ellipta as outpatient
Continue Xopenex, Spiriva
s/p 5 day prednisone course
# Elevated troponin-nonischemic myocardial injury likely recent
Continue aspirin and hold statin given transaminitis
# Prolonged QTc
# Leukocytosis
# Acute kidney injury-likely cardiorenal from cardiogenic shock
# Transaminitis likely secondary to hepatic congestion and shock liver. Hold statin. Watch with Amio.
-liver enzymes improving
# Hyperlipidemia-hold statin secondary elevated LFTs
# Hypokalemia-replace as needed
# Eeoqoanyymvo-uvrxpglwhnzc-molnqzou diuresis as possible
# Alcohol abuse- MSAS protocol, thiamine
# Aortic bldjbvbz-igoulhmpo-3.7 cm
# Depression-on Wellbutrin 300 mg daily as outpatient, restarted
# Ex Smoker
# DVT prophylaxis-heparin drip
# Full code
D/W RN
Anticipated Discharge: 24 - 48 hours
Subjective/Interval History
-
Date of Service: August 01, 2024
feeling well
about to get an echo
Objective Data
-
Labs:
Laboratory Results
08/01/24 08/01/24
03:48 06:00
WBC 14.3 H
Hgb 17.2
Hct 48.7
Plt Count 178
APTT Cancelled
Sodium 137
Potassium 4.1
Chloride 94 L
Carbon Dioxide 32 H
BUN 44 H
Creatinine 1.3
Glucose 91
Calcium 9.2
Total Bilirubin 1.0
AST 67 H
ALT 440 H
Alkaline Phosphatase 124
Vital Signs:
Vital Signs
Temp Pulse Resp BP Pulse Ox
97.7 F 58 20 114/77 96
08/01/24 06:55 08/01/24 07:46 08/01/24 06:55 08/01/24 07:46 08/01/24 06:55
I&O
07/31/24 08/01/24 08/02/24
06:59 06:59 06:59
Intake Total 1394.1 / 1394.1 274.15 / 274.15
Output Total 2450 / 2450 2525 / 2525 175 / 175
Balance -1055.9 / -1055.9 -2250.85 / -2250.85 -175 / -175
Review of Systems
-
History Source: Patient
All other systems: Reviewed and negative
Physical Exam
-
General: No Apparent Distress
HEENT: PERRLA
Respiratory: Decreased Breath Sounds
Cardiac: Regular Rhythm and S1/S2
GI: Soft and Nontender
Musculoskeletal: No Edema
Skin: Warm and Dry; Negative Rash
Neuro: AO x 3
Psych: Calm
Data Reviewed
-
Diagnostic Radiology: Report Reviewed by me
Labs: Labs Reviewed by me
[2024-08-01] MEDS: ASPIR LOW (ENTERIC COATED) 81 MG PO (07:51)
[2024-08-01] MEDS: APRESOLINE 10 MG PO ×3 (07:51→22:12)
[2024-08-01] MEDS: SPIRIVA RESPIMAT 2.5 MCG 2 PUFF INH (08:26)
[2024-08-01] MEDS: LASIX 40 MG PO ×2 (11:37→16:21)
--- NOTE | 2024-08-01 11:43 | CM ---
Chart reviewed. Patient is independent of ADLS, lives with his , son and DIL in a [address], [address] [place], 0 DME but has a RW and SPC at home. Plan is for the patient to return home with [facility]. CM to follow
--- NOTE | 2024-08-01 12:14 | W.PN.CARDCBS ---
Addendum entered and electronically signed by Dutch Espinal MD 08/01/24 13:08:
I saw and examined the patient.
The SUPERVISOR WARPING DEPARTMENT or PA's note was reviewed and I agree with the note.
Comment: General: Well developed, well nourished in NAD.
Neck: Supple, no JVD, HJR, carotids +2 B/L, no bruits bilaterally.
Heart: Non displaced PMI, RRR, no murmurs, No S3, S4, no rubs.
Lungs: Scattered rhonchi.
Extremities: No clubbing, cyanosis or edema bilaterally.
Neuro: Grossly nonfocal, awake, alert and oriented x3.
He continues to improve. He is on oral medications. Will need to follow QT interval on ECG. Echocardiogram is unchanged. Possible discharge 08/02 from cardiology viewpoint.
Original Note:
Today's Communication / Plan
-
po lasix 40mg BID
QTc prolonged on amiodarone 200mg daily - may need to stop, will review with
follow up echo
GDMT limited by hypotension/bradycardia
ambulate
nearing DC
Impression / Plan
-
PCP: Antonieta Green
Balance Clerk: Saw Dr. Sherice Perez once in 2018
Impression:
Cardiogenic shock with multisystem organ dysfunction
Acute heart failure with reduced ejection fraction acute proBNP 21,000; mildly dilated RV with moderate hypokinesis.
Nonischemic cardiomyopathy, EF 10-15% 07/25/24
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
Prolonged QT
Moderate to severe MR
Pulmonary hypertension, likely secondary to heart failure
Acute hypoxic respiratory insufficiency
Atrial fibrillation with rapid ventricular response, spontaneously converted to sinus rhythm
MT
Abnormal LFTs�improving
Non-MO myocardial ischemic troponin elevation
Hypertension
Hyperlipidemia
Tobacco abuse
COPD
Daily alcohol use
Bilateral hip replacements and shoulder replacement
Echo 07/25/2024: LVEF 10 to 15% with global hypokinesis. Mildly dilated right ventricle with moderate RV hypokinesis. Moderate to severe eccentric MR. Moderate TR with PA pressure 40 to 45 mmHg.
Echo 07/31/2018: EF 55 to 60%. Mild concentric LVH. Mild MR, mild TR, PAP 15 to 20 mmHg
Plan:
-Status post cardiac catheterization 07/29/2024 with nonobstructive CAD and PCWP 25. CI was 2.1 on milrinone @0.3.
-weaned off milrinone 07/31.
-yesterday afternoon with some dizziness. transitioned to po lasix 40mg BID. weight continues to trend down. Cr stable at 1.3
-currently on RA
-in SR on review of tele. continue eliquis
-QTc remains prolonged by review of EKG today. amio has been decreased over last 48 hours from TID to 200mg daily dosing. K stable. may need to review with EP
-LFTs continue to improve
-Echocardiogram 07/25 with moderate to severe MR. follow up echo today
-continue low dose hydralazine. unclear if will be able to tolerate BB with hypotension/bradycardia
-Continue therapy for COPD with steroids and nebulizer
-LDL 81. continue crestor
-increase ambulation
-will arrange OP cardiac follow up
-d/w nursing
Progress Note - Balance Clerk
Subjective
Date of Service: August 01, 2024
feeling well today. ambulatory without SOB
Objective
Labs:
08/01/24 03:48
08/01/24 03:48
Labs
Hgb 17.2 g/dL (13.0-18.0) 08/01/24 03:48
Hct 48.7 % (39.0-52.0) 08/01/24 03:48
Plt Count 178 10^3/uL (130-400) 08/01/24 03:48
PT Cancelled 07/26/24 03:48
INR Cancelled 07/26/24 03:48
APTT Cancelled 08/01/24 06:00
Sodium 137 mmol/L (135-145) 08/01/24 03:48
Potassium 4.1 mmol/L (3.5-5.1) 08/01/24 03:48
BUN 44 mg/dl (9-20) H 08/01/24 03:48
Creatinine 1.3 mg/dL (0.7-1.3) 08/01/24 03:48
Glucose 91 mg/dl (70-99) 08/01/24 03:48
Vital Signs and I&O:
Vital Signs
Temp Pulse Resp BP Pulse Ox
97.8 F 64 20 103/79 95
08/01/24 11:23 08/01/24 11:37 08/01/24 11:23 08/01/24 11:37 08/01/24 11:23
Vital Signs
Temp Pulse Resp BP Pulse Ox
97.8 F 64 20 103/79 95
08/01/24 11:23 08/01/24 11:37 08/01/24 11:23 08/01/24 11:37 08/01/24 11:23
Intake & Output
07/30/24 07/31/24 08/01/24 08/02/24
07:59 07:59 07:59 07:59
Intake Total 381 / 706 1394.1 / 1394.1 274.15 / 274.15
Output Total 3525 / 3725 2450 / 2450 2700 / 2700 200 / 200
Balance -3144 / -3019 -1055.9 / -1055.9 -2425.85 / -2425.85 -200 / -200
Physical Exam
Physical Exam
GEN: No distress, awake, alert, oriented x3. sitting in chair
HEENT: supple, anicteric, mmm, eomi
LUNGS: Few mild exp wheezes
CV: Reg, S1/S2, 1/6 murmur
ABD: soft, BS+, NT/ND
EXT: No cyanosis, clubbing, edema
NEURO: Gross non-focal
SKIN: Warm, pink, dry. No rash.
--- NOTE | 2024-08-01 17:00 | PTCARENOTE ---
Pt stable this shift, VSS SB- SR on the monitor, oob to chair most of the shift ambulating in room, educated on heart failure, denies cp or dizziness this shift.
--- NOTE | 2024-08-01 22:34 | PTCARENOTE ---
Received pt at change of shift. SB on the monitor with prolonged QT. HR in the 50s. VSS. R arm dressing CDI. R radial and R groin sites YONATHAN and intact. No complaints from pt at this time, call mtz within reach.
[2024-08-02 04:37] VITALS: BP 116/85
[2024-08-02 05:13] LABS: Hematocrit 50.9 % (39.0-52.0); Hemoglobin 17.8 g/dL (13.0-18.0); Mean Corpuscular Hgb 35.6 pg (27.0-31.0); Mean Corpuscular Volume 101.8 fL (80.0-94.0); Mean Platelet Volume 10.4 fL (7.4-10.4); Platelet Count 182 10^3/uL (130-400); Red Cell Dist. Width 13.4 % (11.5-14.5); White Blood Cell Count 16.6 10^3/uL (4.8-10.8)
[2024-08-02 05:37] LABS: Blood Urea Nitrogen 40 mg/dl (9-20); Calcium 9.3 mg/dl (8.4-10.2); Carbon Dioxide 28 mmol/L (22-30); Chloride 96 mmol/L (98-107); Estimated Creatinine Clearance 53 ml/min; Glucose 97 mg/dl (70-99); Potassium 3.8 mmol/L (3.5-5.1); Sodium 135 mmol/L (135-145); eGFR > 60.00
[2024-08-02 06:00] VITALS: BMI 20.2
--- NOTE | 2024-08-02 07:40 | W.PN.HOSP.TC ---
Today's Communication/Plan
-
OK for DC with HH
Assessment / Plan
Assessment / Plan
68-year-old male presented with shortness of breath found to have A-fib.
CVS: S1-S2 irregular, systolic murmur at apex and right heart border
Chest: Rales bilaterally
Abdomen: Soft, NT / Bowel sounds present
Extremities: No edema
Echo 07/25/2024-EF 10 to 15% with global hypokinesis. Mildly dilated RV with moderate RV hypokinesis. Moderate to severe eccentric MR. Moderate TR with PA pressure 40 to 45 mmHg.
Cardiac Cath 07/29/24
CONCLUSIONS
1. No obstructive coronary artery disease.
2. 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
3. Significantly elevated right and left-sided filling pressures with borderline cardiac output.
# Acute hypoxic respiratory failure
Likely secondary to cardiogenic shock in setting of A-fib
Possible COPD exacerbation also entertained - prednisone course now stopped
Was on noninvasive ventilation-now weaned down to nasal cannula
# Cardiogenic shock with multisystem organ failure. Shock resolved. stop amlodipine and allow room for GDMT
# Acute HFrEF-proBNP over 21,000
# Moderate to severe MR
# Pulmonary hypertension
-EF 10 to 15%
-s/p IV lasix - transitioned to oral on 08/01
-IV Milrinone gtt weaned off
s/p cardiac cath on 07/29/24 with PCWP 25, no obstructive CAD
s/p bicarb prophylaxis
appreciate Cardiology
-continue afterload reduction with Hydralazine - titrate up as needed
-eventual initiation of b-simone outpatient
-follow up labs outpatient
OK for DC
# Lactic acidosis-resolved
Persistent Leukocytosis
-initially thought 2/2 steroids, remains elevated
likely stress reaction, no e/o infection
will repeat CBC with CMP in 5 days - WBC to be monitored as outpatient, if remains high consider Heme referral
# Atrial fibrillation with RVR-new diagnosis
Diltiazem stopped
continue amiodarone
transitioned from heparin gtt to Eliquis
# COPD exacerbation
On Anoro Ellipta as outpatient
Continue Xopenex, Spiriva
s/p 5 day prednisone course
# Elevated troponin-nonischemic myocardial injury likely recent
Continue aspirin and hold statin given transaminitis
# Prolonged QTc
# Leukocytosis
# Acute kidney injury-likely cardiorenal from cardiogenic shock
# Transaminitis likely secondary to hepatic congestion and shock liver. Hold statin. Watch with Amio.
-liver enzymes improving
# Hyperlipidemia-hold statin secondary elevated LFTs
# Hypokalemia-replace as needed
# Gggfcvxyhcro-nubpnuflgqcx-rvmnyjlf diuresis as possible
# Alcohol abuse- MSAS protocol, thiamine
# Aortic pgveolye-xmfezyqsv-0.7 cm
# Depression-on Wellbutrin 300 mg daily as outpatient, restarted
# Ex Smoker
# DVT prophylaxis-heparin drip
# Full code
D/W RN
Anticipated Discharge: Today
Subjective/Interval History
-
Date of Service: August 02, 2024
feeling well
ready to go home today
Objective Data
-
Labs:
Laboratory Results
08/02/24 08/02/24
04:52 04:53
WBC 16.6 H
Hgb 17.8
Hct 50.9
Plt Count 182
Sodium 135
Potassium 3.8
Chloride 96 L
Carbon Dioxide 28
BUN 40 H
Creatinine 1.2
Glucose 97
Calcium 9.3
Vital Signs:
Vital Signs
Temp Pulse Resp BP Pulse Ox
98 F 59 18 116/85 98
08/02/24 04:58 08/02/24 04:37 08/02/24 04:58 08/02/24 04:37 08/02/24 04:58
I&O
08/01/24 08/02/24 08/03/24
06:59 06:59 06:59
Intake Total 274.15 / 274.15 620 / 620
Output Total 2525 / 2525 1750 / 1750
Balance -2250.85 / -2250.85 -1130 / -1130
Review of Systems
-
History Source: Patient
All other systems: Reviewed and negative
Physical Exam
-
General: No Apparent Distress
HEENT: PERRLA
Respiratory: Decreased Breath Sounds
Cardiac: Regular Rhythm and S1/S2
GI: Soft and Nontender
Musculoskeletal: No Edema
Skin: Warm and Dry; Negative Rash
Neuro: AO x 3
Psych: Calm
Data Reviewed
-
Diagnostic Radiology: Report Reviewed by me
Labs: Labs Reviewed by me
[2024-08-02 07:55] VITALS: BP 114/79
--- NOTE | 2024-08-02 08:06 | W.DS.TRANS ---
DC Summary - Sock Mender
-
Discharge Instructions:
Sleep Apnea Risk Intermediate
Discharge Diagnosis/Procedures Cardiac cath, heart failure reduced ejection
fraction
Diet Low Cholesterol,2 Gram Sodium,Restrict fluids to
48 oz
Activity No strenuous activity
Driving Restrictions No driving for 24 hours
Blood Work CMP, CBC and Magnesium on Sunday08/08/24 (to be
collected by home health)
Other Services VN,PT
Specialty Instructions Weigh Daily
Instructions: *DCA Heart Failure Instructions
Stand-Alone Forms: DC Instructions- Cath/EP Lab
Changes to Home Medications: Yes
Discharge Medications:
DC Medications w/original date entered in [facility]
bupropion HCl 150 mg 24 hr tablet, extended release 300 mg PO DAILY Mental Health/Anxiety 07/25/24
ipratropium 0.5 mg-albuterol 3 mg (2.5 mg base)/3 mL nebulization soln 3 ml inhalation R BID Lung/Breathing Issues 07/25/24
rosuvastatin 20 mg tablet 20 mg PO DAILY High Cholesterol 07/25/24
umeclidinium 62.5 mcg-vilanterol 25 mcg/actuation powdr for inhalation (Anoro Ellipta) 1 inh inhalation DAILY Lung/Breathing Issues 07/25/24
amiodarone 200 mg tablet 200 mg PO DAILY #30 tabs 08/02/24
apixaban 5 mg tablet (Eliquis) 5 mg PO BID #60 tabs 08/02/24
cholecalciferol (vitamin D3) 25 mcg (1,000 unit) tablet 25 mcg PO DAILY #30 tabs 08/02/24
furosemide 40 mg tablet 40 mg PO BID AT 0800,1600 #60 tabs 08/02/24
hydralazine 10 mg tablet 10 mg PO TID #90 tabs 08/02/24
thiamine HCl (vitamin B1) 100 mg tablet 100 mg PO DAILY #30 tabs 08/02/24
Home Medication Changes
STOP AMLODIPINE
STOP ANTIBIOTICS AND PREDNISONE (completed course in hospital)
HOLD ROSUVASTATIN (for cholesterol) - this will be resumed when liver enzymes are back to normal
You are newly started on:
Lasix 40mg twice a day (to keep fluid off)
Amiodarone 200mg daily (to keep you out of atrial fibrillation)
Eliquis twice a day (to prevent stroke with atrial fibrillation)
Hydralazine 10mg 3x/day (to help control blood pressure and strengthen heart)
Thiamine 100mg daily (vitamins)
Vitamin D3 for low vitamin D level
Pending Results: No
[2024-08-02] MEDS: SPIRIVA RESPIMAT 2.5 MCG 2 PUFF INH (08:17)
--- NOTE | 2024-08-02 08:21 | W.PN.CARDCBS ---
Addendum entered and electronically signed by Dutch Espinal MD 08/02/24 09:49:
I saw and examined the patient.
The PSYCHOLOGICAL EXAMINER or PA's note was reviewed and I agree with the note.
Comment: General: Well developed, well nourished in NAD.
Neck: Supple, no JVD, HJR, carotids +2 B/L, no bruits bilaterally.
Heart: Non displaced PMI, RRR, no murmurs, No S3, S4, no rubs.
Lungs: Scattered rhonchi
Extremities: No clubbing, cyanosis or edema bilaterally.
Neuro: Grossly nonfocal, awake, alert and oriented x3.
Stable cardiology status for discharge. Will change hydralazine 10 3 times daily to 25 mg p.o. twice daily. Could consider transition to SONU/ARB as an outpatient as blood pressure and heart rate tolerates. ECG in office 1 week to evaluate QTc.
Outpatient follow-up has been arranged. Will need repeat echo in 3 months to reevaluate ejection fraction and MRI. Discussed with primary service.
Original Note:
Today's Communication / Plan
-
stop asa
eliquis 5mg BID
amiodarone 200mg daily
hydralazine 25mg BID. consider transition to sonu/arb as OP and uptitration of CM/CHF medications as BP/HR tolerate
lasix 40mg BID
CMP in 1 week
EKG in office next week to reeval QTc
OP cardiac follow up arranged
needs repeat echo in 3 months to reeval EF and MR
Impression / Plan
-
PCP: Antonieta Green
Finance Teacher: Saw Dr. Sherice Perez once in 2018
Impression:
Cardiogenic shock with multisystem organ dysfunction
Acute heart failure with reduced ejection fraction acute proBNP 21,000; mildly dilated RV with moderate hypokinesis.
Nonischemic cardiomyopathy, EF 10-15% 07/25/24
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
Prolonged QT
Moderate to severe MR
Pulmonary hypertension, likely secondary to heart failure
Acute hypoxic respiratory insufficiency
Atrial fibrillation with rapid ventricular response, spontaneously converted to sinus rhythm
MT
Abnormal LFTs�improving
Non-AZ myocardial ischemic troponin elevation
Hypertension
Hyperlipidemia
Tobacco abuse
COPD
Daily alcohol use
Bilateral hip replacements and shoulder replacement
Echo 07/31/2018: EF 55 to 60%. Mild concentric LVH. Mild MR, mild TR, PAP 15 to 20 mmHg
Echo 07/25/2024: LVEF 10 to 15% with global hypokinesis. Mildly dilated right ventricle with moderate RV hypokinesis. Moderate to severe eccentric MR. Moderate TR with PA pressure 40 to 45 mmHg.
ECHO 08/01/24: EF 15 to 20%, global hypokinesis, probable inferior, mid septal, mid anterior, apical akinesis, moderate and possibly severe MR
Plan:
-Status post cardiac catheterization 07/29/2024 with nonobstructive CAD and PCWP 25. CI was 2.1 on milrinone @0.3.
-weaned off milrinone 07/31.
-Feeling well overnight
-Weight stable at 140 pounds. Continue p.o. Lasix 40 mg twice daily. Creatinine continues to improve at 1.2
-LFTs improving
-CMP in 1 week
-CHF education discussed with patient today
-remains in SR/SB with stable but prolonged QTc on amiodarone 200mg daily. will repeat EKG at office visit next week
-continue eliquis. stop asa
-repeat echo 07/31 with possible mild improvement in EF, remains with MR. will need repeat echo in several months to reassess EF and MR. may require eval for mitral valve intervention if remains significant
-currently remains on low dose hydralazine, will transition to 25mg BID for DC. likely transition to sonu/arb as OP. consider addition of BB as able to tolerate, for now avoiding with bradycardia/hypotension/COPD
-Continue therapy for COPD with steroids and nebulizer
-LDL 81. crestor likely to be resumed next week if LFTs continue to improve
-smoking cessation
-OP cardiac follow up arranged
-plan for DC to home today
-d/w hospitalist
Progress Note - Finance Teacher
Subjective
Date of Service: August 02, 2024
No chest pain, shortness of breath, palpitations, dizziness.
Objective
Labs:
08/02/24 04:53
08/02/24 04:52
Labs
Hgb 17.8 g/dL (13.0-18.0) 08/02/24 04:53
Hct 50.9 % (39.0-52.0) 08/02/24 04:53
Plt Count 182 10^3/uL (130-400) 08/02/24 04:53
PT Cancelled 07/26/24 03:48
INR Cancelled 07/26/24 03:48
APTT Cancelled 08/01/24 06:00
Sodium 135 mmol/L (135-145) 08/02/24 04:52
Potassium 3.8 mmol/L (3.5-5.1) 08/02/24 04:52
BUN 40 mg/dl (9-20) H 08/02/24 04:52
Creatinine 1.2 mg/dL (0.7-1.3) 08/02/24 04:52
Glucose 97 mg/dl (70-99) 08/02/24 04:52
Vital Signs and I&O:
Vital Signs
Temp Pulse Resp BP Pulse Ox
97.8 F 62 16 116/85 95
08/02/24 07:55 08/02/24 08:19 08/02/24 08:19 08/02/24 04:37 08/02/24 08:19
Vital Signs
Temp Pulse Resp BP Pulse Ox
97.8 F 62 16 116/85 95
08/02/24 07:55 08/02/24 08:19 08/02/24 08:19 08/02/24 04:37 08/02/24 08:19
Intake & Output
07/31/24 08/01/24 08/02/24 08/03/24
07:59 07:59 07:59 07:59
Intake Total 1394.1 / 1394.1 274.15 / 274.15 620 / 620
Output Total 2450 / 2450 2700 / 2700 1575 / 1575
Balance -1055.9 / -1055.9 -2425.85 / -2425.85 -955 / -955
Physical Exam
Physical Exam
GEN: No distress, awake, alert, oriented x3.
HEENT: supple, anicteric, mmm, eomi
LUNGS: CTA B/L, no wheezes
CV: Reg, S1/S2, 1/6 murmur
ABD: soft, BS+, NT/ND
EXT: No cyanosis, clubbing, edema
NEURO: Gross non-focal
SKIN: Warm, pink, dry. No rash.
[2024-08-02] MEDS: FOLVITE 1 MG PO (08:28)
[2024-08-02] MEDS: ELIQUIS 5 MG PO (08:28)
[2024-08-02] MEDS: PACERONE 200 MG PO (08:28)
[2024-08-02] MEDS: ASPIR LOW (ENTERIC COATED) 81 MG PO (08:28)
[2024-08-02] MEDS: VITAMIN D3 (cholecalciferol) 25 MCG PO (08:28)
[2024-08-02] MEDS: LASIX 40 MG PO (08:29)
[2024-08-02] MEDS: APRESOLINE 10 MG PO (08:34)
[2024-08-02] MEDS: VITAMIN B1 100 MG PO (08:34)
[2024-08-02] MEDS: WELLBUTRIN XL (24 hour extended release) PO (09:21)
--- NOTE | 2024-08-02 11:10 | PTCARENOTE ---
Pt received this am with no c/o of any pain or sob. OOB ad phil in the room, gait steady. Room air sat 98%. Pt discharged to home with his and son. Discharge instructions given and reviewed with pt and his family with good understanding. Radial
and groin cath sites YONATHAN and WNL.
--- NOTE | 2024-08-02 15:16 | W.DCSUMMARY ---
Discharge Summary
Discharge Data
Date of Admission: 07/25/24
Date of Discharge: 08/03/24
-
Pending Results: No
Hospital Course
Discharging Physician : Dr. Guadalupe Newton
Disposition : Home
Primary care physician : Dr. Jenna Green
Principal Discharge diagnosis : Heart Failure reduced Ejection Fraction, new diagnosis
Hospital Course :
Mr. Lázaro Mcmahan is a 68 yo man with hx HTN, HLD, COPD, daily alcohol use presents to the ER with shortness of breath. He was found to be in rapid afib with RVR. BNP 21,000, creatinine 1.7, Troponin 0.041, liver enzymes elevated. CXR with e/o
heart failure. Patient required non-invasive ventilation on admission for increased work of breathing. He was initially placed on IV Diltiazem for afib with RVR and diuresed. Overnight labs suggestive of shock liver and worsening renal function
with repeat echo showing EF 10%. Diltiazem gtt immediately stopped and he was transferred to the ICU for inotrope support. Patient was started on IV milrinone and diuresed. He was also started on IV amiodarone and converted to sinus rhythm. His
volume status, renal function and liver enzymes improved. He underwent cardiac cath on 07/29/24 which showed non-obstructive CAD, PCWP 25. Diuresis continued and he was eventually transitioned to Lasix 40mg PO BID. For stroke prevention in afib
he was initially placed on an IV heparin gtt and transitioned to Eliquis post cath. He is discharged on amiodarone 200mg PO QD. For afterload reduction, he is started on Hydralazine. No b-simone with low HR, he will follow up closely with
cardiology for further GDMT. His liver enzymes downtrended significantly and a repeat CMP will be ordered in 5 days. He is told to hold his statin until directed otherwise by outpatient providers based on these results. Additionally, given renal
function his Wellbutrin dose is decreased.
Patient states he will cut alcohol out.
Time spent on discharge was 40 minutes.
Important imaging findings :
Echo 07/25/2024-EF 10 to 15% with global hypokinesis. Mildly dilated RV with moderate RV hypokinesis. Moderate to severe eccentric MR. Moderate TR with PA pressure 40 to 45 mmHg.
Procedure findings :
Cardiac Cath 07/29/24
CONCLUSIONS
1. No obstructive coronary artery disease.
2. 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
3. Significantly elevated right and left-sided filling pressures with borderline cardiac output.
RECOMMENDATIONS
1. Optimization of goal-directed medical therapy for nonischemic cardiomyopathy with attempt to wean milrinone.
2. Continue aggressive IV diuresis.
3. Aggressive management of cardiovascular risk factors.
4. Wean radial band per protocol.
5. Eventual referral for outpatient cardiac rehab.
Discharge Plan
-
Patient Disposition: Home (Routine Discharge)
Discharge Diagnosis/Procedures: Cardiac cath, heart failure reduced ejection fraction
Condition: Fair
Diet: Low Cholesterol, 2 Gram Sodium and Restrict fluids to 48 oz
Activity: No strenuous activity
Driving Restrictions: No driving for 24 hours
Blood Work: CMP, CBC and Magnesium on Sunday08/08/24 (to be collected by home health)
Other Services: VN and PT
Specialty Instructions: Weigh Daily- Call MD for wt gain/loss 3 lbs overnight/5 lbs in 1 week
Instructions: *DCA Heart Failure Instructions
Stand Alone Forms: DC Instructions- Cath/EP Lab
Referrals:
[facility] [Outside]
Sunil Conteh MD [Active] -
Jenna Green DO [Family Provider] - in less than 1 week
Maddie Clemons CRNP [Specified Professional Personl] - 08/07/24 8:40 am (You have a cardiology follow up appointment at the [facility]. Please call with questions. )
Additional Discharge Medication Instructions: STOP AMLODIPINE
STOP ANTIBIOTICS AND PREDNISONE (completed course in hospital)
HOLD ROSUVASTATIN (for cholesterol) - this will be resumed when liver enzymes are back to normal
You are newly started on:
Lasix 40mg twice a day (to keep fluid off)
Amiodarone 200mg daily (to keep you out of atrial fibrillation)
Eliquis twice a day (to prevent stroke with atrial fibrillation)
Hydralazine 25mg 2x/day (to help control blood pressure and strengthen heart)
Thiamine 100mg daily (vitamins)
Vitamin D3 for low vitamin D level
*Your Wellbutrin dosing is decreased from 300mg daily to 150mg daily after discussions with pharmacy. This is based on your kidney function. Discuss this change with your PCP.
Prescriptions:
New
furosemide 40 mg Tablet
40 mg PO BID AT 0800,1600 Qty: 60 0RF
amiodarone 200 mg Tablet
200 mg PO DAILY Qty: 30 0RF
thiamine HCl (vitamin B1) 100 mg Tablet
100 mg PO DAILY Qty: 30 0RF
cholecalciferol (vitamin D3) 25 mcg (1,000 unit) Tablet
25 mcg PO DAILY Qty: 30 0RF
Eliquis 5 mg Tablet
5 mg PO BID Qty: 60 0RF
bupropion HCl [Wellbutrin XL] 150 mg tablet extended release 24 hr
150 mg PO DAILY Qty: 30 0RF
hydralazine 25 mg tablet
25 mg PO BID Qty: 60 0RF
Continued
Anoro Ellipta 62.5-25 mcg/actuation Blister With Device
1 inh INHALATION DAILY
ipratropium-albuterol 0.5 mg-3 mg(2.5 mg base)/3 mL Solution For Nebulization
3 ml INHALATION R BID
Patient Comments:
started 07/21
Held
rosuvastatin 20 mg Tablet
20 mg PO DAILY
Hold Instructions: Resume on 08/11/24. resume when OK'd by outpatient provider
Discontinued
azithromycin 250 mg Tablet
250 mg PO DAILY
Patient Comments:
started 07/21 take for 5 days
prednisone 20 mg Tablet
40 mg PO DAILY
amlodipine 10 mg Tablet
10 mg PO DAILY
amoxicillin-pot clavulanate 875-125 mg Tablet
1 tab PO Q12H
Patient Comments:
started 07/21 for 7 days
bupropion HCl 150 mg Tablet Extended Release 24 Hr
300 mg PO DAILY
Discharge Orders:
Discharge Patient (As Directed); Ordered 08/02/24
Ordered By: Guadalupe Newton
Care Plan Goals
Care Plan Goals:
Problem: Readiness for enhanced knowledge related to diagnosis and treatment plan
Goal: Understand your diagnosis and treatment plan needs, including medications if applicable.
Instructions: Know your diagnosis, underlying causes and treatment plan options, including medications if applicable. Consult with your health care team to learn about your diagnosis and treatment plan, including medications if applicable.
Discharge Date and Time
Discharge Date/Time: 08/02/24 10:55
Print Language: SERBIAN
--- NOTE | 2024-08-04 10:07 | W.HF.CON ---
Heart Failure
- LV Function
Left ventricular function study result: LV Ejection fraction </= 35%
Ejection Fraction Percentage: 15-20
- ARNI
Heart Failure ARNI Contraindication: Acute Renal Failure, Hypotension
- ACEI/ARB
Patient already on ACEI/ARB: No
Heart Failure ACEI/ARB Contraindication: Acute Renal Failure, Hypotension
- Beta Aadlberto
Patient already on Evidence Based Beta Adalberto: No
Heart Failure Evidence Based Beta Adalberto: Heart Rate < 60 bpm, Hypotension, Mod/Severe Heart Failure
- Mineralocorticord Receptor Antagonist
Patient already on MRA: No
Heart Failure MRA Contraindication: Acute Renal Insufficiency, Hypotension
- SGLT-2 Inhibitor
Patient already on SGLT-2 Inhibitor: No
Heart Failure SGLT-2 Inhibitor Contraindication: Patient Refusal
- Afib Anticoagulation
Patient already on Anticoagulation for Afib: Yes
- NYHA CHF Classification
NYHA CHF Classification Level: Class III - Symptoms w/ min exertion, interferes w/ nml daily activity
- ACC/AHA Stage
ACC/AHA Stage: Stage C: Symptomatic Heart Failure
== END 2024-08-02 10:55 | disposition home health service (06) | DRG 286 ==
LOC: IVU 10:20
PROVIDERS: Hospitalist; Internal Medicine Critical Care Medicine; Internal Medicine Interventional Cardiology; Nurse Practitioner Gerontology; Physician Assistant; Physician Assistant Medical; ADMITTING PHYSICIAN Internal Medicine; ATTENDING PHYSICIAN Student in an Organized Health Care Education/Training Program; CONSULT PHYSICIAN Internal Medicine Cardiovascular Disease; CONSULT PHYSICIAN Internal Medicine Critical Care Medicine; EMERGENCY PHYSICIAN Student in an Organized Health Care Education/Training Program; FAMILY PHYSICIAN Internal Medicine
PROC: B2111ZZ Fluoroscopy of Multiple Coronary Arteries using Low Osmolar Contrast (ICD-10-PCS; 2024-07-29)
PROC: B2161ZZ Fluoroscopy of Right and Left Heart using Low Osmolar Contrast (ICD-10-PCS; 2024-07-29)
PROC: 4A023N8 Measurement of Cardiac Sampling and Pressure, Bilateral, Percutaneous Approach (ICD-10-PCS; 2024-07-29)
DX: I48.0 Paroxysmal atrial fibrillation (principal); I50.21 Acute systolic (congestive) heart failure; J96.01 Acute respiratory failure with hypoxia; R57.0 Cardiogenic shock; J44.1 Chronic obstructive pulmonary disease with (acute) exacerbation; E87.20 Acidosis, unspecified; N17.9 Acute kidney failure, unspecified; E87.1 Hypo-osmolality and hyponatremia; I5A Non-ischemic myocardial injury (non-traumatic); E87.6 Hypokalemia; F10.10 Alcohol abuse, uncomplicated; I11.0 Hypertensive heart disease with heart failure; Z11.52 Encounter for screening for COVID-19; F17.200 Nicotine dependence, unspecified, uncomplicated
CPT/HCPCS: 93308; 36600; 71045; 76700; 80048; 80053; 80061; 82247; 82306; 82607; 82805; 83605; 83735; 83880; 84075; 84100; 84443; 84450; 84460; 84484; 85025; 85027; 85610; 85730; 87641; 87811; 93005; 93306; 93321; 93325; 93460; 94640; 94660; 96365; 96366; 96375; 97110; 97116; 97163; 97167; 97530; 97535; 99152; 99153; 99291; 99406; C1894; J2260; Q9967

== ENCOUNTER 2024-08-04 22:14 | Emergency (ER) | payer OTHER, SELFPAY ==
[2024-08-04 22:19] VITALS: BP 99/67
--- NOTE | 2024-08-05 00:48 | ED.GENMED ---
History of Present Illness
General
Chief Complaint: Bowel Problem
Source: patient
Exam Limitations: none
Time Seen by Provider: 08/05/24 00:00
History of Present Illness
History of Present Illness:
This is a 68 year old male that comes in with c/o rectal pain. States that he was just discharged from the hospital on Sunday. states that he had not had a BM since . States that when he got home on Sunday night his gave him an
enema. and she jammed the tube up his rectum. States that he had such pain and has had pain since. States that he is leaking stool from the rectum now and there has been blood. Denies any fever, chills, chest pain, SOB, abd pain, nausea, vomiting,
headache, dizziness, urinary burning.
Past History
Past History
ED Past Medical History: Arrthythmia (Atrial fib), CAD, CHF, COPD, HTN, Psychiatric (Depression. PTSD) and Other (Hip DJD, AAA)
ED Past Surgical History: Orthopedic (Bilateral total hip replacement)
Social History
Tobacco: Former smoker
Alcohol: Daily (3-4 vodka ( not recently as of 08/04/24))
Drug: Former user
Personal:
Living: with family
Employment: Not employed
Family History
Family History: Hypertension; Negative Early CAD or CAD
Review of Systems
Review of Systems
All Other Systems: ROS reviewed and negative except as documented in HPI and ROS
Constitutional: Reports no symptoms; Denies fever or chills
EENT: Reports no symptoms
Respiratory: Reports no symptoms; Denies cough or trouble breathing
Cardiac: Reports no symptoms; Denies chest pain
ABD/GI: Reports diarrhea, constipated and other (Rectal pain); Denies abdominal pain, nausea or vomiting
: Reports no symptoms; Denies dysuria, frequency or urgency
Musculoskeletal: Reports no symptoms
Skin: Reports no symptoms
Neurological: Reports no symptoms; Denies dizzy or headache
Psychiatric: Reports no symptoms
Phy Exam
General Physical Exam
General Presentation: mild distress
General age: appears stated age
General Skin: warm and dry
General Habitus: elderly
General Mental: alert
General Hydration: appears well hydrated
ENT Exam
ENT Exam: TM's normal, pharynx normal and neck supple
Eye Exam
Eye Exam: EOMI
Cardiovascular Exam
Cardiovascular Exam: regular rate/rhythm, no edema and normal peripheral pulses
Pulmonary Exam
Pulmonary Exam: lungs clear, no respiratory distress, no rales, chest non tender, no crackles, no rhonchi, no wheezing and no cough
Gastrointestinal Exam
Gastrointestinal Exam: non tender, soft, no organomegaly, no pulsatile mass, non distended and other (Hyperactive bowel sounds, Rectal exam with stool removal. Stool brown in color with rectal bleeding noted at anus.)
Musculoskeletal Exam
Musculoskeletal Exam: full ROM and no edema
Skin Exam
Skin Exam: normal color, warm/dry, no rash, no petechia and cyanosis
Psychiatric Exam
Psychiatric Exam: normal mood/affect
Course
Orders/Labs/Results
Orders:
Orders
08/05/24 00:47
CT Abd/pel W Iv And Oral Contr Urgent
Comment:
Reason For Exam: Recta pain after enema
Iohexol [Omnipaque] See Protocol PO NOW STA
08/05/24 01:12
Complete Blood Count/With Diff Urgent
08/05/24 02:09
Comprehensive Metabolic Panel Urgent
Abnormal Lab Results
08/05/24 08/05/24
01:12 02:09
WBC 18.4 H 10^3/uL
(4.8-10.8)
MCV 101.7 H fL
(80.0-94.0)
MCH 35.5 H pg
(27.0-31.0)
Abs Immat Gran (auto) 0.1 H 10^3/uL
(0-0.05)
Absolute Neuts (auto) 15.0 H 10^3/uL
(1.4-6.5)
Absolute Monos (auto) 1.6 H 10^3/uL
(0.1-0.6)
Neutrophils % 81.3 H %
(42.2-75.2)
Lymphocytes % 9.4 L %
(20.5-51.1)
Potassium 3.2 L mmol/L
(3.5-5.1)
Chloride 97 L mmol/L
(98-107)
BUN 45 H mg/dl
(9-20)
Creatinine 1.8 H mg/dL
(0.7-1.3)
Glucose 112 H mg/dl
(70-99)
Total Bilirubin 1.4 H mg/dl
(0.2-1.3)
ALT 161 H U/L
(0-50)
08/05/24 01:12
08/05/24 02:09
Leukocytosis, Anemia. Chronic renal insufficiency, (Cr is elevated when compared to prior labs), Hyperglycemia. Total yayo very slightly elevated. ALT elevation but improved from prior labs.
Vital Signs
Initial and Last Documented VS:
Initial Vital Signs
Temp Pulse Resp BP Pulse Ox
97.9 F 80 18 99/67 97
08/04/24 22:19 08/04/24 22:19 08/04/24 22:19 08/04/24 22:19 08/04/24 22:19
Last Documented Vital Signs
Temp Pulse Resp BP Pulse Ox
97.9 F 56 12 134/84 98
08/04/24 22:19 08/05/24 02:45 08/05/24 02:45 08/05/24 02:00 08/05/24 02:45
MDM/Problems Addressed
Differential Diagnosis Includes:
Constipation. Stercoral colitis. rectal perforation
MDM/Problems Addressed:
This is a 68 year old male that comes in with c/o rectal pain. States that his gave him an enema on Sunday night and she jammed the tube up his rectum. States that he doesn't know what she was thinking. States that he has pain in the rectum
and has not had a BM since last .
Will check lab. get CT scan and disimpacted patient for moderate amount of brown stool.
Back into see patient. States that he is feeling better since some of the stool was removed. Explained that his CT is negative for any obstruction or perforation. However, he is constipated. Will give patient a bottle of Magnesium citrate. Explained
that his WBC are also elevated. Patient is getting repeat labs on Sunday. Patient to follow up with the family doctor. Return with any concerns.
Chronic conditions affecting care: COPD and Other (CHF)
Acute Exacerbation and/or Progression of Chronic Illness:
NA
*Radiology
Radiology exam reviewed: radiology read reviewed (CT night hawk- Appendix is normal. Constipation without bowel obstruction or diverticulitis. Hepatic steatosis. No cholecystitis or pancreatitis. No obstructing renal stones. Extensive
atherosclerotic disease of the aorta and its branches. Status post total bilateral hip arthroplasties. Mild ) and other (CT cont- mild prostate enlargement. No abscess. )
*Pulse Oximetry
Patient hypoxic: no
*EKG
Interpreted by ED Provider?: NA
Rate: EKG- N/A
*Fire Inspector Interpretation
Rate: Fire Inspector- N/A
*Critical Care Note
Total Time (30-74mins, 75-104mins- exclusive of procedures): Not Applicable
ED Attending Note
-
Portions of this chart may have been created with voice recognition software.� Occasional wrong word or��sound alike� substitutions may have occurred due to the inherent limitations of voice recognition software.
Discharge Plan
Departure
Patient Disposition: Home (Routine Discharge)
Date of Disposition: 08/05/24
Time of Disposition: 03:51
Patient with high blood pressure during this ER visit?: Yes
Condition: Good
Covid-19: Not Applicable
Discharge Problem:
Constipation
Instructions: Constipation, Adult (DC), BLOOD PRESSURE
Prescriptions:
No Action
Anoro Ellipta 62.5-25 mcg/actuation Blister With Device
1 inh INHALATION DAILY
ipratropium-albuterol 0.5 mg-3 mg(2.5 mg base)/3 mL Solution For Nebulization
3 ml INHALATION R BID
Patient Comments:
started 07/21
furosemide 40 mg Tablet
40 mg PO BID AT 0800,1600 Qty: 60 0RF
amiodarone 200 mg Tablet
200 mg PO DAILY Qty: 30 0RF
thiamine HCl (vitamin B1) 100 mg Tablet
100 mg PO DAILY Qty: 30 0RF
cholecalciferol (vitamin D3) 25 mcg (1,000 unit) Tablet
25 mcg PO DAILY Qty: 30 0RF
Eliquis 5 mg Tablet
5 mg PO BID Qty: 60 0RF
bupropion HCl [Wellbutrin XL] 150 mg tablet extended release 24 hr
150 mg PO DAILY Qty: 30 0RF
hydralazine 25 mg tablet
25 mg PO BID Qty: 60 0RF
Referrals:
Jenna Green DO [Family Provider] - Follow up in 2-3 days
Activity Restrictions/Additional Instructions:
As discussed, your blood work shows that your white blood cell count is elevated and that you are anemic. Your Kidney function is increasing. Please drink the amount of fluid that you are permitted daily. Your CT shows that you are constipated. You
may use Miralax daily. You have also been given a bottle of Magnesium citrate to take at home. This can take up to 6 hour to work and can cause abdominal cramping. Follow up with the family doctor for recheck. IF YOU HAVE INCREASED PAIN, OR YOU HAVE
ANY OTHER CONCERNS PLEASE RETURN TO THE EMERGENCY ROOM.
Interventions
Interventions:
*Risk Screen - Suicide Last Done: 08/04/24 22:19
*General Assessment Last Done: 08/04/24 22:19
*Neglect/Abuse Screening Last Done: 08/05/24 00:24
ED- Fall Risk Assessment Last Done: 08/05/24 00:24
*ED COVID-19 Vaccine History Last Done: 08/04/24 22:19
ZC-Sawadl-Ctipthduvr Assessment Last Done: 08/05/24 00:24
Discharge Date and Time
Print Language: YORUBA
[2024-08-05] MEDS: OMNIPAQUE 50 ML PO (00:57)
[2024-08-05 01:18] VITALS: BP 127/82
[2024-08-05 01:36] LABS: % Basophils 0.2 % (0-2); % Eosinophils 0.2 % (0-6); % Immature Granulocytes 0.5 % (0-0.5); % Lymphocytes 9.4 % (20.5-51.1); % Monocytes 8.4 % (1.7-9.3); % Neutrophils 81.3 % (42.2-75.2); Absolute Immature Granulocytes 0.1 10^3/uL (0-0.05); Absolute Lymphocytes 1.7 10^3/uL (1.2-3.4); Absolute Monocytes 1.6 10^3/uL (0.1-0.6); Hematocrit 48.1 % (39.0-52.0); Hemoglobin 16.8 g/dL (13.0-18.0); Mean Corp Hgb Conc. 34.9 g/dL (33.0-37.0); Mean Corpuscular Hgb 35.5 pg (27.0-31.0); Mean Corpuscular Volume 101.7 fL (80.0-94.0); Mean Platelet Volume 10.1 fL (7.4-10.4); Nucleated Red Blood Cells % 0 % (-); Platelet Count 194 10^3/uL (130-400); Red Blood Cell Count 4.73 10^6/uL (4.70-6.10); Red Cell Dist. Width 13.3 % (11.5-14.5); White Blood Cell Count 18.4 10^3/uL (4.8-10.8)
[2024-08-05 02:00] VITALS: BP 134/84
[2024-08-05 02:47] LABS: ALT (SGPT) 161 U/L (0-50); AST (SGOT) 41 U/L (17-59); Albumin 4.1 g/dl (3.5-5.0); Alkaline Phosphatase 109 U/L (38-126); Blood Urea Nitrogen 45 mg/dl (9-20); Calcium 9.3 mg/dl (8.4-10.2); Carbon Dioxide 22 mmol/L (22-30); Chloride 97 mmol/L (98-107); Glucose 112 mg/dl (70-99); Potassium 3.2 mmol/L (3.5-5.1); Sodium 136 mmol/L (135-145); Total Bilirubin 1.4 mg/dl (0.2-1.3); Total Protein 6.6 g/dl (6.3-8.2); eGFR 40.49
[2024-08-05] MEDS: CITROMA 300 ML PO (03:58)
[2024-08-05 04:06] VITALS: BP 128/72
[2024-08-05 04:15] VITALS: BP 128/72
== END 2024-08-05 04:15 | disposition home or self-care (01) ==
LOC: EMR 22:14
PROVIDERS: Clinical Nurse Specialist Family Health; EMERGENCY PHYSICIAN Emergency Medicine; FAMILY PHYSICIAN Internal Medicine
DX: K59.00 Constipation, unspecified (principal); I48.91 Unspecified atrial fibrillation; I25.10 Atherosclerotic heart disease of native coronary artery without angina pectoris; I13.0 Hypertensive heart and chronic kidney disease with heart failure and stage 1 through stage 4 chronic kidney disease, or unspecified chronic kidney disease; I50.9 Heart failure, unspecified; N18.9 Chronic kidney disease, unspecified; F43.10 Post-traumatic stress disorder, unspecified; I71.40 Abdominal aortic aneurysm, without rupture, unspecified; D64.9 Anemia, unspecified; D72.829 Elevated white blood cell count, unspecified; F32.A Depression, unspecified; J44.9 Chronic obstructive pulmonary disease, unspecified; Z82.49 Family history of ischemic heart disease and other diseases of the circulatory system; Z87.891 Personal history of nicotine dependence; Z96.643 Presence of artificial hip joint, bilateral
CPT/HCPCS: 99284; 74177; 80053; 85025; Q9967

== ENCOUNTER → 2024-08-11 09:49 | Outpatient (REF) | payer OTHER, SELFPAY ==
[2024-08-11 12:01] LABS: % Basophils 0.4 % (0-2); % Eosinophils 0.8 % (0-6); % Immature Granulocytes 0.3 % (0-0.5); % Lymphocytes 13.9 % (20.5-51.1); % Monocytes 10.7 % (1.7-9.3); % Neutrophils 73.9 % (42.2-75.2); Absolute Basophils 0.1 10^3/uL (0-0.2); Absolute Eosinophils 0.1 10^3/uL (0-0.7); Absolute Lymphocytes 1.8 10^3/uL (1.2-3.4); Absolute Monocytes 1.4 10^3/uL (0.1-0.6); Absolute Neutrophils 9.6 10^3/uL (1.4-6.5); Hematocrit 49.7 % (39.0-52.0); Hemoglobin 17.7 g/dL (13.0-18.0); Mean Corp Hgb Conc. 35.6 g/dL (33.0-37.0); Mean Corpuscular Hgb 36.4 pg (27.0-31.0); Mean Corpuscular Volume 102.3 fL (80.0-94.0); Mean Platelet Volume 10.6 fL (7.4-10.4); Nucleated Red Blood Cells % 0 % (-); Platelet Count 201 10^3/uL (130-400); Red Blood Cell Count 4.86 10^6/uL (4.70-6.10); Red Cell Dist. Width 13.2 % (11.5-14.5)
[2024-08-11 12:12] LABS: ALT (SGPT) 50 U/L (0-50); AST (SGOT) 27 U/L (17-59); Alkaline Phosphatase 88 U/L (38-126); Blood Urea Nitrogen 30 mg/dl (9-20); Calcium 9.9 mg/dl (8.4-10.2); Carbon Dioxide 27 mmol/L (22-30); Chloride 101 mmol/L (98-107); Glucose 73 mg/dl (70-99); Magnesium 2.2 mg/dl (1.6-2.3); Potassium 3.8 mmol/L (3.5-5.1); Sodium 142 mmol/L (135-145); Total Bilirubin 0.9 mg/dl (0.2-1.3); Total Protein 6.6 g/dl (6.3-8.2); eGFR 54.75
== END ==
LOC: HWLAB 09:49
PROVIDERS: ATTENDING PHYSICIAN Internal Medicine
DX: R74.8 Abnormal levels of other serum enzymes (principal); D75.89 Other specified diseases of blood and blood-forming organs; I50.21 Acute systolic (congestive) heart failure
CPT/HCPCS: 36415; 80053; 83735; 85025

== ENCOUNTER 2024-08-18 07:54 | Inpatient (IN) | payer OTHER, SELFPAY ==
[2024-08-16] VITALS (10 sets, daily range): BP systolic 94–110; BP diastolic 66–93; BMI 20.5
--- NOTE | 2024-08-16 11:35 | ED.GENMED ---
History of Present Illness
General
Chief Complaint: Heart Rate Problem
Time Seen by Provider: 08/16/24 11:20
History of Present Illness
History of Present Illness:
Patient is a 69-year-old male with a history of heart failure with reduced ejection fraction, COPD, A-fib on Eliquis who presents to the emergency department with tachycardia and mild lightheadedness. Patient was seen by his visiting nurse
yesterday found to be tachycardic to the 150s and recommended to come to the ER. States he came today because he did not feel, yesterday. He denies any chest pain or shortness of breath. Notes that he feels very dry and thirsty. He was recently
started on Lasix after being admitted for cardiogenic shock and CHF. He states he is 18 pounds less than his typical weight.
Past History
Past History
ED Past Medical History: Arrthythmia (Atrial fib), CAD, CHF, COPD, HTN, Psychiatric (Depression. PTSD) and Other (Hip DJD, AAA)
ED Past Surgical History: Orthopedic (Bilateral total hip replacement)
Social History
Tobacco: Former smoker
Alcohol: Daily (3-4 vodka ( not recently as of 08/04/24))
Drug: Former user
Personal:
Living: with family
Employment: Not employed
Family History
Family History: Hypertension; Negative Early CAD or CAD
Phy Exam
Physical Exam
Physical Exam:
GENERAL APPEARANCE: NAD, well developed/ well nourished
EYES lids/conjunctiva normal
EARS/NOSE/THROAT Mucous membranes dry, uvula midline without oral pharyngeal erythema, exudate or swelling
HEAD/NECK normocephalic atraumatic, neck is supple.
RESPIRATORY respiratory effort normal, speaks in full sentences, no accessory muscle use. Lungs clear to auscultation without rhonchi, wheezes, rales
CARDIAC regular tachycardia, no edema, no GI
ABDOMINAL Soft, ND/NT.
MUSCLES/EXTREMITIES No abnormal range of motion, no swelling.
SKIN Warm, pink and dry. No rashes
NEUROLOGICAL Speech is clear and appropriate. Normal level of consciousness. 5/5 strength in all extremities.
PSYCH Normal mood and affect. Judgement/competence is appropriate
Course
Orders/Labs/Results
Orders:
Orders
08/16/24 11:10
EKG [Electrocardiogram (*1)] Urgent
Reason for Study: Palpitations
EKG- Treatment ONCE
08/16/24 11:22
Cardiac Monitoring- Treatment ONCE
IV Insert/Care/Rem.- Treatment PRN
08/16/24 11:34
Complete Blood Count/With Diff Urgent
Comprehensive Metabolic Panel Urgent
NT-proBNP Urgent
Troponin I Urgent
CR Chest - 2 Views Urgent
Comment:
Reason For Exam: tachycardia
08/16/24 11:35
0.9% Sodium Chloride 250 ml [Nss] 250 ml IV BOLUS
08/16/24 11:40
D-Dimer Urgent
08/16/24 12:10
0.9% Sodium Chloride 250 ml [Nss] 250 ml IV BOLUS
0.9% Sodium Chloride 250 ml [Nss] 250 ml IV BOLUS
08/16/24 12:23
CT Chest Pe Study Urgent
Comment:
Reason For Exam: tachycardia, elevated ddimer
08/16/24 13:56
0.9% Sodium Chloride 250 ml [Nss] 250 ml IV BOLUS
08/16/24 Dinner
Cholesterol Lowering
At Your Request: Full Participation
Cholesterol Lowering: Sodium, 2 Gram
08/16/24 15:11
Admit/Transfer Patient As Directed
Co-Sign Provider:
Level of Care: Observation services
Assign to:: Telemetry
Physician / Group: Negro Eduardo
Diagnosis: Hypovolemia/Acute kidney injury
Reason for Telemetry: CVA/TIA
Date to Stop Telemetry: 08/19/24
Time to Stop Telemetry: 11:00
PRN Pain Medication Management As Directed
May give lesser potent ordered pain med per pt: Yes
preference::
Protocol:: Medication orders for pain may be administered in a
manner that supports deferring to patient preference
when the pt is:
- Requesting an ordered lesser potent pain medication.
Least to most potent pain medications are defined
as: acetaminophen < NSAID < tramadol < opioids
(morphine, oxycodone, hydromorphone).
- Requesting a lesser dose of the same medication IF
ORDERED.
- Requesting a less intrusive route of administration
if both routes are prescribed by the provider (PO <
IV).
08/16/24 15:13
Code Status As Directed
Resuscitation Status: Full Code
08/16/24 16:21
Potassium Chloride [KCl] 20 meq PO DAILY@1600
08/16/24 16:21
Activity As Directed
Activity Level: Ambulate
Vital Signs As Directed
Frequency: Per unit guidelines
DX Deep Vein Thrombosis Video Routine
08/16/24 20:00
Apixaban [Eliquis] 5 mg PO BID
Furosemide [Lasix] 20 mg PO BID
HydrALAZINE [Apresoline] 25 mg PO BID
Ipratropium/Albuterol Sulfate [Duoneb] 3 ml INH R BID
08/17/24 06:00
Basic Metabolic Panel IN AM
08/17/24 08:00
Amiodarone [Pacerone] 200 mg PO DAILY
Bupropion(24Hr)Extended Releas [WELLBUTRIN XL (24 hour extended release)] 150 mg PO DAILY
Cholecalciferol (Vitamin D3) [VITAMIN D3 (cholecalciferol)] 25 mcg PO DAILY
Rosuvastatin Calcium [Crestor] 20 mg PO DAILY
Thiamine HCl [Vitamin B1] 100 mg PO DAILY
Tiotropium [place] 2.5 Mcg [Spiriva Respimat 2.5 Mcg] 2 puff INH R DAILY
08/17/24 18:00
Enoxaparin Sodium [Lovenox] 40 mg SC QPM
08/19/24 11:00
DC Protocol for Telemetry ONCE
Abnormal Lab Results
08/16/24 08/16/24
11:34 11:40
MCV 103.2 H fL
(80.0-94.0)
MCH 34.7 H pg
(27.0-31.0)
D-Dimer 1.16 H ug/mlFEU
(0.00-0.50)
BUN 23 H mg/dl
(9-20)
Creatinine 1.4 H mg/dL
(0.7-1.3)
Glucose 113 H mg/dl
(70-99)
Total Protein 6.2 L g/dl
(6.3-8.2)
08/16/24 11:34
08/16/24 11:34
Vital Signs
Initial and Last Documented VS:
Initial Vital Signs
Temp Pulse Resp BP Pulse Ox
98.5 F 144 16 110/81 99
08/16/24 11:14 08/16/24 11:14 08/16/24 11:14 08/16/24 11:14 08/16/24 11:14
Last Documented Vital Signs
Temp Pulse Resp BP Pulse Ox
97.7 F 140 18 97/66 99
08/16/24 16:49 08/16/24 16:49 08/16/24 16:49 08/16/24 16:49 08/16/24 16:49
*Critical Care Note
Total Time (30-74mins, 75-104mins- exclusive of procedures): Not Applicable
ED Attending Note
ED Attending Note
ED Attending Note:
recent admission for cardiogenic shock and pulmonary edema
was in ICU on milrinone, started on Lasix at that time
he has been on a fluid restriction since and reports increased thirst, states he is about 18lbs press cutter than preadmission
he was seen by the homecare nurse yesterday who found him to be tachycardic to 150s and told him to come to ER
he came in today, feels generally well without symptoms, denies CP or SOB
on arrival patient tachycardic to 140s, appears to be sinus tachycardia
appears comfortable, on room air
CTA is negative for PE or pneumonia or pulm edema
labs with creatinine 1.4 (same as discharge)
trop negative
BNP 6550
possibly related to overdiuresis
HR improving with boluses, still tachycardic around 130
-
Portions of this chart may have been created with voice recognition software.� Occasional wrong word or��sound alike� substitutions may have occurred due to the inherent limitations of voice recognition software.
Discharge Plan
Departure
Patient Disposition: Admit
Date of Disposition: 08/16/24
Time of Disposition: 14:26
Presentation/result/management discussed w/ accepting MD/DO: Hospitalist
Discharge Problem:
Tachycardia
Interventions
Interventions:
*Risk Screen - Suicide Last Done: 08/16/24 11:14
*General Assessment Last Done: 08/16/24 11:14
*Neglect/Abuse Screening Last Done: 08/16/24 11:14
ED- Fall Risk Assessment Last Done: 08/16/24 11:51
*ED COVID-19 Vaccine History Last Done: 08/16/24 11:14
*Nursing Disposition Last Done: 08/16/24 16:14
ED- Cardiac Assessment Last Done: 08/16/24 11:51
ED- Pulmonary Assessment Last Done: 08/16/24 11:51
Discharge Date and Time
Discharge Date/Time: 08/16/24 16:15
[2024-08-16] MEDS: NSS 250 IV ×3 (11:44→14:51)
[2024-08-16 11:47] LABS: % Basophils 0.8 % (0-2); % Eosinophils 1.8 % (0-6); % Immature Granulocytes 0.3 % (0-0.5); % Lymphocytes 22.4 % (20.5-51.1); % Monocytes 7.7 % (1.7-9.3); Absolute Basophils 0.1 10^3/uL (0-0.2); Absolute Eosinophils 0.1 10^3/uL (0-0.7); Absolute Lymphocytes 1.7 10^3/uL (1.2-3.4); Absolute Monocytes 0.6 10^3/uL (0.1-0.6); Absolute Neutrophils 5.1 10^3/uL (1.4-6.5); Hematocrit 48.7 % (39.0-52.0); Hemoglobin 16.4 g/dL (13.0-18.0); Mean Corp Hgb Conc. 33.7 g/dL (33.0-37.0); Mean Corpuscular Hgb 34.7 pg (27.0-31.0); Mean Corpuscular Volume 103.2 fL (80.0-94.0); Mean Platelet Volume 9.5 fL (7.4-10.4); Nucleated Red Blood Cells % 0 % (-); Platelet Count 283 10^3/uL (130-400); Red Blood Cell Count 4.72 10^6/uL (4.70-6.10); Red Cell Dist. Width 13.2 % (11.5-14.5); White Blood Cell Count 7.7 10^3/uL (4.8-10.8)
--- NOTE | 2024-08-16 12:00 | EDRN ---
Pt OOB to BR at this time.
[2024-08-16 12:02] LABS: ALT (SGPT) 32 U/L (0-50); AST (SGOT) 26 U/L (17-59); Albumin 3.7 g/dl (3.5-5.0); Alkaline Phosphatase 87 U/L (38-126); Blood Urea Nitrogen 23 mg/dl (9-20); Calcium 9.4 mg/dl (8.4-10.2); Carbon Dioxide 25 mmol/L (22-30); Chloride 105 mmol/L (98-107); Estimated Creatinine Clearance 46 ml/min; Glucose 113 mg/dl (70-99); Potassium 3.7 mmol/L (3.5-5.1); Sodium 143 mmol/L (135-145); Total Bilirubin 0.6 mg/dl (0.2-1.3); Total Protein 6.2 g/dl (6.3-8.2); eGFR 54.41
[2024-08-16 12:14] LABS: NT-proBNP 6550 pg/ml; Troponin I < 0.012 ng/ml
[2024-08-16 12:17] LABS: D-Dimer 1.16 ug/mlFEU (0.00-0.50)
--- NOTE | 2024-08-16 12:48 | EDRN ---
Pt OOB to BR at this time.
--- NOTE | 2024-08-16 12:52 | EDRN ---
Pt back to bed from BR and HR remains in 140's.
--- NOTE | 2024-08-16 14:32 | HPS.HSE ---
Family Physician
-
Family Physician: Jenna Green DO
Chief Complaint
-
Tachycardia
History of Present Illness
Patient is a 69-year-old male with past medical history significant for hypertension, hyperlipidemia, atrial-fibrillation, HFrEF, and COPD who presented to [place] ED for evaluation of elevated heart rate at recommendation of visiting nurse.
Patient reports he had visiting nurse come yesterday and recommended he come to hospital for tachycardia in the 150s. He did not want to come for evaluation yesterday but elected to come today. Patient presented tachycardic in the 140s, associated
with mild lightheadedness. Denies any fever, chills, coguh, shortness of breath, chest pain, constipation, diarrhea or urinary symptoms. He reports since starting diuretics he has lost 18 pounds.
Medical History
Past Medical History
Past Medical History: Reports Other
Additional Past Medical History:
hypertension
hyperlipidemia
atrial-fibrillation
HFrEF
COPD
Non-obstructive CAD
Mitral regurgitation\\
Alcohol dependency
AAA
Past Surgical History: Reports Other
Additional Past Surgical History:
bilateral hip replacement
right rotator cuff
cardiac cath
Social History
Tobacco: Former Smoker (quit 2-3 months ago, has 50 pack year history)
Alcohol: Daily (stopped drinking approximately 3 weeks ago at previous admission)
Drug: None
Personal:
Living: With Family
Employment: Retired
Family History
Family History: Not pertinent
Allergies / Home Medications
Allergies reflects when Allergies were last updated in [facility].
Home Medications with original date entered in [facility]
Allergy/Medication List:
Allergies
Allergy/AdvReac Type Severity Reaction Status Date / Time
No Known Allergies Allergy Verified 08/16/24 11:15
Home Medications
ipratropium 0.5 mg-albuterol 3 mg (2.5 mg base)/3 mL nebulization soln 3 ml inhalation R BID Lung/Breathing Issues 07/25/24
umeclidinium 62.5 mcg-vilanterol 25 mcg/actuation powdr for inhalation (Anoro Ellipta) 1 inh inhalation R DAILY Lung/Breathing Issues 07/25/24
amiodarone 200 mg tablet 200 mg PO DAILY #30 tabs 08/02/24
apixaban 5 mg tablet (Eliquis) 5 mg PO BID #60 tabs 08/02/24
cholecalciferol (vitamin D3) 25 mcg (1,000 unit) tablet 25 mcg PO DAILY #30 tabs 08/02/24
hydralazine 25 mg tablet 25 mg PO BID #60 tabs 08/02/24
thiamine HCl (vitamin B1) 100 mg tablet 100 mg PO DAILY #30 tabs 08/02/24
bupropion HCl 150 mg 24 hr tablet, extended release (Wellbutrin XL) 150 mg PO UD 08/16/24
furosemide 40 mg tablet 20 mg PO BID 08/16/24
potassium chloride 20 mEq tablet,extended release 20 meq PO DAILY@1600 08/16/24
rosuvastatin 20 mg tablet (Crestor) 20 mg PO DAILY 08/16/24
Review of Systems
-
Constitutional: Reports No Symptoms and Other ('feeling dry')
EENT: Reports No Symptoms
Respiratory: Reports No Symptoms
Cardiac: Reports Other (tachycardia)
Abdomen/GI: Reports No Symptoms
: Reports No Symptoms
Musculoskeletal: Reports No Symptoms
Skin: Reports No Symptoms
Neurological: Reports No Symptoms
Endocrine: Reports No Symptoms
Hematologic/Lymphatic: Reports No Symptoms
Psych: Reports No Symptoms
Physical Exam
Vital Signs
Vital Signs
Temp Pulse Resp BP Pulse Ox
98.5 F 137 31 94/82 97
08/16/24 11:14 08/16/24 13:15 08/16/24 13:15 08/16/24 13:00 08/16/24 13:15
Physical Exam
General: Well Developed, Well Nourished, No Apparent Distress, Comfortable and Conversant
HEENT: NormoCephalic, Moist mucous membranes, Atraumatic, PERRLA, [place] Conjunctivae, Nose Appears Normal and Ears Appear Normal
Respiratory: Clear and Non Labored Respirations; No Wheezes, Rales, Rhonchi or Crackles
Cardiac: S1/S2, Regular Rhythm and Tachycardia; No Murmur, Rub or Gallop
Breast: Deferred by me
GI: Soft, Non Tender, Non Distended and Normal Bowel Sounds; No Organomegaly
Rectal: Deferred by Provider
Genito-urinary: Deferred by me
Musculoskeletal: No Clubbing, No Cyanosis and No Edema
Skin: Warm and IV/Catheter Site; No Rash
Neuro: Awake, Alert, AO x 3 and Nonfocal/grossly intact
Hematologic/Lymphatic: No Lymphadenopathy
Psych: Calm and Intact Judgment/Insight
Laboratory Results
-
08/16/24 11:34
08/16/24 11:34
Laboratory Results
Total Bilirubin 0.6 mg/dl (0.2-1.3) 08/16/24 11:34
AST 26 U/L (17-59) 08/16/24 11:34
ALT 32 U/L (0-50) 08/16/24 11:34
Alkaline Phosphatase 87 U/L (38-126) 08/16/24 11:34
Troponin I < 0.012 ng/ml 08/16/24 11:34
Data Reviewed
-
Diagnostic Radiology: Report Reviewed by me (CXR: No acute cardiopulmonary process)
CT Scan: Report Reviewed by me (Chest CT: No findings to confirm central pulmonary embolism. Moderate centrilobular emphysema again seen, likely with slight progression in comparison to relative remote prior study. Stable small nodule along the
left major fissure, likely benign.)
Medical Tests (Nuc Med, Echo, EKG etc): Report Reviewed by me (EKG: SINUS TACHYCARDIA )
Lab Data: Labs Reviewed by me (BUN 23, Creat 1.4, BNP 6550)
Impression/Plan
-
IMPRESSION/PLAN:
#hypovolemia vs. acute kidney injury
likely dehydrated from over diuresis
recent hospitalization for CHF with 18 pound weight loss
BUN 30, Creat 1.4
tachycardia 140-150s
- Admit to tele for observation
- IVF bolus given in ED
- Encourage PO fluid intake
- monitor VS
#hypertension
hypotension in ED
- continue hydralazine with parameters
#hyperlipidemia
#Non-obstructive CAD
- continue rosuvastatin
#atrial-fibrillation
EKG: Sinus Tachycardia
- continue amiodarone, and apixaban
#HFrEF
BNP 6550
- continue furosemide, and potassium chloride
#COPD
- continue Ellipta and ipratropium-albuterol PRN
#Alcohol dependency
Drank daily 3-4 drinks nightly, last drink 3 weeks ago, no previous withdraw symptoms
- monitor for withdraw
#Mitral regurgitation
#AAA
Code Status: Full Code
DVT Prophylaxis: Lovenox Sq
--- NOTE | 2024-08-16 14:45 | EDRN ---
Diane DISC RECORDIST w/ hospitalist group in room w/ pt at this time. HR is now in 130's, still rapid ST.
--- NOTE | 2024-08-16 16:02 | W.PN.UPDATE ---
Update Note
Progress Note Update
Attending Note:
Patient seen, examined and interviewed independently
69-year-old man coming in for evaluation of elevated heart rate. He had visiting nurse come yesterday and recommended that he come to hospital because of a tachycardia in the 150s. Today he came in tachycardic in the 140s, associated with mild
lightheadedness. He denies any fever, chills, coguh, shortness of breath, chest pain, constipation, diarrhea or urinary symptoms. He reports since starting diuretics he has lost 18 pounds. At the time of my interview, he was comfortable and had no
acute complaints.
Past Medical History
Past Medical History: Reports Other
Additional Past Medical History:
hypertension
hyperlipidemia
atrial-fibrillation
HFrEF
COPD
Non-obstructive CAD
Mitral regurgitation\\
Alcohol dependency
AAA
Past Surgical History: Reports Other
Additional Past Surgical History:
bilateral hip replacement
right rotator cuff
cardiac cath
Physical Exam
General: Well Developed, Well Nourished, No Apparent Distress, Comfortable and Conversant
HEENT: NormoCephalic, Moist mucous membranes, Atraumatic,
Respiratory: Clear
Cardiac: S1/S2, Regular Rhythm and Tachycardia;
Psych: Calm and Intact Judgment/Insight
IMPRESSION/PLAN:
1. hypovolemia vs. acute kidney injury - likely dehydrated from over diuresis, recent 18 pound weight loss
Admit to tele for observation
IVF bolus given in ED
Subsequenty, will Encourage PO fluid intake
Please see mid level note for details on:
hypertension
hyperlipidemia
Non-obstructive CAD
atrial-fibrillation
HFrEF
COPD
Alcohol dependency
Mitral regurgitation
AAA
[2024-08-16] MEDS: KCL 20 MEQ PO (16:38)
--- NOTE | 2024-08-16 17:46 | PTCARENOTE ---
Pt arrived from ED @16:30. Ambulated from stretcher to bed w/o incident. Pt AAOx3, VSS, HR 130-140s, BP 97/66, no c/o lightheadedness/dizziness. Tele monitor applied, pt in sinus tach. Call mtz and belongings within reach.
[2024-08-16] MEDS: APRESOLINE 25 MG PO (20:41)
[2024-08-16] MEDS: ELIQUIS 5 MG PO (20:42)
[2024-08-16] MEDS: LASIX 20 MG PO (23:09)
[2024-08-17] VITALS (14 sets, daily range): BP systolic 86–117; BP diastolic 63–98
[2024-08-17 03:56] LABS: Blood Urea Nitrogen 18 mg/dl (9-20); Calcium 8.8 mg/dl (8.4-10.2); Carbon Dioxide 26 mmol/L (22-30); Chloride 103 mmol/L (98-107); Estimated Creatinine Clearance 52 ml/min; Glucose 93 mg/dl (70-99); Magnesium 1.8 mg/dl (1.6-2.3); Potassium 3.7 mmol/L (3.5-5.1); Sodium 141 mmol/L (135-145); eGFR > 60.00
[2024-08-17] MEDS: STRIVERDI RESPIMAT 2 PUFF INH (07:38)
[2024-08-17] MEDS: SPIRIVA RESPIMAT 2.5 MCG 2 PUFF INH (07:38)
--- NOTE | 2024-08-17 07:44 | W.PN.HOSP.TC ---
Today's Communication/Plan
-
Transfer to IVU for amio gtt and likely cardioversion Sunday
NPO after midnight
diuresis rate rhythm control as per Cardio
discontinue home hydralazine
cont Eliquis
Assessment / Plan
Assessment / Plan
Physical Exam
General: no acute distress appears comfortable at this time
HEENT: NormoCephalic, Moist mucous membranes, Atraumatic, PERRLA
Respiratory: Clear and Non Labored Respirations; No Wheezes, Rales, Rhonchi or Crackles
Cardiac: S1/S2, Tachycardia. No murmurs rubs gallops
GI: Soft, Non Tender, Non Distended and Normal Bowel Sounds; No Organomegaly
Musculoskeletal: No Clubbing, No Cyanosis and No Edema
Neuro: AOx3
Psych: Calm
69M w/ pmhx including HTN, HLD, pAfib, HFrEF, and COPD recommended by visiting nurse for ED evaluation d/t significant tachycardia 150s though relatively asymptomatic, reported mild lightheadedness but denied palpitations shortness of breath or
chest pain. Admitted for further evaluation/treatment, Cardio eval concerning for atrial tachycardia vs aflutter, patient subsequently was transferred to IVU for amio gtt and plans for cardioversion Sunday.
#Atrial Tachycardia vs Aflutter
#Euvolemic, MT on admission ruled out (mild Cr elevation on admission 1.4 near baseline 1.2- 08/05 1.8 prior to admission since resolved)
#paroxysmal atrial fibrillation
recent hospitalization for CHF with 18 pound weight loss
tachycardia 140-150s
Admitted to tele transferred to IVU for amio gtt as per Cardio
received small IVF bolus given in ED in case symptoms driven by hypovolemia (unlikely at this time)
IV lopressor prn
Cardio eval appreciated
-PO amio switched to gtt
-home Lasix 20 mg BID reduced to daily
-Home Hydralazine discontinued
-Planned start on Coreg 3.125 mg BID and lisinopril (planned for transition to Entresto) on hold at this time d/t concerns relative hypotension
-Farxiga added
-NPO after midnight for Cardioversion
#Hx hypertension
BP currently low normotensive
home hydralazine discontinued as above
#hyperlipidemia
#Non-obstructive CAD
- continue rosuvastatin
#HFrEF
BNP 6550
- continue furosemide reduced to 20 mg daily as above
-cont potassium supplementation, hold if off diuretics or K>5, could consider discontinuing if K consistently >4
#COPD
- continue Ellipta and ipratropium-albuterol PRN
#Alcohol dependency
Drank daily 3-4 drinks nightly, last drink 3 weeks ago, no previous withdraw symptoms
- monitor for withdraw
#Mitral regurgitation
#AAA
Code Status: Full Code
DVT Prophylaxis: Lovenox Sq
Discussed with patient, patient's [place], and Cardiology
I spent a total of 50 minutes with the patient or on the floor. More than 50% of this time involved counseling and coordination of care.
Anticipated Discharge: 24 - 48 hours
Subjective/Interval History
-
Date of Service: August 17, 2024
Seen and examined at bedside in no acute distress resting comfortably in bed. Overall reports feeling well despite tachycardia. Denies palpitations lightheadedness headache chest pain.
Objective Data
-
Labs:
Laboratory Results
08/17/24
03:07
Sodium 141
Potassium 3.7
Chloride 103
Carbon Dioxide 26
BUN 18
Creatinine 1.2
Glucose 93
Calcium 8.8
Vital Signs:
Vital Signs
Temp Pulse Resp BP Pulse Ox
98.0 F 142 18 100/66 98
08/17/24 03:16 08/17/24 07:41 08/17/24 07:41 08/17/24 03:16 08/17/24 07:41
I&O
08/16/24 08/17/24 08/18/24
06:59 06:59 06:59
Intake Total 1140 / 1140
Output Total 200 / 200
Balance 940 / 940
[2024-08-17] MEDS: ELIQUIS 5 MG PO ×2 (08:15→19:25)
[2024-08-17] MEDS: LASIX 20 MG PO (08:15)
[2024-08-17] MEDS: PACERONE 200 MG PO (08:15)
[2024-08-17] MEDS: VITAMIN D3 (cholecalciferol) 25 MCG PO (08:15)
[2024-08-17] MEDS: CRESTOR 20 MG PO (08:15)
[2024-08-17] MEDS: WELLBUTRIN XL (24 hour extended release) 150 MG PO (08:15)
[2024-08-17] MEDS: VITAMIN B1 100 MG PO (08:20)
[2024-08-17] MEDS: LOPRESSOR 5 MG IV (09:09)
[2024-08-17] MEDS: APRESOLINE 25 MG PO (09:10)
--- NOTE | 2024-08-17 10:03 | CON.CAR ---
Consultation
Consultation Request
Date/Time Consultation Requested: 08/17/24
Date/Time Consultation Performed: 08/17/24
Requesting Provider: Dr. Rosenbaum
Performing Provider: Dr. Perez
Reason for Consultation: Tachycardia
Medical History
-
Chief Complaint: Tachycardia
History of Present Illness:
I had the pleasure to see Lázaro Mcmahan for evaluation of tachycardia. Lázaro is a 69-year-old gentleman who recently had an 8-day hospitalization [facility] from July 25-2023 for acute systolic heart failure with cardiogenic shock.
He had a prior history of hypertension, hyperlipidemia, COPD with previous history of alcohol use and ongoing tobacco dependence with recent attempts to quit as of April. When he presented to the emergency department back on July 25 he was
found to be in rapid atrial fibrillation with hypoxic respiratory failure requiring BiPAP with a proBNP of 21,000 in addition to acute renal insufficiency with a creatinine of 1.7 and shock liver. His 2D echocardiogram showed an ejection fraction
of 10 to 15% with global hypokinesis with RV dysfunction and moderate to severe eccentric mitral regurgitation as well as moderate tricuspid regurgitation and pulmonary hypertension with estimated pulmonary pressures 40-45 mmHg. He underwent a
cardiac catheterization July 29, 2024 with nonobstructive coronary artery disease [20% ostial left main stenosis, 40% ostial diagonal branch stenosis, 20-30% proximal circumflex stenosis. 30% OM1 stenosis] with an anomalous takeoff of the left
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 Right heart catheterization also noted significantly elevated right and left-sided filling pressures with with pulmonary capillary wedge pressure 25 and borderline cardiac index at 2.1. He required IV
milrinone which was eventually weaned off by July 31 as goal-directed medical therapy was slowly introduced. He fortunately converted to sinus rhythm with IV amiodarone which was dose reduced due to prolonged QT. At time of discharge home with
[facility] he was transition to Lasix 40 mg p.o. twice daily, Eliquis 5 mg twice daily, amiodarone 200 mg daily, hydralazine 25 mg twice daily and was seen in the office for follow-up on August 07, 2021; No changes were made to his medical therapy at
this time. He states that since discharge he has refrain from smoking and drinking and open trying to follow a low-salt diet. He has noted ongoing weight loss and has felt lightheaded and 'dry '. He has been compliant with his medications and
denies missed doses of Eliquis anticoagulation. He denies chest pain or pressure, palpitations, or edema. He denies orthopnea. He has had no fevers or chills. No bleeding. SUZANNE notified our office August 15 due to low blood pressures and
tachycardia with heart rates in the 130s 160s which was fortunately asymptomatic. Lasix was reduced to 40 mg in the morning and 20 mg in the evening. He states that he declined ER evaluation as he was otherwise feeling well. When visiting nurses
returned on Sunday and noted that he was still tachycardic, he agreed to come to the ER for evaluation. In the emergency room he was given some normal saline fluid boluses as well as IV Lopressor with no significant movement of heart rates. He
remains in tachycardia in the 130s�140s overnight but fortunately is asymptomatic. He denies chest pain or pressure, shortness of breath, weight gain, edema, or bleeding. No syncope/near syncope but does occasionally have lightheadedness. He
denies missed doses of medications including Eliquis which was initiated in the hospital on July 31. Previous to this he had been on IV heparin with interruption of anticoagulation for cardiac catheterization on July 29.. He is worried
that current outpatient dose of Lasix is too much for him.
PMHx:
Nonischemic cardiomyopathy, EF 10-15%, diagnosed 07/25/24
Dilated RV with moderate hypokinesis/ mild pulmonary HTN
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
Moderate to severe MR on echocardiogram
Recent admission for cardiogenic shock with ARF/shock liver and BiPAP requiring milrinone gtt
Atrial fibrillation with rapid ventricular response, spontaneously converted to sinus rhythm
Non-NH myocardial ischemic troponin elevation
Hypertension
Hyperlipidemia
COPD
Tobacco abuse 1ppd for 40 years, quit 07/2024
Daily alcohol use, quit 07/2024
Bilateral hip replacements and shoulder replacement
Echo 07/31/2018: EF 55 to 60%. Mild concentric LVH. Mild MR, mild TR, PAP 15 to 20 mmHg
Echo 07/25/2024: LVEF 10 to 15% with global hypokinesis. Mildly dilated right ventricle with moderate RV hypokinesis. Moderate to severe eccentric MR. Moderate TR with PA pressure 40 to 45 mmHg.
ECHO 08/01/24: EF 15 to 20%, global hypokinesis, probable inferior, mid septal, mid anterior, apical akinesis, moderate and possibly severe MR
RHC 07/29/24:
RA (m) : 10
RV (s/d,m) : 45/8, 14
PA (s/d, m) : 46/19, 29
PCWP (m) : 25
PA saturation: 63.5% on 2 L of oxygen via nasal cannula
AO saturation: 90.8% on 2 L of oxygen via nasal cannula
RA saturation: 62.4% on 2 L of oxygen via nasal cannula
Cardiac Output : 3.91 L/min
Cardiac Index : 2.1 L/min/m-2
Systemic vascular resistance: 1310 dsc^(-5)
Pulmonary vascular resistance:1.02 amato unit
Heart rate: 64 beats minute
AO (s/d) : 92/57
LV (s/d) : 92/12
LVEDP : 28
C 07/29/24:
DOMINANCE: Right
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 The left coronary artery extends into the LAD. There is 20% ostial stenosis
LEFT ANTERIOR DESCENDING: The left coronary artery is a medium to large caliber vessel which gives rise to 1 major diagonal branch as it courses to the anterior interventricular groove towards the apex. There is mild diffuse atherosclerotic plaque.
Ostial diagonal branch has eccentric 40% stenosis
CIRCUMFLEX: The left circumflex artery has an anomalous takeoff from the right coronary cusp just below the RCA takeoff and was selectively engaged using a 6 [place] MPA-1 diagnostic catheter. There is 20 to 30% stenosis in the proximal portion.
OM1 has moderate degree of tortuosity with 30% stenosis diffusely in the proximal portion.
RIGHT CORONARY ARTERY: The right coronary artery is a medium to large caliber, dominant vessel which gives rise to the right posterior descending artery and the right posterolateral system. There is mild to moderate degree of tortuosity in the
proximal portion. There is mild diffuse atherosclerotic plaque.
Past Medical History
Past Medical History: Other (See HPI)
Past Surgical History: Other (Right total hip replacement 2008, left RCR 2014. Left hip replacement 2018. Left heart catheterization July 29, 2024)
Social History
Tobacco: Smoker (1 pack a day for 40 years)
Alcohol: Chronic Alcoholic
Drug: None
Personal:
Living: With Family
Family History
Family History: Reviewed & Not Pertinent
Allergies / Home Medications
Allergy/AdvReac Type Severity Reaction Status Date / Time
No Known Allergies Allergy Verified 08/16/24 11:15
�Medication �Instructions �Recorded �Confirmed �Type
ipratropium 0.5 mg-albuterol 3 mg 3 ml inhalation R BID 07/25/24 08/16/24 History
(2.5 mg base)/3 mL nebulization Lung/Breathing Issues
soln
umeclidinium 62.5 mcg-vilanterol 1 inh inhalation R DAILY 07/25/24 08/16/24 History
25 mcg/actuation powdr for Lung/Breathing Issues
inhalation (Anoro Ellipta)
amiodarone 200 mg tablet 200 mg PO DAILY #30 tabs 08/02/24 08/16/24 Rx
apixaban 5 mg tablet (Eliquis) 5 mg PO BID #60 tabs 08/02/24 08/16/24 Rx
cholecalciferol (vitamin D3) 25 25 mcg PO DAILY #30 tabs 08/02/24 08/16/24 Rx
mcg (1,000 unit) tablet
hydralazine 25 mg tablet 25 mg PO BID #60 tabs 08/02/24 08/16/24 Rx
thiamine HCl (vitamin B1) 100 mg 100 mg PO DAILY #30 tabs 08/02/24 08/16/24 Rx
tablet
bupropion HCl 150 mg 24 hr tablet, 150 mg PO UD Mental Health/Anxiety 08/16/24 08/16/24 History
extended release (Wellbutrin XL)
furosemide 40 mg tablet 20 mg PO BID Fluid 08/16/24 08/16/24 History
Retention/Swelling
potassium chloride 20 mEq 20 meq PO DAILY@1600 Supplement 08/16/24 08/16/24 History
tablet,extended release
rosuvastatin 20 mg tablet (Crestor) 20 mg PO DAILY High Cholesterol 08/16/24 08/16/24 History
Review of Systems
-
History Source: Patient
All other systems: Negative unless noted
Constitutional: No Symptoms
EENT: No Symptoms
Respiratory: No Symptoms
Cardiac: Palpitations
Abdomen/GI: No Symptoms
: No Symptoms
Musculoskeletal: No Symptoms
Neurological: No Symptoms
Endocrine: No Symptoms
Hematologic/Lymphatic: No Symptoms
Physical Exam
Vital Signs
Temp Pulse Resp BP Pulse Ox
98 F 139 18 107/74 98
08/17/24 08:09 08/17/24 09:10 08/17/24 08:09 08/17/24 09:10 08/17/24 08:09
Lab Results
08/16/24 11:34
08/17/24 03:07
Troponin I < 0.012 ng/ml 08/16/24 11:34
Gxy-D-Imlnlnuffoo Pept 6550 pg/ml 08/16/24 11:34
Physical Exam
General: Well Developed, Well Nourished and No Apparent Distress
HEENT: Normocephalic, Anicteric and Moist Mucous Membranes
Respiratory: Clear and Non Labored Respirations
Cardiac: S1/S2, Regular Rhythm (tachycardia) and Murmur (2/6 SM); Negative Peripheral Edema or Calf Tenderness
Breast: Deferred by me
GI: Soft, Non Tender, Non Distended and Normal Bowel Sounds
Rectal: Deferred by Provider
Musculoskeletal: No Edema
Skin: Warm; Negative Rash
Neuro: AO x 3 and Nonfocal/Grossly Intact
Psych: Calm
Impression / Plan
-
Chief Dietitian: Appointment with Dr. De La Cruz 10/07/24
Impression:
Tachyarrhythmia likely atrial tachycardia possibly atrial flutter
Nonischemic cardiomyopathy, EF 10-15%, diagnosed 07/25/24
Dilated RV with moderate hypokinesis/ mild pulmonary HTN
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
Moderate to severe MR on echocardiogram
Recent admission for cardiogenic shock with ARF/shock liver and BiPAP requiring milrinone gtt
Atrial fibrillation with rapid ventricular response, spontaneously converted to sinus rhythm, New diagnosis 07/25/2024
Non-NH myocardial ischemic troponin elevation
Hypertension
Hyperlipidemia
COPD
Tobacco abuse 1ppd for 40 years, quit 07/2024
Daily alcohol use, quit 07/2024
Bilateral hip replacements and shoulder replacement
Echo 07/31/2018: EF 55 to 60%. Mild concentric LVH. Mild MR, mild TR, PAP 15 to 20 mmHg
Echo 07/25/2024: LVEF 10 to 15% with global hypokinesis. Mildly dilated right ventricle with moderate RV hypokinesis. Moderate to severe eccentric MR. Moderate TR with PA pressure 40 to 45 mmHg.
ECHO 08/01/24: EF 15 to 20%, global hypokinesis, probable inferior, mid septal, mid anterior, apical akinesis, moderate and possibly severe MR
[facility] 07/29/24:
RA (m) : 10
RV (s/d,m) : 45/8, 14
PA (s/d, m) : 46/19, 29
PCWP (m) : 25
PA saturation: 63.5% on 2 L of oxygen via nasal cannula
AO saturation: 90.8% on 2 L of oxygen via nasal cannula
RA saturation: 62.4% on 2 L of oxygen via nasal cannula
Cardiac Output : 3.91 L/min
Cardiac Index : 2.1 L/min/m-2
Systemic vascular resistance: 1310 dsc^(-5)
Pulmonary vascular resistance:1.02 amato unit
Heart rate: 64 beats minute
AO (s/d) : 92/57
LV (s/d) : 92/12
LVEDP : 28
LHC 07/29/24:
DOMINANCE: Right
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 The left coronary artery extends into the LAD. There is 20% ostial stenosis
LEFT ANTERIOR DESCENDING: The left coronary artery is a medium to large caliber vessel which gives rise to 1 major diagonal branch as it courses to the anterior interventricular groove towards the apex. There is mild diffuse atherosclerotic plaque.
Ostial diagonal branch has eccentric 40% stenosis
CIRCUMFLEX: The left circumflex artery has an anomalous takeoff from the right coronary cusp just below the RCA takeoff and was selectively engaged using a 6 [place] MPA-1 diagnostic catheter. There is 20 to 30% stenosis in the proximal portion.
OM1 has moderate degree of tortuosity with 30% stenosis diffusely in the proximal portion.
RIGHT CORONARY ARTERY: The right coronary artery is a medium to large caliber, dominant vessel which gives rise to the right posterior descending artery and the right posterolateral system. There is mild to moderate degree of tortuosity in the
proximal portion. There is mild diffuse atherosclerotic plaque.
Plan:
Tachyarrhythmia with history of atrial fibrillation July 25, 2024hythm appears to be in atrial tachycardia, possibly atrial flutter
-Patient is asymptomatic with stable hemodynamics but given cardiomyopathy would prefer to restore sinus rhythm
-Will change oral amiodarone to IV amiodarone but follow QT closely. Patient had prolonged QTc last admission during amiodarone load. QTc currently 448 ms. EKG August 07, 2024 in sinus rhythm in our office with QTc 459 ms.
-Start carvedilol 3.125 mg twice daily with hold parameters
-Continue oral anticoagulation
-TSH 07/25/2024 within normal limit
-If he does not convert can consider cardioversion on Sunday. Will review adequacy of anticoagulation to determine whether or not he will need a transesophageal echocardiogram as he is near 3 weeks of Eliquis which was started on July 31
however had IV heparin drip prior with brief interruption at the time of cardiac catheterization on July 29.
Nonischemic cardiomyopathy with ejection fraction 10 to 15% with RV dysfunction diagnosed July 25, 2024, with moderate to severe mitral regurgitation
-Fortunately he appears compensated at this time with ongoing weight loss and improved renal function and LFTs. Weight on admission 139 pounds
-proBNP 6550 which is improved from 9540 on July 29, 2024 and 21,000 at time of admission July 25, 2024
-Will add low-dose carvedilol, transition hydralazine to low-dose lisinopril, and add Farxiga. Farxiga was checked by case management last admission, $47
-Will reduce Lasix to 20 mg once daily and monitor volume status closely
-If able could add Aldactone prior to discharge. Could consider outpatient transition from lisinopril to Entresto if blood pressure allows.
-Eventual repeat echocardiogram to reassess heart function and mitral regurgitation
Nonobstructive coronary artery disease�continue statin therapy with plan for repeat lipid profile as an outpatient. LDL estimation 07/31/2024 was 81 mg/dL, HDL 81 mg/dL, triglycerides 95 mg/dL. Total cholesterol 181 mg/dL.
Hyperglycemia with hemoglobin A1c in 2022 not elevated with no recent check. Will add on hemoglobin A1c to morning labs
Vitamin D deficiency, 14.6 July 28, 2024�would continue replacement therapy
Tobacco dependence�he reports that he has quit smoking since his recent hospitalization
Alcoholism�he reports that he is quit drinking since his last hospitalization
Discussed with hospitalist
Data Reviewed
-
EKG: Tracing Personally Visualized and interpreted
Radiology: Report Reviewed by me
Medical Tests (Nuc Med, Echo etc): Report Reviewed by me
Labs: Labs Reviewed by me
Old Records: Reviewed
--- NOTE | 2024-08-17 10:17 | CM ---
CM following re: discharge planning.
Reviewed pt's chart, met with pt.
Pt is a 69 year old male, admitted with OBS status and primary dx of MT. OBS status explained to the pt, pt expressed understanding, declined to sign, BORDEN letter placed on chart, pt has a copy.
Pt reports he lives with spouse and a son with his family in a [place], has 2 supportive sons and a stepson. Pt described himself as independent in all areas [employer]. Pt reports he has a cane and a walker at them and uses them as needed.
Pt reports he is active with [facility].
PCP is Dr. Green
Pharmacy: [facility].
D/C plan: home with [facility] and family support
CM will follow with discharge plan updates as hospitalization progresses
[2024-08-17 12:43] LABS: Iron 104 ug/dl (49-181)
[2024-08-17 12:52] LABS: Percent Saturation 42 % (20-50); Total Iron Binding Capacity 242 ug/dl (261-462)
[2024-08-17 13:49] LABS: Folate 12.4 ng/ml (2.76-20); Vitamin B12 663 pg/ml (239-931)
[2024-08-17] MEDS: KCL PO (15:52)
[2024-08-17] MEDS: CORDARONE 518 MG IV (17:22)
--- NOTE | 2024-08-17 17:42 | PTCARENOTE ---
Pt transferred to IVU for amiodarone drip, telemetry transferred, report given to nurse receiving patient
--- NOTE | 2024-08-17 18:09 | PTCARENOTE ---
Rec'd pt from 3W; Pt AAOx3 & able to ambulate unassisted from bed to bed. cardiac monitor technician switched to ours & sign off completed w/3W RN, Dorene Pickard. Report given at nurses station after transfer & after new IV line placed in pt's L FA & IV
Amiodarone started as ordered. Pt's VS stable on arrival w/BP 106/83. HR in the 130's & pt is ST on telemetry monitoring. Pt asymptomatic w/rapid HR. Pt assisted w/calling for dinner. Oriented to . Call mtz within reach. Plan of care ongoing.
[2024-08-17] MEDS: NSS 250 IV (21:00)
--- NOTE | 2024-08-17 22:59 | PTCARENOTE ---
Received patient at change of shift. ST on the monitor, HR in the 130s. BP 86/68 and 83/68, pt is asymptomatic, MARKET SUPERINTENDENT Carmelita Sanderson made aware. Coreg held. NSS bolus ordered and administered as per NOV. Amio infusing as per protocol, see MAR. Pt verbalizes
understanding of being NPO after midnight. No complaints from pt at this time, call mtz within reach.
[2024-08-18] VITALS (15 sets, daily range): BP systolic 90–132; BP diastolic 53–111; BMI 20.4
[2024-08-18 04:23] LABS: Hematocrit 41.9 % (39.0-52.0); Hemoglobin 14.5 g/dL (13.0-18.0); Mean Corp Hgb Conc. 34.6 g/dL (33.0-37.0); Mean Corpuscular Hgb 35.1 pg (27.0-31.0); Mean Corpuscular Volume 101.5 fL (80.0-94.0); Mean Platelet Volume 9.5 fL (7.4-10.4); Platelet Count 279 10^3/uL (130-400); Red Blood Cell Count 4.13 10^6/uL (4.70-6.10); Red Cell Dist. Width 13.1 % (11.5-14.5); White Blood Cell Count 7.5 10^3/uL (4.8-10.8)
[2024-08-18 04:52] LABS: Blood Urea Nitrogen 19 mg/dl (9-20); Calcium 8.8 mg/dl (8.4-10.2); Carbon Dioxide 25 mmol/L (22-30); Chloride 103 mmol/L (98-107); Estimated Creatinine Clearance 49 ml/min; Glucose 106 mg/dl (70-99); Magnesium 1.9 mg/dl (1.6-2.3); Potassium 3.6 mmol/L (3.5-5.1); Sodium 136 mmol/L (135-145); eGFR 59.47
--- NOTE | 2024-08-18 07:50 | PTCARENOTE ---
Assumed care of pt from prev nsg shift; Pt AAOX3 w/no c/o CP or SOB. Pt's HR continues in the 120's at rest. BP this AM 105/85. Pt is ST on telemetry monitoring. Pt w/IV Amio infusing as ordered. Pt w/callbell within reach & no addtl needs at this
time.
[2024-08-18] MEDS: SPIRIVA RESPIMAT 2.5 MCG 2 PUFF INH (08:22)
[2024-08-18] MEDS: STRIVERDI RESPIMAT 2 PUFF INH (08:22)
--- NOTE | 2024-08-18 08:30 | VNURNOTE ---
Chart reviewed. Patient is current with [facility] nursing. Will continue to follow hospital course and DC plans.
[2024-08-18] MEDS: WELLBUTRIN XL (24 hour extended release) 150 MG PO (09:33)
[2024-08-18] MEDS: LASIX 20 MG PO (09:34)
[2024-08-18] MEDS: ELIQUIS 5 MG PO ×2 (09:34→19:45)
[2024-08-18] MEDS: VITAMIN D3 (cholecalciferol) 25 MCG PO (09:34)
[2024-08-18] MEDS: CRESTOR 20 MG PO (09:34)
[2024-08-18] MEDS: FARXIGA 10 MG PO (09:34)
[2024-08-18] MEDS: VITAMIN B1 100 MG PO (09:34)
--- NOTE | 2024-08-18 10:07 | VATNOTE ---
Called to assess amnio infiltrate. Measuring at 10 X4.5 CM. Soft to touch. slightly reddened. painful to touch. Warm compress applied. Will continue to monitor closely.
--- NOTE | 2024-08-18 10:30 | PTCARENOTE ---
7115 This RN in to see pt & when asking if pt had any CP or discomfort, pt reported that his L forearm was 'hurting'. Pt stated it felt 'like it's not my IV', however pointed to his forearm along the vein where his IV was infusing. Site was painful
to palpation. IV Amiodarone stopped immediately, IV line D/C'd, & site marked for area of tenderness. Small amount of swelling noted. VAT called & in to see pt. Heat applied to infiltrate. New IV line placed for continuation of IV Amio infusion. Pt
advised to report any discomfort with this new line.
Report given to Sujatha in the EP lab. Pt taken via stretcher for PERI/CV at 1020.
--- NOTE | 2024-08-18 10:56 | W.PN.CARDCBS ---
Addendum entered and electronically signed by Kareem Butler DO 08/18/24 14:32:
I saw and examined the patient.
The Cable Splicing Technician's note was reviewed and I agree with the note.
Comment:
Plan:
PERI/cardioversion today.
Resume Amiodarone oral and d/c IV Amiodarone.
Cont Eliquis.
Outpt follow up echo to reeval MR with him maintaining sinus and with better HR control
Possibly for d/c next 24 hrs from cardiac standpoint if continues to improve.
Original Note:
Today's Communication / Plan
-
Status post PERI cardioversion with muslim of sinus rhythm
Repeat EKG in sinus rhythm for QT monitoring
Continue GDMT as blood pressure allows
DC amiodarone drip and resume oral dosing
Continue Eliquis
Impression / Plan
-
Management Liaison: Appointment with Dr. De La Cruz 10/07/24
Impression:
Presented 08/16/2024 with tachycardia
Tachyarrhythmia likely atrial tachycardia possibly atrial flutter
s/p CV
Nonischemic cardiomyopathy, EF 10-15%, diagnosed 07/25/24
Dilated RV with moderate hypokinesis/ mild pulmonary HTN
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
Moderate to severe MR on echocardiogram
Recent admission for cardiogenic shock with ARF/shock liver and BiPAP requiring milrinone gtt
Atrial fibrillation with rapid ventricular response, spontaneously converted to sinus rhythm, New diagnosis 07/25/2024
Non-NE myocardial ischemic troponin elevation
Hypertension
Hyperlipidemia
COPD
Tobacco abuse 1ppd for 40 years, quit 07/2024
Daily alcohol use, quit 07/2024
Bilateral hip replacements and shoulder replacement
Echo 07/31/2018: EF 55 to 60%. Mild concentric LVH. Mild MR, mild TR, PAP 15 to 20 mmHg
Echo 07/25/2024: LVEF 10 to 15% with global hypokinesis. Mildly dilated right ventricle with moderate RV hypokinesis. Moderate to severe eccentric MR. Moderate TR with PA pressure 40 to 45 mmHg.
ECHO 08/01/24: EF 15 to 20%, global hypokinesis, probable inferior, mid septal, mid anterior, apical akinesis, moderate and possibly severe MR
PERI 08/18/2024: EF 10 to 15%. Moderate to severe MR. No left atrial appendage thrombus. Patient was in rapid A-fib at time of PERI
RHC 07/29/24:
RA (m) : 10
RV (s/d,m) : 45/8, 14
PA (s/d, m) : 46/19, 29
PCWP (m) : 25
PA saturation: 63.5% on 2 L of oxygen via nasal cannula
AO saturation: 90.8% on 2 L of oxygen via nasal cannula
RA saturation: 62.4% on 2 L of oxygen via nasal cannula
Cardiac Output : 3.91 L/min
Cardiac Index : 2.1 L/min/m-2
Systemic vascular resistance: 1310 dsc^(-5)
Pulmonary vascular resistance:1.02 amato unit
Heart rate: 64 beats minute
AO (s/d) : 92/57
LV (s/d) : 92/12
LVEDP : 28
C 07/29/24:
DOMINANCE: Right
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 The left coronary artery extends into the LAD. There is 20% ostial stenosis
LEFT ANTERIOR DESCENDING: The left coronary artery is a medium to large caliber vessel which gives rise to 1 major diagonal branch as it courses to the anterior interventricular groove towards the apex. There is mild diffuse atherosclerotic plaque.
Ostial diagonal branch has eccentric 40% stenosis
CIRCUMFLEX: The left circumflex artery has an anomalous takeoff from the right coronary cusp just below the RCA takeoff and was selectively engaged using a 6 [place] MPA-1 diagnostic catheter. There is 20 to 30% stenosis in the proximal portion.
OM1 has moderate degree of tortuosity with 30% stenosis diffusely in the proximal portion.
RIGHT CORONARY ARTERY: The right coronary artery is a medium to large caliber, dominant vessel which gives rise to the right posterior descending artery and the right posterolateral system. There is mild to moderate degree of tortuosity in the
proximal portion. There is mild diffuse atherosclerotic plaque.
Plan:
Tachyarrhythmia with history of atrial fibrillation July 25, 2024hythm appears to be in atrial tachycardia, possibly atrial flutter
-Status post successful PERI/cardioversion 08/18/2024
-He was taking oral Amiodarone prior to arrival. Transitioned from oral to IV amiodarone on admission for rate control. Resume oral amiodarone at 200 mg daily.
-Patient had prolonged QTc last admission during amiodarone load. Will repeat EKG to assess QT interval post cardioversion
-Attempted to start carvedilol 3.125 mg twice daily but patient has not been getting due to low BP. Hopefully now that patient has been cardioverted blood pressure will improve and we can start Coreg
-Continue oral anticoagulation
-TSH 07/25/2024 within normal limit
Nonischemic cardiomyopathy with ejection fraction 10 to 15% with RV dysfunction diagnosed July 25, 2024, with moderate to severe mitral regurgitation. PERI 08/18/2024 with similar findings. Patient was in rapid A-fib at time of PERI
-Fortunately he appears compensated at this time with ongoing weight loss and improved renal function and LFTs.
-proBNP 6550 which is improved from 9540 on July 29, 2024 and 21,000 at time of admission July 25, 2024
-Hypotension has prevented GDMT. If BP allows with muslim of sinus rhythm attempt to add low-dose carvedilol. Transitioned hydralazine to low-dose lisinopril this admission and added Farxiga.
-Lasix reduced from 20 mg BID to 20 mg once daily and monitor volume status closely
-Eventual repeat echocardiogram to reassess heart function and mitral regurgitation as outpatient
Nonobstructive coronary artery disease�continue statin therapy with plan for repeat lipid profile as an outpatient. LDL estimation 07/31/2024 was 81 mg/dL, HDL 81 mg/dL, triglycerides 95 mg/dL. Total cholesterol 181 mg/dL.
Hyperglycemia with hemoglobin A1c in 2022 not elevated with no recent check. Will add on hemoglobin A1c to morning labs
Tobacco dependence�he reports that he has quit smoking since his recent hospitalization
Alcoholism�he reports that he is quit drinking since his last hospitalization
Discussed with hospitalist
HPI 08/17/2024:
I had the pleasure to see Lázaro Mcmahan for evaluation of tachycardia. Lázaro is a 69-year-old gentleman who recently had an 8-day hospitalization [facility] from July 25-2023 for acute systolic heart failure with cardiogenic shock.
He had a prior history of hypertension, hyperlipidemia, COPD with previous history of alcohol use and ongoing tobacco dependence with recent attempts to quit as of April. When he presented to the emergency department back on July 25 he was
found to be in rapid atrial fibrillation with hypoxic respiratory failure requiring BiPAP with a proBNP of 21,000 in addition to acute renal insufficiency with a creatinine of 1.7 and shock liver. His 2D echocardiogram showed an ejection fraction
of 10 to 15% with global hypokinesis with RV dysfunction and moderate to severe eccentric mitral regurgitation as well as moderate tricuspid regurgitation and pulmonary hypertension with estimated pulmonary pressures 40-45 mmHg. He underwent a
cardiac catheterization July 29, 2024 with nonobstructive coronary artery disease [20% ostial left main stenosis, 40% ostial diagonal branch stenosis, 20-30% proximal circumflex stenosis. 30% OM1 stenosis] with an anomalous takeoff of the left
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 Right heart catheterization also noted significantly elevated right and left-sided filling pressures with with pulmonary capillary wedge pressure 25 and borderline cardiac index at 2.1. He required IV
milrinone which was eventually weaned off by July 31 as goal-directed medical therapy was slowly introduced. He fortunately converted to sinus rhythm with IV amiodarone which was dose reduced due to prolonged QT. At time of discharge home with
[facility] he was transition to Lasix 40 mg p.o. twice daily, Eliquis 5 mg twice daily, amiodarone 200 mg daily, hydralazine 25 mg twice daily and was seen in the office for follow-up on August 07, 2021; No changes were made to his medical therapy at
this time. He states that since discharge he has refrain from smoking and drinking and open trying to follow a low-salt diet. He has noted ongoing weight loss and has felt lightheaded and 'dry '. He has been compliant with his medications and
denies missed doses of Eliquis anticoagulation. He denies chest pain or pressure, palpitations, or edema. He denies orthopnea. He has had no fevers or chills. No bleeding. [facility] notified our office August 15 due to low blood pressures and
tachycardia with heart rates in the 130s 160s which was fortunately asymptomatic. Lasix was reduced to 40 mg in the morning and 20 mg in the evening. He states that he declined ER evaluation as he was otherwise feeling well. When visiting nurses
returned on Sunday and noted that he was still tachycardic, he agreed to come to the ER for evaluation. In the emergency room he was given some normal saline fluid boluses as well as IV Lopressor with no significant movement of heart rates. He
remains in tachycardia in the 130s�140s overnight but fortunately is asymptomatic. He denies chest pain or pressure, shortness of breath, weight gain, edema, or bleeding. No syncope/near syncope but does occasionally have lightheadedness. He
denies missed doses of medications including Eliquis which was initiated in the hospital on July 31. Previous to this he had been on IV heparin with interruption of anticoagulation for cardiac catheterization on July 29.. He is worried
that current outpatient dose of Lasix is too much for him.
Progress Note - Management Liaison
Subjective
Date of Service: August 18, 2024
Patient seen and examined post cardioversion. Patient reports that he is feeling well. Denies chest pain, palpitations, dizziness, lightheadedness or shortness of breath
Objective
Labs:
08/18/24 03:48
08/18/24 03:48
Labs
Hgb 14.5 g/dL (13.0-18.0) 08/18/24 03:48
Hct 41.9 % (39.0-52.0) 08/18/24 03:48
Plt Count 279 10^3/uL (130-400) 08/18/24 03:48
Sodium 136 mmol/L (135-145) 08/18/24 03:48
Potassium 3.6 mmol/L (3.5-5.1) 08/18/24 03:48
BUN 19 mg/dl (9-20) 08/18/24 03:48
Creatinine 1.3 mg/dL (0.7-1.3) 08/18/24 03:48
Glucose 106 mg/dl (70-99) H 08/18/24 03:48
Troponins
08/16/24
11:34
Troponin I < 0.012
Vital Signs and I&O:
Vital Signs
Temp Pulse Resp BP Pulse Ox
98.3 F 129 16 95/75 98
08/18/24 07:38 08/18/24 10:15 08/18/24 08:33 08/18/24 09:00 08/18/24 08:33
Vital Signs
Temp Pulse Resp BP Pulse Ox
98.3 F 129 16 95/75 98
08/18/24 07:38 08/18/24 10:15 08/18/24 08:33 08/18/24 09:00 08/18/24 08:33
Intake & Output
08/16/24 08/17/24 08/18/24 08/19/24
06:59 06:59 06:59 06:59
Intake Total 1140 / 1140 360 / 360
Output Total 200 / 200 300 / 300 250 / 250
Balance 940 / 940 60 / 60 -250 / -250
Physical Exam
Physical Exam
GEN: No distress, awake, alert, oriented x3.
HEENT: supple, anicteric, mmm, eomi
LUNGS: CTA B/L, no wheezes
CV: Reg, S1/S2, 2/6 apical murmur
ABD: soft, BS+, NT/ND
EXT: No cyanosis, clubbing, edema
NEURO: Gross non-focal
SKIN: Warm, pink, dry. No rash.
--- NOTE | 2024-08-18 11:24 | W.PN.UPDATE ---
Update Note
Progress Note Update
Successful cardioversion to sinus rhythm. Full report to follow.
--- NOTE | 2024-08-18 13:24 | W.PN.HOSP.TC ---
Today's Communication/Plan
-
po amiodarone
monitor HR/BP
cards recs
GDMT being adjusted
Assessment / Plan
Assessment / Plan
Physical Exam
General: no acute distress appears comfortable at this time
HEENT: NormoCephalic, Moist mucous membranes, Atraumatic, PERRLA
Respiratory: Clear and Non Labored Respirations; No Wheezes, Rales, Rhonchi or Crackles
Cardiac: S1/S2, regular rhythm.
GI: Soft, Non Tender, Non Distended and Normal Bowel Sounds; No Organomegaly
Musculoskeletal: No Clubbing, No Cyanosis and No Edema
Neuro: AOx3
Psych: Calm
69M w/ pmhx including HTN, HLD, pAfib, HFrEF, and COPD recommended by visiting nurse for ED evaluation d/t significant tachycardia 150s though relatively asymptomatic, reported mild lightheadedness but denied palpitations shortness of breath or
chest pain. Admitted for further evaluation/treatment, Cardio eval concerning for atrial tachycardia vs aflutter, patient subsequently was transferred to IVU for amio gtt and plans for cardioversion Sunday.
#Atrial Tachycardia vs Aflutter
#Euvolemic, MT on admission ruled out (mild Cr elevation on admission 1.4 near baseline 1.2- 08/05 1.8 prior to admission since resolved)
#paroxysmal atrial fibrillation
recent hospitalization for CHF with 18 pound weight loss
received small IVF bolus given in ED in case symptoms driven by hypovolemia (unlikely at this time)
IV lopressor prn
Cardio eval appreciated
-amio gtt switched to po now 200mg daily
-home Lasix 20 mg BID reduced to daily
-Home Hydralazine discontinued
-Planned start on Coreg 3.125 mg BID and lisinopril (planned for transition to Entresto) on hold at this time d/t concerns relative hypotension
-Farxiga added
-s/p cardioversion. In NSR now.
#CKD unknown stage
-trend cr with diuresis.
#hyperlipidemia
#Non-obstructive CAD
- continue rosuvastatin
# Chronic HFrEF. EF 10-15%
BNP 6550
- continue furosemide reduced to 20 mg daily as above
-cont potassium supplementation, hold if off diuretics or K>5, could consider discontinuing if K consistently >4
#COPD
- continue Ellipta and ipratropium-albuterol PRN
#Alcohol dependency
Drank daily 3-4 drinks nightly, last drink 3 weeks ago, no previous withdraw symptoms
- monitor for withdraw
#Mitral regurgitation
#AAA
Code Status: Full Code
DVT Prophylaxis: Eliquis
Discussed with Cardiology
Anticipated Discharge: Within 24 hours
Subjective/Interval History
-
Date of Service: August 18, 2024
seen post DCCV
Currently in NSR
Denies any post procedural pain.
Objective Data
-
Labs:
Laboratory Results
08/18/24
03:48
WBC 7.5
Hgb 14.5
Hct 41.9
Plt Count 279
Sodium 136
Potassium 3.6
Chloride 103
Carbon Dioxide 25
BUN 19
Creatinine 1.3
Glucose 106 H
Calcium 8.8
Vital Signs:
Vital Signs
Temp Pulse Resp BP Pulse Ox
97.4 F 71 20 132/111 97
08/18/24 12:20 08/18/24 12:30 08/18/24 12:20 08/18/24 12:15 08/18/24 12:20
I&O
08/17/24 08/18/24 08/19/24
06:59 06:59 06:59
Intake Total 1140 / 1140 360 / 360
Output Total 200 / 200 300 / 300 250 / 250
Balance 940 / 940 60 / 60 -250 / -250
[2024-08-18] MEDS: PACERONE 200 MG PO (13:32)
[2024-08-18 15:48] LABS: Hepatitis C Antibody Negative (Negative)
[2024-08-18] MEDS: KCL 20 MEQ PO (18:04)
--- NOTE | 2024-08-18 22:41 | PTCARENOTE ---
Received patient at change of shift. SR on the monitor, HR in the 70s. VSS. L forearm infiltration marked, pink. No complaints from pt at this time, call mtz within reach.
[2024-08-19] VITALS (9 sets, daily range): BP systolic 84–100; BP diastolic 61–73; BMI 20.4
[2024-08-19 05:49] LABS: Blood Urea Nitrogen 17 mg/dl (9-20); Calcium 8.9 mg/dl (8.4-10.2); Carbon Dioxide 27 mmol/L (22-30); Chloride 104 mmol/L (98-107); Estimated Creatinine Clearance 49 ml/min; Glucose 94 mg/dl (70-99); Potassium 4.1 mmol/L (3.5-5.1); Sodium 140 mmol/L (135-145); eGFR 59.47
[2024-08-19] MEDS: STRIVERDI RESPIMAT 2 PUFF INH (07:25)
[2024-08-19] MEDS: SPIRIVA RESPIMAT 2.5 MCG 2 PUFF INH (07:25)
[2024-08-19] MEDS: FARXIGA 10 MG PO (09:27)
[2024-08-19] MEDS: LASIX 20 MG PO (09:27)
[2024-08-19] MEDS: VITAMIN B1 100 MG PO (09:28)
[2024-08-19] MEDS: VITAMIN D3 (cholecalciferol) 25 MCG PO (09:28)
[2024-08-19] MEDS: ELIQUIS 5 MG PO (09:28)
[2024-08-19] MEDS: PACERONE 200 MG PO (09:29)
[2024-08-19] MEDS: CRESTOR 20 MG PO (09:29)
[2024-08-19] MEDS: WELLBUTRIN XL (24 hour extended release) 150 MG PO (09:29)
--- NOTE | 2024-08-19 09:48 | PTCARENOTE ---
Pt HR SR. Reinforced medication education w/ pt. Pt states understanding, will need reinforcement. Per pt 'I don't know my meds, my son puts them in little boxes for each day and that's that'. L FA site where amio was infusing prior is pink and
tender - no movement outside of drawn border. Pt voiding. Good appetite.
--- NOTE | 2024-08-19 11:44 | W.PN.CARDCBS ---
Today's Communication / Plan
-
Remains in sinus after successful PERI/cardioversion Dec 2.
Continue oral Amiodarone. QTc has been stable.
Cont Eliquis.
Cont to hold Coreg and Lisinopril with hypotension, hopefully can resume as outpt.
Cont low dose lasix at 20 mg daily.
Outpt follow up echo to reeval MR with him maintaining sinus and with better HR control
Stable for d/c from cardiac standpoint as continues to improve.
Impression / Plan
-
.
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 De La Cruz 10/07/24
Impression:
Presented 08/16/2024 with tachycardia
Tachyarrhythmia likely atrial tachycardia possibly atrial flutter
s/p CV
Nonischemic cardiomyopathy, EF 10-15%, diagnosed 07/25/24
Dilated RV with moderate hypokinesis/ mild pulmonary HTN
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
Moderate to severe MR on echocardiogram
Recent admission for cardiogenic shock with ARF/shock liver and BiPAP requiring milrinone gtt
Atrial fibrillation with rapid ventricular response, spontaneously converted to sinus rhythm, New diagnosis 07/25/2024
Non-LA myocardial ischemic troponin elevation
Hypertension
Hyperlipidemia
COPD
Tobacco abuse 1ppd for 40 years, quit 07/2024
Daily alcohol use, quit 07/2024
Bilateral hip replacements and shoulder replacement
Echo 07/31/2018: EF 55 to 60%. Mild concentric LVH. Mild MR, mild TR, PAP 15 to 20 mmHg
Echo 07/25/2024: LVEF 10 to 15% with global hypokinesis. Mildly dilated right ventricle with moderate RV hypokinesis. Moderate to severe eccentric MR. Moderate TR with PA pressure 40 to 45 mmHg.
ECHO 08/01/24: EF 15 to 20%, global hypokinesis, probable inferior, mid septal, mid anterior, apical akinesis, moderate and possibly severe MR
PERI 08/18/2024: EF 10 to 15%. Moderate to severe MR. No left atrial appendage thrombus. Patient was in rapid A-fib at time of PERI
RHC 07/29/24:
RA (m) : 10
RV (s/d,m) : 45/8, 14
PA (s/d, m) : 46/19, 29
PCWP (m) : 25
PA saturation: 63.5% on 2 L of oxygen via nasal cannula
AO saturation: 90.8% on 2 L of oxygen via nasal cannula
RA saturation: 62.4% on 2 L of oxygen via nasal cannula
Cardiac Output : 3.91 L/min
Cardiac Index : 2.1 L/min/m-2
Systemic vascular resistance: 1310 dsc^(-5)
Pulmonary vascular resistance:1.02 amato unit
Heart rate: 64 beats minute
AO (s/d) : 92/57
LV (s/d) : 92/12
LVEDP : 28
C 07/29/24:
DOMINANCE: Right
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 The left coronary artery extends into the LAD. There is 20% ostial stenosis
LEFT ANTERIOR DESCENDING: The left coronary artery is a medium to large caliber vessel which gives rise to 1 major diagonal branch as it courses to the anterior interventricular groove towards the apex. There is mild diffuse atherosclerotic plaque.
Ostial diagonal branch has eccentric 40% stenosis
CIRCUMFLEX: The left circumflex artery has an anomalous takeoff from the right coronary cusp just below the RCA takeoff and was selectively engaged using a 6 [place] MPA-1 diagnostic catheter. There is 20 to 30% stenosis in the proximal portion.
OM1 has moderate degree of tortuosity with 30% stenosis diffusely in the proximal portion.
RIGHT CORONARY ARTERY: The right coronary artery is a medium to large caliber, dominant vessel which gives rise to the right posterior descending artery and the right posterolateral system. There is mild to moderate degree of tortuosity in the
proximal portion. There is mild diffuse atherosclerotic plaque.
Plan:
Remains in sinus after successful PERI/cardioversion Dec 2.
Continue oral Amiodarone. QTc has been stable.
Cont Eliquis.
Cont to hold Coreg and Lisinopril with hypotension, hopefully can resume as outpt.
Cont low dose lasix at 20 mg daily.
Outpt follow up echo to reeval MR with him maintaining sinus and with better HR control
Stable for d/c from cardiac standpoint as continues to improve.
Discussed with hospitalist
[facility] 08/17/2024:
I had the pleasure to see Lázaro Mcmahan for evaluation of tachycardia. Lázaro is a 69-year-old gentleman who recently had an 8-day hospitalization [place] from July 25-2023 for acute systolic heart failure with cardiogenic shock.
He had a prior history of hypertension, hyperlipidemia, COPD with previous history of alcohol use and ongoing tobacco dependence with recent attempts to quit as of April. When he presented to the emergency department back on July 25 he was
found to be in rapid atrial fibrillation with hypoxic respiratory failure requiring BiPAP with a proBNP of 21,000 in addition to acute renal insufficiency with a creatinine of 1.7 and shock liver. His 2D echocardiogram showed an ejection fraction
of 10 to 15% with global hypokinesis with RV dysfunction and moderate to severe eccentric mitral regurgitation as well as moderate tricuspid regurgitation and pulmonary hypertension with estimated pulmonary pressures 40-45 mmHg. He underwent a
cardiac catheterization July 29, 2024 with nonobstructive coronary artery disease [20% ostial left main stenosis, 40% ostial diagonal branch stenosis, 20-30% proximal circumflex stenosis. 30% OM1 stenosis] with an anomalous takeoff of the left
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 Right heart catheterization also noted significantly elevated right and left-sided filling pressures with with pulmonary capillary wedge pressure 25 and borderline cardiac index at 2.1. He required IV
milrinone which was eventually weaned off by July 31 as goal-directed medical therapy was slowly introduced. He fortunately converted to sinus rhythm with IV amiodarone which was dose reduced due to prolonged QT. At time of discharge home with
[facility] he was transition to Lasix 40 mg p.o. twice daily, Eliquis 5 mg twice daily, amiodarone 200 mg daily, hydralazine 25 mg twice daily and was seen in the office for follow-up on August 07, 2021; No changes were made to his medical therapy at
this time. He states that since discharge he has refrain from smoking and drinking and open trying to follow a low-salt diet. He has noted ongoing weight loss and has felt lightheaded and 'dry '. He has been compliant with his medications and
denies missed doses of Eliquis anticoagulation. He denies chest pain or pressure, palpitations, or edema. He denies orthopnea. He has had no fevers or chills. No bleeding. [facility] notified our office August 15 due to low blood pressures and
tachycardia with heart rates in the 130s 160s which was fortunately asymptomatic. Lasix was reduced to 40 mg in the morning and 20 mg in the evening. He states that he declined ER evaluation as he was otherwise feeling well. When visiting nurses
returned on Sunday and noted that he was still tachycardic, he agreed to come to the ER for evaluation. In the emergency room he was given some normal saline fluid boluses as well as IV Lopressor with no significant movement of heart rates. He
remains in tachycardia in the 130s�140s overnight but fortunately is asymptomatic. He denies chest pain or pressure, shortness of breath, weight gain, edema, or bleeding. No syncope/near syncope but does occasionally have lightheadedness. He
denies missed doses of medications including Eliquis which was initiated in the hospital on July 31. Previous to this he had been on IV heparin with interruption of anticoagulation for cardiac catheterization on July 29.. He is worried
that current outpatient dose of Lasix is too much for him.
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
Subjective
Date of Service: August 19, 2024
Pt seen and examined. No complaints. No chest pain or shortness of breath.
Objective
Labs:
08/18/24 03:48
08/19/24 05:01
Labs
Hgb 14.5 g/dL (13.0-18.0) 08/18/24 03:48
Hct 41.9 % (39.0-52.0) 08/18/24 03:48
Plt Count 279 10^3/uL (130-400) 08/18/24 03:48
Sodium 140 mmol/L (135-145) 08/19/24 05:01
Potassium 4.1 mmol/L (3.5-5.1) 08/19/24 05:01
BUN 17 mg/dl (9-20) 08/19/24 05:01
Creatinine 1.3 mg/dL (0.7-1.3) 08/19/24 05:01
Glucose 94 mg/dl (70-99) 08/19/24 05:01
Troponins
08/16/24
11:34
Troponin I < 0.012
Vital Signs and I&O:
Vital Signs
Temp Pulse Resp BP Pulse Ox
98.2 F 66 18 96/69 98
08/19/24 11:30 08/19/24 11:39 08/19/24 11:30 08/19/24 11:39 08/19/24 11:30
Vital Signs
Temp Pulse Resp BP Pulse Ox
98.2 F 66 18 96/69 98
08/19/24 11:30 08/19/24 11:39 08/19/24 11:30 08/19/24 11:39 08/19/24 11:30
Intake & Output
08/17/24 08/18/24 08/19/24 08/20/24
06:59 06:59 06:59 06:59
Intake Total 1140 / 1140 360 / 360 480 / 480
Output Total 200 / 200 300 / 300 500 / 500
Balance 940 / 940 60 / 60 -20 / -20
Physical Exam
Physical Exam
General: No acute distress, AAOX3
Neck: Negative JVD
Heart: Regular, Negative S3 positive S1/S2, Negative S4, No murmur
Lungs: CTA b/l, negative wheezes/rales/rhonchi
Abd: Positive BS, NT/ND, neg rebound/rigidity/guarding
Ext: Negative cyanosis/clubbing/edema
Neuro: nonfocal
--- NOTE | 2024-08-19 12:16 | VATNOTE ---
Vat rounds: left arm infiltrate resolving. Warm compress applied. Will continue to monitor
--- NOTE | 2024-08-19 12:18 | W.PN.HOSP.TC ---
Today's Communication/Plan
-
dc home
Op cards f/u
Assessment / Plan
Assessment / Plan
Physical Exam
General: no acute distress appears comfortable at this time
HEENT: NormoCephalic, Moist mucous membranes, Atraumatic, PERRLA
Respiratory: Clear and Non Labored Respirations; No Wheezes, Rales, Rhonchi or Crackles
Cardiac: S1/S2, regular rhythm.
GI: Soft, Non Tender, Non Distended and Normal Bowel Sounds; No Organomegaly
Musculoskeletal: No Clubbing, No Cyanosis and No Edema
Neuro: AOx3
Psych: Calm
69M w/ pmhx including HTN, HLD, pAfib, HFrEF, and COPD recommended by visiting nurse for ED evaluation d/t significant tachycardia 150s though relatively asymptomatic, reported mild lightheadedness but denied palpitations shortness of breath or
chest pain. Admitted for further evaluation/treatment, Cardio eval concerning for atrial tachycardia vs aflutter, patient subsequently was transferred to IVU for amio gtt and plans for cardioversion Sunday.
#Atrial Tachycardia vs Aflutter
#Euvolemic, MT on admission ruled out (mild Cr elevation on admission 1.4 near baseline 1.2- 08/05 1.8 prior to admission since resolved)
#paroxysmal atrial fibrillation
recent hospitalization for CHF with 18 pound weight loss
received small IVF bolus given in ED in case symptoms driven by hypovolemia (unlikely at this time)
IV lopressor prn
Cardio eval appreciated
-amio gtt switched to po now 200mg daily
-home Lasix 20 mg BID reduced to daily
-Home Hydralazine discontinued
-Continue to hold carvedilol and lisinopril as with hypotension. Can be restarted as outpatient. QTc remained stable.
-Farxiga added
-s/p cardioversion. In NSR now.
#CKD unknown stage
-trend cr with diuresis. Lasix restarted after we reduced dose.
#hyperlipidemia
#Non-obstructive CAD
- continue rosuvastatin
# Chronic HFrEF. EF 10-15%
BNP 6550
- continue furosemide reduced to 20 mg daily as above
-cont potassium supplementation, hold if off diuretics or K>5, could consider discontinuing if K consistently >4
#COPD
- continue Ellipta and ipratropium-albuterol PRN
#Alcohol dependency
Drank daily 3-4 drinks nightly, last drink 3 weeks ago, no previous withdraw symptoms
- monitor for withdraw
#Mitral regurgitation
#AAA
Code Status: Full Code
DVT Prophylaxis: Eliquis
Discussed with Cardiology okay for discharge
More than 30 minutes spent in discharge including
Final examination of the patient
Summarizing hospital stay
Instructions for continuing care to all relevant caregivers
Preparation of discharge records, prescriptions, and referral forms
Total time spent (in minutes): 52
Dispo-home VN
Anticipated Discharge: Today
Subjective/Interval History
-
Date of Service: August 19, 2024
remains in NSR
Denies any chest pain palpitation.
Denies any lightheaded and dizzy
Walking around in the room without any difficulty.
Objective Data
-
Labs:
Laboratory Results
08/19/24
05:01
Sodium 140
Potassium 4.1
Chloride 104
Carbon Dioxide 27
BUN 17
Creatinine 1.3
Glucose 94
Calcium 8.9
Vital Signs:
Vital Signs
Temp Pulse Resp BP Pulse Ox
98.2 F 66 18 96/69 98
08/19/24 11:30 08/19/24 11:39 08/19/24 11:30 08/19/24 11:39 08/19/24 11:30
I&O
08/18/24 08/19/2424
06:59 06:59 06:59
Intake Total 360 / 360 480 / 480
Output Total 300 / 300 500 / 500
Balance 60 / 60 -20 / -20
--- NOTE | 2024-08-19 12:27 | W.DCSUMMARY ---
Discharge Summary
Discharge Data
Date of Admission: 08/18/24
Date of Discharge: 08/19/24
-
Pending Results: No
Hospital Course
69M w/ pmhx including HTN, HLD, pAfib, HFrEF, and COPD recommended by visiting nurse for ED evaluation d/t significant tachycardia 150s though relatively asymptomatic, reported mild lightheadedness but denied palpitations shortness of breath or
chest pain. Admitted for further evaluation/treatment, Cardio eval concerning for atrial tachycardia vs aflutter, patient subsequently was transferred to IVU for amio gtt. Underwent PERI/DCCV. Converted to NSR and remained in NSR. Also found to have
a hypotension and Lasix dose 20mg frequency was decreased to daily. Hydralazine was discontinued. As outpatient patient can be evaluated for reinitiation of beta-simone and SONU inhibitor is currently with hypotension. Elevated creatinine which
improved. Repeat EKG with stable QTc. Per cardiology patient can be discharged with outpatient follow-up.
Discharge Plan
-
Patient Disposition: Home with Home Care
Discharge Diagnosis/Procedures: Tachyarrhythmia likely atrial tachycardia possibly atrial flutter status post transesophageal echocardiogram /cardioversion
Hypotension
Elevated creatinine
Condition: Fair
Diet: 2 Gram Sodium and Restrict fluids to 48 oz
Activity: With assistance and As tolerated
Driving Restrictions: As prior to admission
Blood Work: BMP in 7 to 10 days with primary doctor
Other Services: VN
Specialty Instructions: Weigh Daily- Call MD for wt gain/loss 3 lbs overnight/5 lbs in 1 week
Referrals:
[facility] [Outside]
Kareem Butler DO [Active] - in two to three weeks (call to make appt)
Jenna Green DO [Family Provider] - in less than 1 week
Additional Discharge Medication Instructions: Hydralazine was discontinued
Lasix 20mg frequency was decreased to daily.
Prescriptions:
New
dapagliflozin propanediol 10 mg Tablet
10 mg PO DAILY 30 Days Qty: 30 0RF
furosemide 20 mg Tablet
20 mg PO DAILY 30 Days Qty: 30 0RF
Continued
Anoro Ellipta 62.5-25 mcg/actuation Blister With Device
1 inh INHALATION R DAILY
ipratropium-albuterol 0.5 mg-3 mg(2.5 mg base)/3 mL Solution For Nebulization
3 ml INHALATION R BID
amiodarone 200 mg Tablet
200 mg PO DAILY Qty: 30 0RF
thiamine HCl (vitamin B1) 100 mg Tablet
100 mg PO DAILY Qty: 30 0RF
cholecalciferol (vitamin D3) 25 mcg (1,000 unit) Tablet
25 mcg PO DAILY Qty: 30 0RF
Eliquis 5 mg Tablet
5 mg PO BID Qty: 60 0RF
rosuvastatin [Crestor] 20 mg Tablet
20 mg PO DAILY
bupropion HCl [Wellbutrin XL] 150 mg tablet extended release 24 hr
150 mg PO UD
Rx Instructions:
take 150mg daily with 25mg sertaline daily then after 2 weeks stop wellbutrin 150mg and increase sertaline to 50mg daily
potassium chloride 20 mEq Tablet Extended Release
20 meq PO DAILY@1600
Discontinued
hydralazine 25 mg tablet
25 mg PO BID Qty: 60 0RF
furosemide 40 mg tablet
20 mg PO BID
Discharge Orders:
Discharge Patient (As Directed); Ordered 08/19/24
Ordered By: Philipp Alvarez
Care Plan Goals
Care Plan Goals:
Problem: Readiness for enhanced knowledge related to diagnosis and treatment plan
Goal: Understand your diagnosis and treatment plan needs, including medications if applicable.
Instructions: Know your diagnosis, underlying causes and treatment plan options, including medications if applicable. Consult with your health care team to learn about your diagnosis and treatment plan, including medications if applicable.
Discharge Date and Time
Print Language: TAMAZIGHT
--- NOTE | 2024-08-19 15:25 | PTCARENOTE ---
Discharge instructions reviewed w/ pt and spouse. Pt states understanding. IV removed. tele pack removed. pt belongings w/ pt. Pt d/c.
== END 2024-08-19 15:22 | disposition home or self-care (01) | DRG 309 ==
LOC: IVU 07:54
PROVIDERS: Internal Medicine; Nurse Practitioner Family; ADMITTING PHYSICIAN Internal Medicine; ATTENDING PHYSICIAN Hospitalist; CONSULT PHYSICIAN Internal Medicine Cardiovascular Disease; EMERGENCY PHYSICIAN Emergency Medicine; FAMILY PHYSICIAN Internal Medicine
PROC: 5A2204Z Restoration of Cardiac Rhythm, Single (ICD-10-PCS; 2024-08-18)
PROC: B24BZZ4 Ultrasonography of Heart with Aorta, Transesophageal (ICD-10-PCS; 2024-08-18)
DX: I47.19 Other supraventricular tachycardia (principal); I50.22 Chronic systolic (congestive) heart failure; N17.9 Acute kidney failure, unspecified; I48.92 Unspecified atrial flutter; I48.91 Unspecified atrial fibrillation; I11.0 Hypertensive heart disease with heart failure; J44.9 Chronic obstructive pulmonary disease, unspecified; F10.20 Alcohol dependence, uncomplicated; I08.1 Rheumatic disorders of both mitral and tricuspid valves; I71.40 Abdominal aortic aneurysm, without rupture, unspecified; Z79.01 Long term (current) use of anticoagulants; E78.00 Pure hypercholesterolemia, unspecified
CPT/HCPCS: 71046; 71275; 80048; 80053; 82607; 82728; 82746; 83540; 83550; 83735; 83880; 84100; 84484; 85025; 85027; 85379; 86803; 92960; 93005; 93312; 93320; 93325; 94640; 96360; 96361; 99285; Q9967

== ENCOUNTER 2024-09-12 09:02 | Day surgery (SDC) | payer OTHER, SELFPAY ==
--- NOTE | 2024-09-12 13:54 | ITS.CL.CARDI ---
Tannery Gummer - Cardioversion
Cardioversion
Procedure Report:
Date of Procedure: 09/12/24
Procedure: Cardioversion
Indication: Symptomatic atrial fibrillation
Performing Physician: Sherice Perez DO [facility]
Anticoagulation: Eliquis
Antiarrhythmic therapy: Amiodarone/metoprolol succinate
Technique: The patient was brought to the holding area. Signed informed consent was obtained. A time out was called and performed. The patient was anesthetized by the anesthesia service. Anticoagulation status was reviewed and appropriate. R2 pads
were placed anteriorly and posteriorly. A 200J synchronized biphasic shock restored normal sinus rhythm without significant bradycardia. There were no complications.
Conclusion: Uncomplicated cardioversion from atrial fibrillation to sinus rhythm. Post procedure blood pressures low with systolic blood pressures in the upper 90s. No symptoms. Will stop metoprolol succinate until seen in the office. He was
instructed to monitor blood pressure/heart rate trends.
Recommendation: Routine post cardioversion care. Continue half-way anticoagulation.
== END 2024-09-12 11:23 | disposition home or self-care (01) ==
LOC: CATH 09:02
PROVIDERS: ATTENDING PHYSICIAN Internal Medicine Cardiovascular Disease; FAMILY PHYSICIAN Internal Medicine
DX: I48.91 Unspecified atrial fibrillation (principal); I11.0 Hypertensive heart disease with heart failure; I50.22 Chronic systolic (congestive) heart failure; E78.5 Hyperlipidemia, unspecified; J44.9 Chronic obstructive pulmonary disease, unspecified; I25.10 Atherosclerotic heart disease of native coronary artery without angina pectoris; I34.0 Nonrheumatic mitral (valve) insufficiency; Z87.891 Personal history of nicotine dependence; Z79.01 Long term (current) use of anticoagulants
CPT/HCPCS: 92960; 93005

== ENCOUNTER 2024-10-03 07:02 | Day surgery (SDC) | payer OTHER, SELFPAY | END 2024-10-03 09:40 | disposition home or self-care (01) | LOC: CATH 07:02 | PROVIDERS: ATTENDING PHYSICIAN Student in an Organized Health Care Education/Training Program; FAMILY PHYSICIAN Internal Medicine; OTHER PHYSICIAN Internal Medicine Cardiovascular Disease | DX: I48.91 Unspecified atrial fibrillation (principal); I08.3 Combined rheumatic disorders of mitral, aortic and tricuspid valves; I08.8 Other rheumatic multiple valve diseases; I70.0 Atherosclerosis of aorta; I48.92 Unspecified atrial flutter; I50.20 Unspecified systolic (congestive) heart failure; I11.0 Hypertensive heart disease with heart failure; J44.9 Chronic obstructive pulmonary disease, unspecified; Z87.891 Personal history of nicotine dependence | CPT/HCPCS: 93312; 93320; 93325; 92960; 93005 ==

== ENCOUNTER → 2024-10-14 10:31 | Outpatient (REF) | payer OTHER, SELFPAY | LOC: DHSLP 10:31 | PROVIDERS: ATTENDING PHYSICIAN Internal Medicine Cardiovascular Disease; FAMILY PHYSICIAN Internal Medicine | DX: G47.33 Obstructive sleep apnea (adult) (pediatric) (principal) | CPT/HCPCS: 95800 ==

== ENCOUNTER → 2024-11-06 11:08 | Outpatient (REF) | payer OTHER, SELFPAY | LOC: HWRCS 11:08 | PROVIDERS: ATTENDING PHYSICIAN Nurse Practitioner; FAMILY PHYSICIAN Internal Medicine | DX: I50.20 Unspecified systolic (congestive) heart failure (principal) | CPT/HCPCS: 93306 ==

== ENCOUNTER 2024-11-28 06:03 | Day surgery (SDC) | payer OTHER, SELFPAY ==
[2024-11-10 11:15] VITALS: BMI 22.8
[2024-11-10 11:49] LABS: % Basophils 0.5 % (0-2); % Immature Granulocytes 0.4 % (0-0.5); % Lymphocytes 19.7 % (20.5-51.1); % Monocytes 8.4 % (1.7-9.3); Absolute Basophils 0.1 10^3/uL (0-0.2); Absolute Eosinophils 0.1 10^3/uL (0-0.7); Absolute Lymphocytes 1.8 10^3/uL (1.2-3.4); Absolute Monocytes 0.8 10^3/uL (0.1-0.6); Absolute Neutrophils 6.4 10^3/uL (1.4-6.5); Hematocrit 47.4 % (39.0-52.0); Hemoglobin 16.3 g/dL (13.0-18.0); Mean Corp Hgb Conc. 34.4 g/dL (33.0-37.0); Mean Corpuscular Hgb 34.8 pg (27.0-31.0); Mean Corpuscular Volume 101.3 fL (80.0-94.0); Mean Platelet Volume 9.3 fL (7.4-10.4); Nucleated Red Blood Cells % 0 % (-); Platelet Count 223 10^3/uL (130-400); Red Blood Cell Count 4.68 10^6/uL (4.70-6.10); Red Cell Dist. Width 13.4 % (11.5-14.5); White Blood Cell Count 9.2 10^3/uL (4.8-10.8)
[2024-11-10 12:00] LABS: INR 1.12; PT 14.8 Sec (11.4-14.6)
[2024-11-10 12:08] LABS: ALT (SGPT) 54 U/L (0-50); AST (SGOT) 39 U/L (17-59); Albumin 4.7 g/dl (3.5-5.0); Alkaline Phosphatase 82 U/L (38-126); Blood Urea Nitrogen 22 mg/dl (9-20); Calcium 9.6 mg/dl (8.4-10.2); Carbon Dioxide 27 mmol/L (22-30); Chloride 102 mmol/L (98-107); Estimated Creatinine Clearance 51 ml/min; Glucose 94 mg/dl (70-99); Magnesium 2.3 mg/dl (1.6-2.3); Potassium 4.3 mmol/L (3.5-5.1); Sodium 138 mmol/L (135-145); Total Bilirubin 0.8 mg/dl (0.2-1.3); Total Protein 7.1 g/dl (6.3-8.2); eGFR 54.41
[2024-11-28] VITALS (10 sets, daily range): BP systolic 113–168; BP diastolic 64–89; BMI 22.7
[2024-11-28 08:55] LABS: ACT-LR - POC 287 Seconds (116-155)
[2024-11-28 09:19] LABS: ACT-LR - POC 294 Seconds (116-155)
[2024-11-28 09:35] LABS: ACT-LR - POC 324 Seconds (116-155)
[2024-11-28 10:02] LABS: ACT-LR - POC 306 Seconds (116-155)
[2024-11-28 10:49] LABS: ACT-LR - POC 165 Seconds (116-155)
[2024-11-28] MEDS: ANESTHETIC LOZENGE 1 LOZENGE PO (11:39)
--- NOTE | 2024-11-28 14:44 | W.PN.UPDATE ---
Addendum entered and electronically signed by LIZ Childers 11/28/24 14:46:
ADD: will decrease amiodarone to 200mg daily starting in AM.
Original Note:
Update Note
Progress Note Update
Pt seen post PFA. Bilat groin sites without ht/bleeding, non tender. OOB ambulating, urinating without difficulty. Post EKG NSR 60s w/anterolateral TWI as before, no acute changes. Resume eliquis tonight, continue amiodarone and other meds as
before. Folowup w/Dr. Espinal as scheduled. Home today if groin sites/tele remain stable.
--- NOTE | 2024-11-28 18:30 | ITS.CL.ABL ---
Nuclear Reactor Engineer - Ablation
Ablation
Procedure Report:
Primary Telephone Coin Box Collector: Dutch Espinal MD
Procedure Date: 11/28/2024
Patient History:
Patient is a pleasant 69-year-old male with a past medical history significant for heart failure with reduced ejection fraction, hypertension, COPD, tobacco use disorder, hyperlipidemia, nonischemic cardiomyopathy, paroxysmal atrial fibrillation,
and paroxysmal atrial flutter.
Indication:
Symptomatic paroxysmal atrial fibrillation
Symptomatic paroxysmal atrial flutter
Recurrence/failed antiarrhythmic medical therapy
Arrhythmia Specific History:
Prior Medical Therapies for Rate and Rhythm Control:
X Beta-simone
[ ] Calcium channel-simone
X Amiodarone
[ ] Dronederone
[ ] Sotalol
[ ] Flecainide
[ ] Dofetilide
[ ] Options limited by bradycardia
[ ] Options limited by comorbid renal disease
Prior Procedural Therapies for AF/AFL:
X Cardioversion
[ ] Pulmonary Vein Isolation
[ ] Posterior Wall Isolation
[ ] Additional lines (Specify)
[ ] Surgical Spaulding-MAZE or PVI (Specify)
Procedure Performed:
X AF ablation procedure (52913) -- includes LA/CS pacing, trans-septal, 3D mapping, + ICE
[ ] +IV drug (48561)
X +Other Arrhythmia (42253) - CTI RFA for typical atrial flutter
X +Other AF Line/ablation (78221) - Posterior Wall Isolation (floor roof wall)
Risks and expected recovery has been explained in detail. Alternative options have been explored, and in a shared-decision making fashion we have decided that this was the most appropriate procedure.
Method:
NPO status confirmed. Grounding pad applied. Defibrillator pads applied. Continuous surface ECG, pulse oximetry, and blood pressure were monitored. Procedure was performed under general anesthesia, with anesthesia services.
Both groins were clipped, prepped with Chloraprep, and draped in sterile fashion. Time out was called. Local anesthesia administered with bupivacaine. The right vein was accessed for catheter placement, using ultrasound guidance (images saved to
record), micro-puncture needle/wire, and modified seldinger technique. 3 sheaths were placed. The following catheters were used:
X Tacticath SE (D/F Curve) ablation catheter
X Viewflex 9Fr ICE catheter
X Inquiry decapolar 6Fr diagnostic catheter
[ ] CRD Hex 6Fr
[ ] Arctic Front Advance Cryoballoon ([ ]28mm[ ]23mm)
[ ] Achieve Advance mapping catheter ([ ]15mm[ ]20mm)
X FlexCath Contour 10 Fr with PulseSelect PFA Catheter
X Advisor HD Grid Mapping Catheter, SE
[ ] Acuson AcuNav 8 Fr ICE catheter
[ ]Other: [ ]
Intracardiac ultrasound (ICE) was carefully advanced into the right atrium to guide sheath placement over a J-wire, catheter placement, guide trans-septal puncture, identify potential complications, identify anatomic structures and ensure proper
contact between ablation catheter and tissue.
A multipolar catheter were advanced to the coronary sinus. A mapping / ablation catheter was used to record and pace. Intracardiac ultrasound (ICE) was utilized for structural assessment and monitoring. Patient entered the room in sinus
bradycardia. A TactiCath DF was advanced through the steerable sheath and baseline trans-isthmus time bidirectionally (ablation catheter to proximal CS) was recorded.
An electroanatomic three-dimensional map of the right atrium was constructed, with careful attention to anatomic landmarks, including the coronary sinus, IVC-RA and SVC-RA junction, tricuspid valve annulus, and region of the His bundle electrogram.
An ablation line was created from the tricuspid annulus to the IVC in the 6:00 position (AZERI clock). Power was titrated between 30 and 40 Mackenzie with careful monitoring of impedance, temperature and conduction. The line was completed during CS
pacing, and bidirectional block was achieved.
Next, we turned out attention to the PVI.
Heparin was given prior to trans-septal puncture. Heparin was given to achieve and maintain a target ACT of 300-400 seconds throughout the procedure.
Trans-septal access was performed under ICE guidance. No evidence of pericardial effusion or MELANY thrombus noted at the start of the procedure. No change occured during or at case completion. The trans-septal puncture was performed with a SafeSept
wire through a Brockenbrough needle assembly through the steerable sheath. The wire was visualized as it entered the LSPV and system advanced under ICE guidance and fluoroscopy into the LA. The Brockenbrough needle assembly, SafeSept wire and sheath
dilator were removed under negative pressure. LA pressure was measured and recorded.
ICE and 3D mapping was performed to identify relevant cardiac structures. A careful 3D map was created to assess for regions of low-voltage and abnormal electrogram signals using HD grid mapping catheter and PulseSelect catheter. Additional mapping
was performed as outlined below.
Prior to ablation, glycopyrrolate was provided. PulseSelect catheter was advanced over J-wire to the ostium of each vein. Pulmonary vein isolation was performed with ostial and antral lesions in a circumferential manner. Contact was visualized via
EAM, ICE, fluoroscopy, and EGM signals. Posterior wall isolation was performed by anchoring the J-wire within the pulmonary vein and placing the PulseSelect catheter in contact with the posterior wall as visualized by aforementioned methods.
Following completion of ablation lesions, a post-ablation voltage/activation map was performed in atrial pacing. Entrance and exit block were confirmed for each vein and the posterior wall.
Catheter and sheath were removed from the left atrium and post-ablation intracardiac echo evaluation was consistent with pre-ablation with no changes and no pericardial effusion and there is no left atrial thrombus or left ventricle thrombus seen.
The ablation line was mapped to ensure widely spaced double potentials and bidirectional block persisted. Electrophysiology study was performed. No arrhythmia was induced. Hemostasis was obtained with figure of 8 stitch for each groin and with
manual pressure. Protamine was used for reversal.
Estimated Blood Loss
5 mL
Complications
None
Fluoroscopy: 5.7 minutes; 27.12 mGy; DAP 3.30
Baseline Intervals:
Rhythm: SB
ME: 150 ms
QRS: 115 ms
QT: 467 ms
QTc: 480 ms
Post-Procedure Intervals:
ME: 139 ms
QRS: 107 ms
QT: 516 ms
QTc: 502 ms
AVWB: 350 ms
AERP: 600/240 ms
Recommendations
- Bedrest with straight-leg precautions as ordered
- Anticipate same day discharge if patient meeting clinical metrics
- Resume home medications as indicated
- Ok to resume anticoagulation tonight if patient and groin sites stable
- PPI daily for 30 days
- Plan for follow-up in office in as scheduled
- Reduce amiodarone to 200 mg daily, plan for discontinuation at 3 mo post ablation
Justyn Noguera DO, FACC
Clinical Cardiac Survey Crew Chief
cc: Dutch Espinal MD; Jenna Green DO
[2024-12-01 08:21] LABS: ACT-LR - POC > 397 Seconds (116-155)
== END 2024-11-28 15:50 | disposition home or self-care (01) ==
LOC: CATH 06:03
PROVIDERS: ATTENDING PHYSICIAN Internal Medicine Cardiovascular Disease; FAMILY PHYSICIAN Internal Medicine; OTHER PHYSICIAN Internal Medicine Cardiovascular Disease
DX: I48.0 Paroxysmal atrial fibrillation (principal); I13.0 Hypertensive heart and chronic kidney disease with heart failure and stage 1 through stage 4 chronic kidney disease, or unspecified chronic kidney disease; N18.30 Chronic kidney disease, stage 3 unspecified; I50.22 Chronic systolic (congestive) heart failure; I42.8 Other cardiomyopathies; J43.9 Emphysema, unspecified; Z87.891 Personal history of nicotine dependence; I48.92 Unspecified atrial flutter; E78.5 Hyperlipidemia, unspecified; M19.90 Unspecified osteoarthritis, unspecified site; F10.11 Alcohol abuse, in remission; I71.43 Infrarenal abdominal aortic aneurysm, without rupture; K76.0 Fatty (change of) liver, not elsewhere classified; F32.A Depression, unspecified; F41.9 Anxiety disorder, unspecified; I34.0 Nonrheumatic mitral (valve) insufficiency; R41.89 Other symptoms and signs involving cognitive functions and awareness; Z79.899 Other long term (current) drug therapy; Z79.01 Long term (current) use of anticoagulants
CPT/HCPCS: C1769; C1892; C1894; C1732; C2630; C1733; C1766; 36415; 75572; 76937; 80053; 83735; 85025; 85347; 85610; 86850; 86900; 86901; 93005; 93655; 93656; 93657; Q9967

== ENCOUNTER → 2025-03-03 14:02 | Outpatient (REF) | payer OTHER, SELFPAY | LOC: HWRCS 14:02 | PROVIDERS: ATTENDING PHYSICIAN Internal Medicine Cardiovascular Disease; FAMILY PHYSICIAN Internal Medicine | DX: I42.8 Other cardiomyopathies (principal) | CPT/HCPCS: 93306 ==

== ENCOUNTER → 2025-05-08 10:32 | Outpatient (REF) | payer OTHER, SELFPAY ==
[2025-05-08 12:28] LABS: Hematocrit 46.8 % (39.0-52.0); Hemoglobin 15.8 g/dL (13.0-18.0); Mean Corp Hgb Conc. 33.8 g/dL (33.0-37.0); Mean Corpuscular Volume 98.3 fL (80.0-94.0); Nucleated Red Blood Cells % 0 % (-); Platelet Count 363 10^3/uL (130-400); Red Cell Dist. Width 14.5 % (11.5-14.5)
[2025-05-08 14:48] LABS: ALT (SGPT) 36 U/L (0-50); AST (SGOT) 34 U/L (17-59); Albumin 4.2 g/dl (3.5-5.0); Alkaline Phosphatase 96 U/L (38-126); Blood Urea Nitrogen 22 mg/dl (9-20); Calcium 9.3 mg/dl (8.4-10.2); Carbon Dioxide 23 mmol/L (22-30); Chloride 103 mmol/L (98-107); Glucose 87 mg/dl (70-99); HDL Cholesterol 74 mg/dl; LDL Cholesterol, Calculated 109 mg/dl; Potassium 4.8 mmol/L (3.5-5.1); Sodium 137 mmol/L (135-145); Total Protein 6.9 g/dl (6.3-8.2); Very Low Density Lipoprotein 18 mg/dl (0-30); eGFR 59.47
== END ==
LOC: HWLAB 10:32
PROVIDERS: ATTENDING PHYSICIAN Internal Medicine
DX: I10 Essential (primary) hypertension (principal); I48.0 Paroxysmal atrial fibrillation; I50.20 Unspecified systolic (congestive) heart failure; N28.9 Disorder of kidney and ureter, unspecified; N18.31 Chronic kidney disease, stage 3a; I13.0 Hypertensive heart and chronic kidney disease with heart failure and stage 1 through stage 4 chronic kidney disease, or unspecified chronic kidney disease; D64.9 Anemia, unspecified; E78.5 Hyperlipidemia, unspecified; R45.89 Other symptoms and signs involving emotional state; F33.1 Major depressive disorder, recurrent, moderate; F43.10 Post-traumatic stress disorder, unspecified; I71.43 Infrarenal abdominal aortic aneurysm, without rupture; Z86.0101 Personal history of adenomatous and serrated colon polyps; Z80.0 Family history of malignant neoplasm of digestive organs; R68.89 Other general symptoms and signs
CPT/HCPCS: 36415; 80053; 80061; 84443; 85025